=== PATIENT | female | born 1940 | race Caucasian/White ===

== ENCOUNTER 2021-04-13 17:54 | Inpatient (IN) | payer MEDICARE, OTHER ==
[~2021-04-13] VITALS: Ht 160 cm; Wt 67.6 kg
[2021-04-14] MEDS ORDERED: ONDANSETRON 4 MG (ZOFRAN) ORAL DISSOLVE TAB PO PRN (09:15)
[2021-04-14] MEDS ORDERED: MELATONIN 3 MG TABLET PO PRN (09:15)
[2021-04-14] MEDS ORDERED: guaiFENesin/DM (ROBITUSSIN DM) 10 ML UDC PO PRN (09:15)
[2021-04-14] MEDS ORDERED: ONDANSETRON 4 MG/2 ML (SDV) Z0FRAN IV PRN (09:15)
[2021-04-14] MEDS ORDERED: polyethylene glycoL POWDER 17 GM (MIRALAX) PACK PO PRN (09:15)
[2021-04-14] MEDS ORDERED: ANTACID SUSP 30 ML UDC (MYLANTA) PO PRN (09:15)
[2021-04-14] MEDS: ENOXAPARIN 40 MG/0.4 ML (LOVENOX) SYR SC SCH (09:45)
--- NOTE | 2021-04-14 09:57 | History & Physical-Hospitalist ---
History of Present Illness HPI/Chief Complaint CC: Acute hypoxic respiratory failure due to Covid-19 pneumonia from [place], [place] HPI: This is a female patient who was flown in from [place], [place] due to acute hypoxic respiratory failure due to Covid-19 pneumonia. Details are minimal considering she is in mild respiratory distress. She is prone, she is on Vapotherm and we talked briefly. She wants to be a full code, full intubation if that should come to be required. I will review the records and I did check her meds and labs and acute orders from Dr. Deng. Source: patient, RN/MD Exam Limitations: clinical condition Date Seen 04/14/21 Time Seen by a Provider: 11:00 Attending Physician Leny Deng MD PCP No,Local Physician Referring Physician Date of Admission Apr 14, 2021 at 09:12 Home Medications & Allergies Home Medications Reviewed patient Home Medication Reconciliation performed by pharmacy medication reconciliations technician support engineer and/or nursing. Patients Allergies have been reviewed. Allergies Allergies Coded Allergies Penicillins (Verified Allergy, Unknown, 04/14/21) codeine (Verified Allergy, Unknown, 04/14/21) theophylline (Verified Allergy, Unknown, 04/14/21) Past Huuldde-Dtajss-Ebmrum Hx Patient Social History Marrital Status: single Employed/Student: retired Tobacco Use?: No Smoking Status: Unknown if Ever Smoked Substance use?: No Alcohol Use?: No Current Status Advance Directives: No Communicates: Verbally Primary Language: Micronesian Preferred Spoken Language: Micronesian Is interpretation needed?: No Implanted or Applied Medical D: None Past Medical History Hypothyroidsim Review of Systems ROS-Unable to Obtain: Critical illness Constitutional: see HPI, dizziness, fever, malaise, weakness EENTM: no symptoms reported Respiratory: cough, dyspnea on exertion, short of breath, wheezing Cardiovascular: no symptoms reported Gastrointestinal: no symptoms reported All Other Systems Reviewed Negative Unless Noted: Yes Physical Exam Physical Exam Vital Signs Vital Signs - First Documented 04/14/21 04/14/21 04/14/21 09:15 09:21 09:30 Temp 36.6 Pulse 68 Resp 23 B/P (MAP) 135/67 Pulse Ox 89 O2 Delivery Vapotherm O2 Flow Rate 20.00 FiO2 70 Capillary Refill : Height, Weight, BMI Height: '" Weight: lbs. oz. kg; 26.21 BMI Method: General Appearance: Anxious, Chronically ill, Moderate Distress, Thin, Other (Prone, feverish, fatigued) Neck: Full Range of Motion, Normal Inspection, Non Tender Respiratory: Accessory Muscle Use, Decreased Breath Sounds Cardiovascular: No Murmur, Normal Peripheral Pulses, Tachycardia Extremity: Normal Capillary Refill, Normal Inspection, Normal Range of Motion, Non Tender, No Calf Tenderness, No Pedal Edema Neurologic/Psychiatric: Alert, Oriented x3 Results Results/Procedures Labs Laboratory Tests 04/15/21 01:50 Patient resulted labs reviewed. Assessment/Plan Admission Diagnosis Assessment: Acute hypoxic respiratory failure COVID-19 pneumonia Hypothyroidism Bacterial pneumonia Advanced age Plan: eICU management appreciated Vapotherm Prone Supportive care High risk for intubation Admission Status: Inpatient Order (span 2 midnights) Reason for Inpatient Admission: COVID-19 Diagnosis/Problems Diagnosis/Problems (1) Acute respiratory failure due to COVID-19 JUVENCIO CAM DO Apr 14, 2021 09:57
[2021-04-14] MEDS ORDERED: guaiFENesin/CODEINE (ROBITUSSIN AC) 10ML UDC PO PRN (10:00)
--- NOTE | 2021-04-14 12:00 | Occupational Therapy Eval ---
OT Evaluation-General/PLF Medical Diagnosis Admission Date Apr 14, 2021 at 09:12 Medical Diagnosis: COVID-19 Onset Date: Apr 14, 2021 Therapy Diagnosis Therapy Diagnosis: decreased ADL status, weakness Precautions Precautions/Isolations: Standard Precautions Referral Physician: Ish Velásquez Reason: Evaluation/Treatment Medical History Current History transfer from [facility] with COVID-19 Social History Home: Single Level Current Living Status: Alone Steps Into Home: 2 ADL-Prior Level of Function SCALE: Activities may be completed with or without assistive devices. 3-Eejuhbkoks-kaxsryw completes the activity by him/herself with no assistance from a helper. 5-Set-up or Clean-up Assistance-helper sets up or cleans up; patient completes activity. [place] assists only prior to or following the activity. 4-Supervision or Touching Assistance-helper provides verbal cues and/or touching/steadying and/or contact guard assistance as patient completes activity. Assistance may be provided throughout the activity or intermittently. 3-Partial/Moderate Assistance-helper does LESS THAN HALF the effort. [place] lifts, holds or supports trunk or limbs, but provides less than half the effort. 2-Substantial/Maximal Assistance-helper does MORE THAN HALF the effort. [place] lifts or holds trunk or limbs and provides more than half the effort. 4-Smkvhvfhb-adbdrd does ALL the effort. Patient does none of the effort to complete the activity. Or, the assistance of 2 or more helpers is required for the patient to complete the activity. If activity was not attempted, code reason: 7-Patient Refused. 9-Not Applicable-not attempted and the patient did not perform the activity befo re the current illness, exacerbation or injury. 10-Not Attempted due to Environmental Limitations-(lack of equipment, weather re straints, etc.). 88-Not Attempted due to Medical Conditions or Safety Concerns. ADL PLOF Comments Pt reports independent with ADLs and functional mobility, no AD. Self Care: Independent Functional Cognition: Independent OT Current Status Subjective Pt laying prone, agreeable to OT Tx. Pt's nurse states pt OK to be seen by OT. Mental Status/Objective Patient Orientation: Person, Place, Time, Situation Attachments: Fonseca Catheter, Oxygen (vapotherm) Current Upper Extremity ROM unable to assess due to decreased O2 saturation when supine Upper Extremity Strength unable to assess due to decreased O2 saturation when supine Other Treatments Pt laying prone in bed, agreeable to OT tx. Pt requests to transition to supine. Pt able to roll onto her back, SBA with assistance managing lines. Once supine, pt's O2 saturation decreased to 78% at the lowest, after extensive time, pt's O2 saturation only increased to 88%. Pt instructed to transition back to prone, pt rolled towards her R side into right sidelying/prone. Pt's O2 saturation returned to 89-90% after several minutes. OT cued pt for pursed lip breathing throughout session. Post tx, pt in bed, call light in reach and all needs met. Nurse notified of pt's position. Education OT Patient Education: Correct positioning, Energy conservation, Modified ADL techniques, Progress toward Goal/Update tx plan, Purpose of tx/functional activities, Rehab process Teaching Recipient: Patient Teaching Methods: Discussion Response to Teaching: Verbalize Understanding OT Usp Goals Usp Goals Time Frame: May 09, 2021 Eating (QC): 6 Oral Hygiene (QC): 5 Toileting Hygiene (QC): 4 Shower/Bathe Self (QC): 4 Upper Body Dressing (QC): 5 Lower Body Dressing (QC): 4 On/Off Footwear (QC): 4 Additional Goals: 1-Demonstrate ADL Tasks, 2-Verbalize Understanding, 3- ImproveStrength/Nicola 1=Demonstrate adherence to instructed precautions during ADL tasks. 2=Patient will verbalize/demonstrate understanding of assistive devices/modifications for ADL. 3=Patient will improve strength/tolerance for activity to enable patient to perform ADL's. OT Education/Plan Problem List/Assessment Assessment: Decreased Activ Tolerance, Decreased UE Strength, Impaired Bed Mobility, Impaired Funct Balance, Impaired I ADL's, Impaired Self-Care Skills Pt would benefit from skilled OT services in order to increase BUE strength and activity tolerance, increase independence and safety with ADLs, and improve pulmonary function for safe return home. Discharge Recommendations Plan/Recommendations: Continue POC Treatment Plan/Plan of Care Patient would benefit from OT for education, treatment and training to promote independence in ADL's, mobility, safety and/or upper extremity function for ADL's. Plan of Care: ADL Retraining, Functional Mobility, UE Funct Exercise/Act Treatment Duration: May 09, 2021 Frequency: 3 times per week (3-5 times per week) Estimated Hrs Per Day: .25 hour per day Agreement: Yes Rehab Potential: Fair Time/GCodes Start Time: 11:15 Stop Time: 11:32 Total Time Billed (hr/min): 17 Billed Treatment Time 1, CARLIE GAYTAN OT Apr 14, 2021 12:00
[2021-04-14] MEDS: inSUlin ASPART (NovoLOG) 1 UNIT/0.01 ML (CHARGE PER UNIT) SC SCH ×3 (12:15→21:00)
--- NOTE | 2021-04-14 12:38 | Tele-ICU Consult ---
History of Present Illness History of Present Illness Date Seen by Provider: Apr 14, 2021 Time Seen by Provider: 10:30 Date of Admission Allergies and Home Medications Allergies Coded Allergies: No Allergy Information Available (Unverified , 04/13/21) Past Medical/Social/Family Hx Patient Social History Tobacco Use?: No Substance use?: No Alcohol Use?: No Immunizations Up To Date Influenza Vaccine Up-to-Date: No; Not Current Current Status Advance Directives: No Communicates: Verbally Primary Language: Ukrainian Preferred Spoken Language: Ukrainian Is interpretation needed?: No Implanted or Applied Medical D: None Review of Systems Constitutional: see HPI Sepsis Event Evaluation Height, Weight, BMI Height: '" Weight: lbs. oz. kg; 26.21 BMI Method: Exam Exam Patient acknowledged, consented, and participated in this virtual visit which was conducted using real time audio/video Vital Signs Date Time Temp Pulse Resp B/P (MAP) Pulse Ox O2 Delivery O2 Flow Rate FiO2 04/14/21 12:21 66 04/14/21 12:15 57 25 116/48 94 Vapotherm 20.00 70.00 04/14/21 12:00 91 Vapotherm 20.00 70 04/14/21 12:00 60 14 115/88 92 Vapotherm 20.00 70.00 04/14/21 11:45 118/53 04/14/21 11:30 36.2 04/14/21 11:30 65 21 117/52 91 Vapotherm 20.00 70.00 04/14/21 11:15 68 9 131/59 96 Vapotherm 20.00 70.00 04/14/21 11:00 73 8 129/65 96 Vapotherm 20.00 70.00 04/14/21 10:45 131/61 04/14/21 10:30 137/61 04/14/21 10:15 76 25 134/78 97 Vapotherm 20.00 70.00 04/14/21 10:00 81 9 140/69 92 Vapotherm 20.00 70.00 04/14/21 09:45 88 26 162/91 93 Vapotherm 20.00 70.00 04/14/21 09:34 71 04/14/21 09:30 69 97 70 04/14/21 09:30 97 Vapotherm 20.00 70 12/13/21 09:30 68 18 133/69 90 Vapotherm 20.00 70.00 04/14/21 09:21 23 135/67 89 Vapotherm 20.00 70.00 04/14/21 09:15 Vapotherm 20.00 70 04/14/21 09:15 36.6 Height & Weight Height: '" Weight: lbs. oz. kg; 26.21 BMI Method: General Appearance: No Apparent Distress Assessment/Plan Assessment/Plan (Tele-ICU Physician , consultation) Available chart/ vitals / labs / Images reviewed transfer from other facility - Patient's information available fron RN tess Now in ICU, hemodynamically stable Video assessment done using teleICU camera, rest of exam as per RN Discussed with RN. Consultants: Hospital course: (04/14) 80 y/o female admitted for COVID+, transfer from other facility - , VT 20L 70% A/P AHRF / ARDS due to severe COVID19 ( CTA neg for pe 04/13 - in other facility , reportedly - VT 20L 70% , BIPAP can be tried PRN -prone position if able - conservative fluid strategy (aim for even or negative fluid balance YTSP-Ywqzveewmdx-1/COVID-19 PNA ( Symptom onset unknown now DX unvaccinted --Remdesivir ? --Dexamethasone -Hypercoagulable state -> lovenox ppx dose , CTA neg for pe 04/13 - in other facility , reportedly Monitor for superimposed bact PNA - check PCT , OFF abx Hyperglycemia - ISS , close f/up on steroids Lines : periph(Central Line Necessity Reviewed) Fonseca: 04/14 OG: Nutrition: po Analgesia: Anxiety/ delirium VTE Prophylaxis: urszula 40 Stress Ulcer Prophylaxis: po Plans in collaboration with bedside consultants and IM MDs. Discussed with RN to reach out if any questions or concerns A total of 35 minutes of critical care time was devoted to this patient today, required to treat and/or prevent further deterioration of critical care condition ( as above ) . BENEDICT ZAYAS MD Apr 14, 2021 12:38
[2021-04-14] MEDS: RT-ALBUTEROL HFA 8.5 GM INHALER IH SCH ×3 (13:56→21:29)
--- NOTE | 2021-04-14 13:57 | Physical Therapy Progress Note ---
Therapy Progress Note Discussed Patient with nurse as OT evaluated her this morning. Patients O2 sats declined quickly to 78% with bed mobility from prone to supine and she was transferred back to prone. Given this quick decline with minimal movement, PT will attempt to see patient tomorrow and evaluate if patient able to safely participate. Nurse in agreement. SUDHAKAR ROCHA PT Apr 14, 2021 13:57
[2021-04-14] MEDS: ACETAMINOPHEN 325 MG TABLET PO PRN (16:54)
[2021-04-14] MEDS: DOCUSATE SODIUM 100 MG (COLACE) CAP PO SCH (20:54)
[2021-04-14] MEDS: SENNOSIDES 8.6 MG (SENOKOT) TAB PO SCH (21:00)
[2021-04-15] MEDS ORDERED: morphine INJ 4 MG/ML 1 ML (VIAL/SYRINGE) ONE (01:37)
[2021-04-15] MEDS ORDERED: morphine INJ 4 MG/ML 1 ML (VIAL/SYRINGE) IVP STA (01:46)
[2021-04-15 02:03] LABS: BASOPHILS % (AUTO) 0 % (0-10); EOSINOPHILS % (AUTO) 0 % (0-10); HEMATOCRIT 35 % (35-52); HEMOGLOBIN 11.6 g/dL (11.5-16.0); LYMPHOCYTES # (AUTO) 0.6 10^3/uL (1.0-4.0); LYMPHOCYTES % (AUTO) 5 % (12-44); MEAN CORPUSCULAR HEMOGLOBIN 30 pg (25-34); MEAN CORPUSCULAR HGB CONC 33 g/dL (32-36); MEAN CORPUSCULAR VOLUME 89 fL (80-99); MEAN PLATELET VOLUME 11.5 fL (9.0-12.2); MONOCYTES # (AUTO) 0.5 10^3/uL (0.0-1.0); MONOCYTES % (AUTO) 4 % (0-12); NEUTROPHILS # (AUTO) 10.9 10^3/uL (1.8-7.8); NEUTROPHILS % (AUTO) 90 % (42-75); PLATELET COUNT 151 10^3/uL (130-400); WHITE BLOOD COUNT 12.1 10^3/uL (4.3-11.0)
[2021-04-15 02:15] LABS: POTASSIUM 3.5 MMOL/L (3.6-5.0)
[2021-04-15 02:16] LABS: CALCIUM 8.6 MG/DL (8.5-10.1)
[2021-04-15 02:21] LABS: CREATININE SERUM 0.8 MG/DL (0.60-1.30)
[2021-04-15 02:32] LABS: BAND NEUTROPHILS 1 %; LYMPHOCYTES % (MANUAL) 4 %; MONOCYTES % (MANUAL) 4 %; NEUTROPHILS % (MANUAL) 91 %; RBC MORPH NORMAL
[2021-04-15] MEDS: RT-ALBUTEROL HFA 8.5 GM INHALER IH SCH ×6 (02:40→22:16)
[2021-04-15] MEDS: MAGNESIUM 1 GM/100 ML IVPB 100 ML IV SCH (06:21)
[2021-04-15] MEDS: POTASSIUM CL 10MEQ/50ML IVPB 50 ML IV SCH (06:21)
[2021-04-15] MEDS: KCL 20 MEQ TAB (K-DUR) PO SCH (06:22)
[2021-04-15] MEDS: inSUlin ASPART (NovoLOG) 1 UNIT/0.01 ML (CHARGE PER UNIT) SC SCH ×4 (06:22→20:53)
[2021-04-15] MEDS: dexAMETHasone 6 MG TAB (DECADRON) PO SCH (06:33)
--- NOTE | 2021-04-15 07:07 | Progress Note - Hospitalist ---
Subjective HPI/CC On Admission Date Seen by Provider: Apr 15, 2021 Time Seen by Provider: 10:30 CC: Acute hypoxic respiratory failure due to Covid-19 pneumonia from [place], [place] HPI: This is a female patient who was flown in from [place], [place] due to acute hypoxic respiratory failure due to Covid-19 pneumonia. Details are minimal considering she is in mild respiratory distress. She is prone, she is on Vapotherm and we talked briefly. She wants to be a full code, full intubation if that should come to be required. I will review the records and I did check her m eds and labs and acute orders from Dr. Deng. Subjective/Events-last exam Pt still having difficulty Vapotherm is at 35 liters at 100% If she worsens any more she will need intubation She will get Actemra and place on Acyclovir empirically Sliding scale A will be initiated Lovenox will be maintained She does not want to be intubated so I did designate that on her CODE STATUS Review of Systems General: Fatigue, Malaise Pulmonary: Dyspnea, Cough Objective Exam Vital Signs Vital Signs Date Time Temp Pulse Resp B/P (MAP) Pulse Ox O2 Delivery O2 Flow Rate FiO2 04/16/21 04:05 NIV Bilevel 75.00 04/16/21 04:00 65 38 118/58 87 04/16/21 03:30 55 04/16/21 03:30 37.0 Capillary Refill : General Appearance: Anxious, Chronically ill, Moderate Distress Respiratory: Accessory Muscle Use, Decreased Breath Sounds Cardiovascular: Regular Rate, Rhythm Neurologic/Psychiatric: Alert, Oriented x3 Results/Procedures Lab Patient resulted labs reviewed. Assessment/Plan Assessment and Plan Assess & Plan/Chief Complaint Assessment: Acute hypoxic respiratory failure COVID-19 pneumonia Hypothyroidism Bacterial pneumonia Advanced age Plan: eICU management appreciated Vapotherm Prone Supportive care High risk for intubation 04/15/2021: Patient does not wish to be intubated Supportive care High risk for decline Diagnosis/Problems Diagnosis/Problems (1) Acute respiratory failure due to COVID-19 JUVENCIO CAM DO Apr 15, 2021 07:07
[2021-04-15] MEDS ORDERED: KCL 20 MEQ TAB (K-DUR) PO ONE (08:00)
[2021-04-15] MEDS: DOCUSATE SODIUM 100 MG (COLACE) CAP PO SCH ×2 (08:31→20:53)
[2021-04-15] MEDS: SENNOSIDES 8.6 MG (SENOKOT) TAB PO SCH ×2 (08:31→20:53)
[2021-04-15] MEDS: ENOXAPARIN 40 MG/0.4 ML (LOVENOX) SYR SC SCH (08:31)
[2021-04-15] MEDS ORDERED: [UNRECOGNIZED DRUG - REMARK] IV NR (10:00)
[2021-04-15] MEDS ORDERED: NS IV 1000 ML 1,000 ML ONE (10:22)
[2021-04-15] MEDS ORDERED: ZINC50TA11 PO (10:32)
[2021-04-15] MEDS ORDERED: IPRA3AMP31 NEB (10:32)
[2021-04-15] MEDS ORDERED: HYDR200T46 PO (10:32)
[2021-04-15] MEDS ORDERED: DEXA4TAB PO (10:32)
[2021-04-15] MEDS ORDERED: ONDA4TAB11 PO (10:32)
[2021-04-15] MEDS: ACYCLOVIR 400 MG TABLET (ZOVIRAX) PO SCH ×2 (10:32→20:53)
[2021-04-15] MEDS ORDERED: LEVO100T7 PO (10:32)
[2021-04-15] MEDS ORDERED: MTP25TSR PO (10:32)
[2021-04-15] MEDS ORDERED: MONT-40 PO (10:32)
[2021-04-15] MEDS ORDERED: AZIT250T12 PO (10:32)
[2021-04-15] MEDS: NS IV 1000 ML 1,000 ML IV SCH (10:34)
--- NOTE | 2021-04-15 11:18 | Tele-ICU Progress Note ---
Subjective Date Seen by a Provider: Apr 15, 2021 Time Seen by a Provider: 10:00 Sepsis Event Evaluation Height, Weight, BMI Height: '" Weight: lbs. oz. kg; 26.21 BMI Method: Exam Exam Patient acknowledged, consented, and participated in this virtual visit which was conducted using real time audio/video Vital Signs Date Time Temp Pulse Resp B/P (MAP) Pulse Ox O2 Delivery O2 Flow Rate FiO2 04/15/21 10:27 90 Vapotherm 40.00 100 04/15/21 08:00 95 Vapotherm 35.00 100 04/15/21 07:45 37.5 04/15/21 07:00 98 04/15/21 06:58 93 Vapotherm 35.00 100 04/15/21 06:00 82 34 144/65 92 Vapotherm 35.00 100.00 04/15/21 05:00 84 25 149/68 92 Vapotherm 35.00 100.00 04/15/21 04:49 91 Vapotherm 35.00 100.00 04/15/21 04:05 88 Vapotherm 35.00 90.00 04/15/21 04:00 37.1 04/15/21 04:00 100 23 154/66 85 Vapotherm 35.00 80.00 04/15/21 04:00 90 Vapotherm 35.00 80 04/15/21 03:00 95 21 158/65 21 Vapotherm 35.00 80.00 04/15/21 02:40 91 Vapotherm 35.00 80 04/15/21 02:00 80 28 159/71 91 Vapotherm 35.00 80.00 04/15/21 01:59 91 Vapotherm 35.00 80.00 04/15/21 01:03 84 04/15/21 01:00 87 15 147/65 84 Vapotherm 20.00 75.00 04/15/21 00:00 36.7 04/15/21 00:00 77 31 140/65 89 Vapotherm 20.00 75.00 04/14/21 23:59 92 Vapotherm 20.00 75 04/14/21 23:00 84 21 133/51 87 Vapotherm 20.00 75.00 04/14/21 22:00 88 18 110/42 89 Vapotherm 20.00 75.00 04/14/21 21:41 Vapotherm 20.00 75.00 04/14/21 21:29 90 Vapotherm 20.00 75 04/14/21 21:00 78 113/45 Vapotherm 20.00 70.00 04/14/21 20:00 93 Vapotherm 20.00 70 04/14/21 20:00 71 10 123/62 94 Vapotherm 20.00 70.00 04/14/21 19:00 64 04/14/21 19:00 64 24 123/59 94 Vapotherm 20.00 70.00 04/14/21 18:00 64 27 107/56 95 Vapotherm 20.00 70.00 04/14/21 17:45 62 28 94 Vapotherm 20.00 70.00 04/14/21 17:30 63 27 95 Vapotherm 20.00 70.00 04/14/21 17:15 65 25 93 Vapotherm 20.00 70.00 04/14/21 17:00 71 17 122/65 91 Vapotherm 20.00 70.00 04/14/21 16:45 30 88 Vapotherm 20.00 70.00 04/14/21 16:30 72 19 92 Vapotherm 20.00 70.00 04/14/21 16:15 72 26 89 Vapotherm 20.00 70.00 04/14/21 16:13 36.1 04/14/21 16:00 93 Vapotherm 20.00 70 04/14/21 16:00 68 29 113/53 93 Vapotherm 20.00 70.00 04/14/21 15:45 65 27 118/51 94 Vapotherm 20.00 70.00 04/14/21 15:30 68 26 116/52 93 Vapotherm 20.00 70.00 04/14/21 15:15 70 30 124/52 92 Vapotherm 20.00 70.00 04/14/21 15:00 71 31 120/50 91 Vapotherm 20.00 70.00 04/14/21 14:45 73 29 119/49 91 Vapotherm 20.00 70.00 04/14/21 14:30 77 8 108/47 91 Vapotherm 20.00 70.00 04/14/21 14:15 103/42 04/14/21 14:00 64 28 119/59 97 Vapotherm 20.00 70.00 04/14/21 13:56 97 Vapotherm 20.00 70 04/14/21 13:45 56 19 117/57 97 Vapotherm 20.00 70.00 04/14/21 13:30 56 15 115/55 94 Vapotherm 20.00 70.00 04/14/21 13:15 64 14 142/54 92 Vapotherm 20.00 70.00 04/14/21 13:00 64 8 107/55 92 Vapotherm 20.00 70.00 04/14/21 12:45 58 23 108/52 96 Vapotherm 20.00 70.00 04/14/21 12:30 58 26 106/43 93 Vapotherm 20.00 70.00 04/14/21 12:21 66 04/14/21 12:15 57 25 116/48 94 Vapotherm 20.00 70.00 04/14/21 12:00 91 Vapotherm 20.00 70 04/14/21 12:00 60 14 115/88 92 Vapotherm 20.00 70.00 04/14/21 11:45 118/53 04/14/21 11:30 36.2 04/14/21 11:30 65 21 117/52 91 Vapotherm 20.00 70.00 I & O 04/15/21 07:00 Intake Total 660 ml Output Total 1026 ml Balance -366 ml Height & Weight Height: '" Weight: lbs. oz. kg; 26.21 BMI Method: General Appearance: Anxious, Chronically ill, Moderate Distress, Thin, Other (Prone, feverish, fatigued) Neck: Full Range of Motion, Normal Inspection, Non Tender Respiratory: Accessory Muscle Use, Decreased Breath Sounds Cardiovascular: No Murmur, Normal Peripheral Pulses, Tachycardia Extremity: Normal Capillary Refill, Normal Inspection, Normal Range of Motion, Non Tender, No Calf Tenderness, No Pedal Edema Neurologic/Psychiatric: Alert, Oriented x3 Results Lab Laboratory Tests 04/15/21 01:50 Assessment/Plan Assessment/Plan (Tele-ICU Physician , consultation) Available chart/ vitals / labs / Images reviewed transfer from other facility - Patient's information available fron RN tess Now in ICU, hemodynamically stable Video assessment done using teleICU camera, rest of exam as per RN Discussed with RN. Consultants: Hospital course: (04/14) 80 y/o female admitted for COVID+, transfer from other facility - , VT 20L 70% 04/15-- [place] 50L 100% , A/P AHRF / ARDS due to severe COVID19 ( CTA neg for pe 04/13 - in other facility , reportedly - VT 50L 100% , BIPAP can be tried PRN -prone position if able - conservative fluid strategy (aim for even or negative fluid balance BAXS-Ronczamlgvl-3/COVID-19 PNA ( Symptom onset unknown now DX unvaccinted --Dexamethasone -actemrta 04/15 -Hypercoagulable state -> lovenox ppx dose , CTA neg for pe 04/13 - in other facility , report reviewed Monitor for superimposed bact PNA - check PCT , OFF abx Hyperglycemia - ISS , close f/up on steroids Lines : periph (Central Line Necessity Reviewed) Fonseca: 04/14 OG: Nutrition: po Analgesia: Anxiety/ delirium VTE Prophylaxis: urszula 40 Stress Ulcer Prophylaxis: po Plans in collaboration with bedside consultants and IM MDs. Discussed with RN to reach out if any questions or concerns A total of 35 minutes of critical care time was devoted to this patient today, required to treat and/or prevent further deterioration of critical care condition ( as above ) . BENEDICT ZAYAS MD Apr 15, 2021 11:18
--- NOTE | 2021-04-15 11:54 | Occupational Ther Daily Note ---
OT Current Status-Daily Note Subjective Pt desats into low 80's when talking, able to recover with rest. Appearance Left supine in bed, respiratory therapy in room at OT departure. Mental Status/Objective Attachments: Fonseca Catheter, IV, Oxygen, Telemetry ADL-Treatment Therapy Code Descriptions/Definitions Functional [place] Measure: 0=Not Assessed/NA 4=Minimal Assistance 1=Total Assistance 5=Supervision or Setup 2=Maximal Assistance 6=Modified [place] 3=Moderate Assistance 7=Complete IndependenceSCALE: Activities may be completed with or without assistive devices. 8-Lyhhfxueud-aexvdkg completes the activity by him/herself with no assistance from a helper. 5-Set-up or Clean-up Assistance-helper sets up or cleans up; patient completes activity. [place] assists only prior to or following the activity. 4-Supervision or Touching Assistance-helper provides verbal cues and/or touching/steadying and/or contact guard assistance as patient completes activity. Assistance may be provided throughout the activity or intermittently. 3-Partial/Moderate Assistance-helper does LESS THAN HALF the effort. [place] lifts, holds or supports trunk or limbs, but provides less than half the effort. 2-Substantial/Maximal Assistance-helper does MORE THAN HALF the effort. [place] lifts or holds trunk or limbs and provides more than half the effort. 7-Otwshidfq-iumkps does ALL the effort. Patient does none of the effort to complete the activity. Or, the assistance of 2 or more helpers is required for the patient to complete the activity. If activity was not attempted, code reason: 7-Patient Refused. 9-Not Applicable-not attempted and the patient did not perform the activity before the current illness, exacerbation or injury. 10-Not Attempted due to Environmental Limitations-(lack of equipment, weather restraints, etc.). 88-Not Attempted due to Medical Conditions or Safety Concerns. Eating (QC): 4 Oral Hygiene (QC): 4 At OT arrival, Pt attempting to eat with bed almost flat, having difficult time. Oxygen 87% at rest. OT brought HOB upright, oxygen improves to low-mid 90's. Pt shaky when brining silverware/cup to mouth, requires intermittent CGA to keep from spilling. Pt moves slow with all movements. During session, pt answered phone call yet observed to desat into low 80's with increased communication. Requires cues to not hold breath. Pt with mumbled speech and soft vocal volume, difficult to understand at times. Respiratory therapy in room at OT departure. Increase in O2 Flow Rate required on Vapotherm. Education OT Patient Education: Correct positioning, Energy conservation, Progress toward Goal/Update tx plan, Purpose of tx/functional activities, Safety issues Teaching Recipient: Patient Teaching Methods: Discussion Response to Teaching: Reinforcement Needed OT Electron Beam Welder Setter Goals Electron Beam Welder Setter Goals Time Frame: May 09, 2021 Eating (QC): 6 Oral Hygiene (QC): 5 Toileting Hygiene (QC): 4 Shower/Bathe Self (QC): 4 Upper Body Dressing (QC): 5 Lower Body Dressing (QC): 4 On/Off Footwear (QC): 4 Additional Goals: 1-Demonstrate ADL Tasks, 2-Verbalize Understanding, 3- ImproveStrength/Nicola 1=Demonstrate adherence to instructed precautions during ADL tasks. 2=Patient will verbalize/demonstrate understanding of assistive devices/mo difications for ADL. 3=Patient will improve strength/tolerance for activity to enable patient to perform ADL's. OT Education/Plan Problem List/Assessment Assessment: Decreased Activ Tolerance, Decreased Safety Aware, Decreased UE Strength, Impaired I ADL's, Impaired Self-Care Skills Pt would benefit from skilled OT services in order to increase BUE strength and activity tolerance, increase independence and safety with ADLs, and improve pulmonary function for safe return home. Discharge Recommendations Plan/Recommendations: Continue POC Treatment Plan/Plan of Care Treatment,Training & Education: Yes Patient would benefit from OT for education, treatment and training to promote independence in ADL's, mobility, safety and/or upper extremity function for ADL's. Plan of Care: ADL Retraining, Functional Mobility, UE Funct Exercise/Act Treatment Duration: May 09, 2021 Frequency: 3 times per week (3-5 times per week) Estimated Hrs Per Day: .25 hour per day Agreement: Yes Rehab Potential: Fair Time/GCodes Start Time: 10:16 Stop Time: 10:28 Total Time Billed (hr/min): 12 Billed Treatment Time 1, Najma Cook OT Apr 15, 2021 11:54
--- NOTE | 2021-04-15 11:57 | Physical Therapy Evaluation ---
PT Evaluation-General Medical Diagnosis Admission Date Apr 14, 2021 at 09:12 Medical Diagnosis: COVID-19 Onset Date: Apr 14, 2021 Therapy Diagnosis Therapy Diagnosis: Gait deficit, strength deficit Precautions Precautions/Isolations: Airborne Isolation, Droplet Isolation, Fall Prevention Referral Physician: Ish Reason for Referral: Evaluation/Treatment Social History Home: Single Level Current Living Status: Alone Entry Into Home: Stairs With Railing PT Steps Into Home: 2 Prior Prior Level of Function SCALE: Activities may be completed with or without assistive devices. 0-Uhrmiorwdz-ibmhhts completes the activity by him/herself with no assistance from a helper. 5-Set-up or Clean-up Assistance-helper sets up or cleans up; patient completes activity. [place] assists only prior to or following the activity. 4-Supervision or Touching Assistance-helper provides verbal cues and/or touching/steadying and/or contact guard assistance as patient completes activity. Assistance may be provided throughout the activity or intermittently. 3-Partial/Moderate Assistance-helper does LESS THAN HALF the effort. [place] lifts, holds or supports trunk or limbs, but provides less than half the effort. 2-Substantial/Maximal Assistance-helper does MORE THAN HALF the effort. [place] lifts or holds trunk or limbs and provides more than half the effort. 1-Xebotsycj-mwekss does ALL the effort. Patient does none of the effort to complete the activity. Or, the assistance of 2 or more helpers is required for the patient to complete the activity. If activity was not attempted, code reason: 7-Patient Refused. 9-Not Applicable-not attempted and the patient did not perform the activity before the current illness, exacerbation or injury. 10-Not Attempted due to Environmental Limitations-(lack of equipment, weather restraints, etc.). 88-Not Attempted due to Medical Conditions or Safety Concerns. Bed Mobility: 6 Transfers (B,C,W/C): 6 Gait: 6 Stairs: 6 Indoor Mobility (Ambulation): Independent Stairs: Independent Prior Devices Use: None PT Evaluation-Current Subjective Patient reports 0/10 pain. She reports she feels she is breathing a little better, but is still very weak. Objective Patient Orientation: Person ROM/Strength ROM Lower Extremities WFLs bilateral LEs all available planes Strength Lower Extremities 3/5 bilaterally all hip, knee and ankle joints. Sensory Vision: Functional Hearing: Functional Sensation Right Lower Extremit: Intact Sensation Left Lower Extremity: Intact Transfers Roll Left to Right (QC): 3 Sit to Lying (QC): 3 Lying to Sitting/Side of Bed(Q: 3 Sit to Stand (QC): 3 Gait Does the Patient Walk?: No and Walking Goal IS indicated Mode of Locomotion: Walk Anticipated Mode of Locomotion: Walk Walk 10 feet (QC): 88 Distance: 3 feet Balance Sitting Static: Fair Sitting Dynamic: Fair Standing Static: Fair Standing Dynamic: Poor Treatment Patient performed sit to stand with min a and right lateral stepping with min A x 2-3 feet Assessment/Needs Patient tolerated treatment fair. Demonstrates min a with all bed mobility and transfers. Patient sits at edge of bed for the majority of the treatment time. Patient requires frequent verbal cues for breathing in through her nose however stays between 85% and 95% most of the treatment. Patient demonstrates a coughing spell for ~ 1 minute, during which time her O2 sats decline to 74%, however quickly return to 88% with pursed lipped breathing. Patient performs sit to stand with min a and is able to sidestep 2-3 feet towards the head of the bed. Patient in bed post treatment in right prone sidelying, with all needs met, nursing notified, call light in hand. Rehab Potential: Good PT Short Term Goals Short Term Goals Time Frame: Apr 22, 2021 Roll Left & Right: 5 Sit to lyin Lying to sitting on side of be: 5 Sit to stand: 5 Chair/dgh-lo-tjmwc transfer: 5 Toilet transfer: 5 Walk 10 feet: 4 Walk 50 feet with two turns: 4 Walk 150 feet: 4 PT Second Officer Goals Second Officer Goals PT Second Officer Goals Time Frame: May 02, 2021 Roll Left & Right (QC): 6 Sit to Lying (QC): 6 Lying-Sitting on Side/Bed(QC): 6 Sit to Stand (QC): 6 Chair/Slq-pm-Cvjlz Xfer(QC): 6 Toilet Transfer (QC): 6 Does the Patient Walk: Yes Walk 10 feet (QC): 5 Walk 50ft with 2 Turns (QC): 5 Walk 150 ft (QC): 5 1 Step (curb) (QC): 4 4 Steps (QC): 4 PT Plan Problem List Problem List: Activity Tolerance, Functional Strength, Safety, Balance, Gait, Transfer, Bed Mobility, ROM Treatment/Plan Treatment Plan: Continue Plan of Care Treatment Plan: Bed Mobility, Education, Functional Activity Nicola, Functional Strength, Group Therapy, Gait, Safety, Therapeutic Exercise, Transfers Treatment Duration: May 31, 2021 Frequency: 6 times per week Estimated Hrs Per Day: .25 hour per day Safety Risks/Education Patient Education: Gait Training, Transfer Techniques, Reviewed Precautions Teaching Recipient: Patient Teaching Methods: Demonstration, Discussion Response to Teaching: Verbalize Understanding, Return Demonstration Discharge Recommendations Target Placement Post acute placement recommended Time/GCodes Time In: 1115 Time Out: 1140 Total Billed Treatment Time: 25 Total Billed Treatment Visit, KRISTIE Santos JOHN A PT Apr 15, 2021 11:57
[2021-04-15 17:18] VITALS: BP 113/100
[2021-04-15 19:09] VITALS: BP 140/76
[2021-04-15 22:17] VITALS: BP 128/63
[2021-04-16 02:38] VITALS: BP 131/72
[2021-04-16] MEDS: RT-ALBUTEROL HFA 8.5 GM INHALER IH SCH ×6 (02:38→22:43)
[2021-04-16] MEDS: NS IV 1000 ML 1,000 ML IV SCH ×2 (04:04→20:52)
[2021-04-16] MEDS: inSUlin ASPART (NovoLOG) 1 UNIT/0.01 ML (CHARGE PER UNIT) SC SCH ×4 (05:20→20:51)
[2021-04-16 05:34] LABS: BASOPHILS % (AUTO) 0 % (0-10); EOSINOPHILS # (AUTO) 0.1 10^3/uL (0.0-0.3); EOSINOPHILS % (AUTO) 1 % (0-10); HEMATOCRIT 32 % (35-52); HEMOGLOBIN 10.7 g/dL (11.5-16.0); LYMPHOCYTES # (AUTO) 0.7 10^3/uL (1.0-4.0); LYMPHOCYTES % (AUTO) 8 % (12-44); MEAN CORPUSCULAR HEMOGLOBIN 30 pg (25-34); MEAN CORPUSCULAR HGB CONC 33 g/dL (32-36); MEAN CORPUSCULAR VOLUME 90 fL (80-99); MEAN PLATELET VOLUME 11.5 fL (9.0-12.2); MONOCYTES # (AUTO) 0.2 10^3/uL (0.0-1.0); MONOCYTES % (AUTO) 2 % (0-12); NEUTROPHILS # (AUTO) 8.2 10^3/uL (1.8-7.8); NEUTROPHILS % (AUTO) 88 % (42-75); PLATELET COUNT 146 10^3/uL (130-400); WHITE BLOOD COUNT 9.3 10^3/uL (4.3-11.0)
[2021-04-16 05:44] LABS: POTASSIUM 4.1 MMOL/L (3.6-5.0)
[2021-04-16 05:45] LABS: CALCIUM 8.5 MG/DL (8.5-10.1)
[2021-04-16 05:50] LABS: CREATININE SERUM 0.68 MG/DL (0.60-1.30)
--- NOTE | 2021-04-16 05:51 | Progress Note - Hospitalist ---
Subjective HPI/CC On Admission Date Seen by Provider: Apr 16, 2021 Time Seen by Provider: 10:00 CC: Acute hypoxic respiratory failure due to Covid-19 pneumonia from [place], [place] HPI: This is a female patient who was flown in from [place], [place] due to acute hypoxic respiratory failure due to Covid-19 pneumonia. Details are minimal considering she is in mild respiratory distress. She is prone, she is on Vapotherm and we talked briefly. She wants to be a full code, full intubation if that should come to be required. I will review the records and I did check her meds and labs and acute orders from Dr. Deng. Subjective/Events-last exam Pt doing okay Alternating both BiPAP and Vapotherm Do not intubate Eating a little bit of breakfast Still very frail and sick Review of Systems General: Fatigue, Malaise Pulmonary: Dyspnea, Cough Objective Exam Vital Signs Vital Signs Date Time Temp Pulse Resp B/P (MAP) Pulse Ox O2 Delivery O2 Flow Rate FiO2 04/17/21 03:48 NIV Bilevel 80.00 04/17/21 03:45 94 100 04/17/21 03:35 37.2 04/17/21 03:00 79 25 Capillary Refill : Less Than 3 Seconds General Appearance: No Apparent Distress, WD/WN, Anxious, Chronically ill Respiratory: No Accessory Muscle Use, No Respiratory Distress, Decreased Breath Sounds Cardiovascular: Regular Rate, Rhythm Neurologic/Psychiatric: Alert, Oriented x3, No Motor/Sensory Deficits, Normal Mood/Affect Results/Procedures Lab Laboratory Tests 04/16/21 05:14 04/17/21 04:46 Patient resulted labs reviewed. Assessment/Plan Assessment and Plan Assess & Plan/Chief Complaint Assessment: Acute hypoxic respiratory failure COVID-19 pneumonia Hypothyroidism Bacterial pneumonia Advanced age Plan: eICU management appreciated Vapotherm Prone Supportive care High risk for intubation 04/15/2021: Patient does not wish to be intubated Supportive care High risk for decline 04/16/2021: No major changes Continue alternating Vapotherm and BiPAP High risk for decompensation Diagnosis/Problems Diagnosis/Problems (1) Acute respiratory failure due to COVID-19 JUVENCIO CAM DO Apr 16, 2021 05:51
[2021-04-16 05:52] LABS: MAGNESIUM 2.1 MG/DL (1.6-2.4)
[2021-04-16] MEDS: MAGNESIUM 1 GM/100 ML IVPB 100 ML IV SCH (06:14)
[2021-04-16] MEDS: KCL 20 MEQ TAB (K-DUR) PO SCH (06:14)
[2021-04-16] MEDS: POTASSIUM CL 10MEQ/50ML IVPB 50 ML IV SCH (06:14)
[2021-04-16] MEDS: dexAMETHasone 6 MG TAB (DECADRON) PO SCH (06:25)
[2021-04-16 07:13] VITALS: BP 127/76
[2021-04-16] MEDS: SENNOSIDES 8.6 MG (SENOKOT) TAB PO SCH ×2 (08:06→19:32)
[2021-04-16] MEDS: ACYCLOVIR 400 MG TABLET (ZOVIRAX) PO SCH ×2 (08:06→20:51)
[2021-04-16] MEDS: DOCUSATE SODIUM 100 MG (COLACE) CAP PO SCH ×2 (08:06→19:32)
[2021-04-16] MEDS: ENOXAPARIN 40 MG/0.4 ML (LOVENOX) SYR SC SCH (08:06)
--- NOTE | 2021-04-16 10:36 | Occupational Ther Daily Note ---
OT Current Status-Daily Note Subjective Pt denies pain, agreeable to treatment. Appearance Returned to supine in bed, all needs within reach. Mental Status/Objective Attachments: Fonseca Catheter, IV, Oxygen, Telemetry ADL-Treatment Therapy Code Descriptions/Definitions Functional [place] Measure: 0=Not Assessed/NA 4=Minimal Assistance 1=Total Assistance 5=Supervision or Setup 2=Maximal Assistance 6=Modified [place] 3=Moderate Assistance 7=Complete IndependenceSCALE: Activities may be completed with or without assistive devices. 2-Iddwostjzb-ijzfjgy completes the activity by him/herself with no assistance from a helper. 5-Set-up or Clean-up Assistance-helper sets up or cleans up; patient completes activity. [place] assists only prior to or following the activity. 4-Supervision or Touching Assistance-helper provides verbal cues and/or touching/steadying and/or contact guard assistance as patient completes activity. Assistance may be provided throughout the activity or intermittently. 3-Partial/Moderate Assistance-helper does LESS THAN HALF the effort. [place] lifts, holds or supports trunk or limbs, but provides less than half the effort. 2-Substantial/Maximal Assistance-helper does MORE THAN HALF the effort. [place] lifts or holds trunk or limbs and provides more than half the effort. 3-Pianmclcg-ywivuv does ALL the effort. Patient does none of the effort to complete the activity. Or, the assistance of 2 or more helpers is required for the patient to complete the activity. If activity was not attempted, code reason: 7-Patient Refused. 9-Not Applicable-not attempted and the patient did not perform the activity before the current illness, exacerbation or injury. 10-Not Attempted due to Environmental Limitations-(lack of equipment, weather restraints, etc.). 88-Not Attempted due to Medical Conditions or Safety Concerns. Eating (QC): 5 Other Treatment Supine<>Sit: CGA-Min A. Extra effort with cues for preferred technique. Pt sits at EOB for majority of session. Desat to low 80's. Frequent cues for PLB te chniques. Pt only able to achieve 84% at seated level. Returns to supine. After ~1-2 minutes in supine, pt recovers to 92%. Improved ability to feed self observed this session. Education OT Patient Education: Correct positioning, Energy conservation, Modified ADL techniques, Progress toward Goal/Update tx plan, Purpose of tx/functional activities, Safety issues, Transfer techniques Teaching Recipient: Patient Teaching Methods: Discussion Response to Teaching: Verbalize Understanding, Return Demonstration, Reinforcement Needed OT Safety Advisor Goals Long-Term Goals Time Frame: May 09, 2021 Eating (QC): 6 Oral Hygiene (QC): 5 Toileting Hygiene (QC): 4 Shower/Bathe Self (QC): 4 Upper Body Dressing (QC): 5 Lower Body Dressing (QC): 4 On/Off Footwear (QC): 4 Additional Goals: 1-Demonstrate ADL Tasks, 2-Verbalize Understanding, 3- ImproveStrength/Nicola 1=Demonstrate adherence to instructed precautions during ADL tasks. 2=Patient will verbalize/demonstrate understanding of assistive devices/modifications for ADL. 3=Patient will improve strength/tolerance for activity to enable patient to perform ADL's. OT Education/Plan Problem List/Assessment Assessment: Decreased Activ Tolerance, Decreased UE Strength, Impaired Funct Balance, Impaired I ADL's, Impaired Self-Care Skills Pt would benefit from skilled OT services in order to increase BUE strength and activity tolerance, increase independence and safety with ADLs, and improve pulmonary function for safe return home. Discharge Recommendations Plan/Recommendations: Continue POC Treatment Plan/Plan of Care Treatment,Training & Education: Yes Patient would benefit from OT for education, treatment and training to promote independence in ADL's, mobility, safety and/or upper extremity function for ADL's. Plan of Care: ADL Retraining, Functional Mobility, UE Funct Exercise/Act Treatment Duration: May 09, 2021 Frequency: 3 times per week (3-5 times per week) Estimated Hrs Per Day: .25 hour per day Agreement: Yes Rehab Potential: Good Time/GCodes Start Time: 09:55 Stop Time: 10:06 Total Time Billed (hr/min): 11 Billed Treatment Time 1 visit Najma Duffy OT Apr 16, 2021 10:36
--- NOTE | 2021-04-16 11:28 | Physical Therapy Daily Note ---
PT Daily Note-Current Subjective Patient lying supine in bed upon PT arrival, agreeable to treatment. Reports 0/10 pain currently. Transfers SCALE: Activities may be completed with or without assistive devices. 9-Friyivkyji-owqzcdb completes the activity by him/herself with no assistance from a helper. 5-Set-up or Clean-up Assistance-helper sets up or cleans up; patient completes activity. [place] assists only prior to or following the activity. 4-Supervision or Touching Assistance-helper provides verbal cues and/or touching/steadying and/or contact guard assistance as patient completes activity. Assistance may be provided throughout the activity or intermittently. 3-Partial/Moderate Assistance-helper does LESS THAN HALF the effort. [place] lifts, holds or supports trunk or limbs, but provides less than half the effort. 2-Substantial/Maximal Assistance-helper does MORE THAN HALF the effort. [place] lifts or holds trunk or limbs and provides more than half the effort. 2-Tkaafsjjf-ubxszl does ALL the effort. Patient does none of the effort to complete the activity. Or, the assistance of 2 or more helpers is required for the patient to complete the activity. If activity was not attempted, code reason: 7-Patient Refused. 9-Not Applicable-not attempted and the patient did not perform the activity before the current illness, exacerbation or injury. 10-Not Attempted due to Environmental Limitations-(lack of equipment, weather restraints, etc.). 88-Not Attempted due to Medical Conditions or Safety Concerns. Exercises Supine Ex: Ankle pumps, Quad Set, Glut sets, Heel Slides, Short Arc Quads, Straight leg raise, Hip abd/add Supine Reps: 20 Assessment Current Status: Fair Progress Patient tolerated treatment poorly. She was only able to tolerate LE exercises as listed above. Frequently her O2 sats decreased to 85-87% and she required frequent rest breaks and verbal cues for pursed lip breathing. Patient in bed post treatment with all needs met, nursing notified, call light in reach. Will attempt to progress next PT visit if patient able to tolerate. PT Short Term Goals Short Term Goals Time Frame: Apr 22, 2021 Roll Left & Right: 5 Sit to lyin Lying to sitting on side of be: 5 Sit to stand: 5 Chair/opu-oq-duugf transfer: 5 Toilet transfer: 5 Walk 10 feet: 4 Walk 50 feet with two turns: 4 Walk 150 feet: 4 PT Correction Goals Correction Goals PT Web Services Architect Goals Time Frame: May 02, 2021 Roll Left & Right (QC): 6 Sit to Lying (QC): 6 Lying-Sitting on Side/Bed(QC): 6 Sit to Stand (QC): 6 Chair/Bxq-lx-[place] Xfer(QC): 6 Toilet Transfer (QC): 6 Does the Patient Walk: Yes Walk 10 feet (QC): 5 Walk 50ft with 2 Turns (QC): 5 Walk 150 ft (QC): 5 1 Step (curb) (QC): 4 4 Steps (QC): 4 PT Plan Treatment/Plan Treatment Plan: Continue Plan of Care Treatment Plan: Bed Mobility, Education, Functional Activity Nicola, Functional Strength, Group Therapy, Gait, Safety, Therapeutic Exercise, Transfers Treatment Duration: May 31, 2021 Frequency: 6 times per week Estimated Hrs Per Day: .25 hour per day Safety Risks/Education Patient Education: Safety Issues Teaching Recipient: Patient Teaching Methods: Discussion Response to Teaching: Reinforcement Needed Time/GCodes Time In: 1045 Time Out: 1110 Total Billed Treatment Time: 25 Total Billed Treatment Visit, Ex (2) SUDHAKAR ROCHA PT Apr 16, 2021 11:28
--- NOTE | 2021-04-16 12:12 | Tele-ICU Progress Note ---
Subjective Date Seen by a Provider: Apr 16, 2021 Time Seen by a Provider: 12:12 Sepsis Event Evaluation Height, Weight, BMI Height: '" Weight: lbs. oz. kg; 26.21 BMI Method: Exam Exam Patient acknowledged, consented, and participated in this virtual visit which was conducted using real time audio/video Vital Signs Date Time Temp Pulse Resp B/P (MAP) Pulse Ox O2 Delivery O2 Flow Rate FiO2 04/16/21 11:43 36.7 04/16/21 11:27 92 Vapotherm 40.00 70.00 04/16/21 11:27 95 Vapotherm 40.00 80.00 04/16/21 11:20 94 Vapotherm 40.00 90.00 04/16/21 10:42 90 Vapotherm 40.00 100 04/16/21 09:25 90 Vapotherm 40.00 100.00 04/16/21 09:17 91 NIV Bilevel 45.00 04/16/21 09:15 92 NIV Bilevel 55.00 04/16/21 08:10 93 NIV Bilevel 65 04/16/21 07:50 36.8 04/16/21 07:13 68 20 93 65.00 04/16/21 07:00 67 04/16/21 05:12 NIV Bilevel 65.00 04/16/21 04:05 NIV Bilevel 75.00 04/16/21 04:00 65 38 118/58 87 NIV Bilevel 55.00 04/16/21 03:30 93 NIV Bilevel 55 04/16/21 03:30 37.0 NIV Bilevel 55.00 04/16/21 03:00 75 28 124/71 91 NIV Bilevel 55.00 04/16/21 02:38 70 22 94 55.00 04/16/21 02:00 69 21 131/72 93 NIV Bilevel 55.00 04/16/21 01:00 80 04/16/21 01:00 78 18 145/66 84 NIV Bilevel 55.00 04/16/21 00:00 70 20 125/59 96 NIV Bilevel 55.00 04/15/21 23:40 36.4 NIV Bilevel 55.00 04/15/21 23:40 98 NIV Bilevel 55 04/15/21 23:00 79 17 125/72 96 NIV Bilevel 55.00 04/15/21 22:17 76 20 96 55.00 04/15/21 22:16 NIV Bilevel 55.00 04/15/21 22:00 NIV Bilevel 65.00 04/15/21 22:00 69 13 128/63 98 NIV Bilevel 75.00 04/15/21 21:10 NIV Bilevel 75.00 04/15/21 21:00 72 23 122/62 91 NIV Bilevel 80.00 04/15/21 20:54 NIV Bilevel 80.00 04/15/21 20:00 76 19 126/81 98 NIV Bilevel 90.00 04/15/21 19:50 NIV Bilevel 90.00 04/15/21 19:50 93 NIV Bilevel 100 04/15/21 19:40 37.0 NIV Bilevel 100.00 04/15/21 19:09 72 23 93 100.00 04/15/21 19:00 73 23 140/76 93 NIV Bilevel 100.00 04/15/21 19:00 72 04/15/21 17:18 75 20 93 100.00 04/15/21 17:00 80 14 113/100 87 NIV Bilevel 100.00 04/15/21 16:02 37.4 04/15/21 16:00 93 Vapotherm 40.00 100 04/15/21 16:00 81 12 115/68 90 Vapotherm 40.00 100.00 04/15/21 15:00 86 117/59 88 Vapotherm 40.00 100.00 04/15/21 14:40 96 Vapotherm 40.00 100 04/15/21 14:00 86 16 122/62 92 Vapotherm 40.00 100.00 04/15/21 13:00 82 10 116/68 96 Vapotherm 40.00 100.00 04/15/21 13:00 80 I & O 04/16/21 07:00 Intake Total 1820 ml Output Total 805 ml Balance 1015 ml Height & Weight Height: '" Weight: lbs. oz. kg; 26.21 BMI Method: General Appearance: Anxious, Chronically ill, Moderate Distress Neck: Full Range of Motion, Normal Inspection, Non Tender Respiratory: Accessory Muscle Use, Decreased Breath Sounds Cardiovascular: Regular Rate, Rhythm Capillary Refill: Less Than 3 Seconds Extremity: Normal Capillary Refill, Normal Inspection, Normal Range of Motion, Non Tender, No Calf Tenderness, No Pedal Edema Neurologic/Psychiatric: Alert, Oriented x3 Results Lab Laboratory Tests 04/15/21 01:50 04/16/21 05:14 Assessment/Plan Assessment/Plan (Tele-ICU Physician , Progress Note ) Available chart/ vitals / labs / Images reviewed Video assessment done using teleICU camera, rest of exam as per RN Discussed with RN , EXAM PER RN Events overnight : bipap Afebrile FiO2 - I/O = even Drips: Pressors: , hemodynamically stable Consultants: Hospital course: (04/14) 80 y/o female admitted for COVID+, transfer from other facility - , VT 20L 70% 04/15-- VT 50L 100% , 04/16 - bipap 13/8 65% at night , VT 70L 100% A/P AHRF / ARDS due to severe COVID19 ( CTA neg for pe 04/13 - in other facility , reportedly -bipap 13/8 65% at night - tolerates OK , VT 70L 100% -prone position if able - on SIDE - conservative fluid strategy (aim for even or negative fluid balance UPCR-Cbimlrlurkb-1/COVID-19 PNA ( Symptom onset unknown now DX unvaccinted -Dexamethasone -actemrta 04/15 ( acyclovir 30 d ) -Hypercoagulable state -> lovenox ppx dose , CTA neg for pe 04/13 - in other facility , report reviewed Monitor for superimposed bact PNA -neg PCT 04/14 , OFF abx Hyperglycemia - ISS , close f/up on steroids Lines : periph (Central Line Necessity Reviewed) Fonseca: 04/14 OG: Nutrition: po Analgesia: Anxiety/ delirium VTE Prophylaxis: urszula 40 Stress Ulcer Prophylaxis: po Plans in collaboration with bedside consultants and IM MDs. Discussed with RN to reach out if any questions or concerns A total of 35 minutes of critical care time was devoted to this patient today, required to treat and/or prevent further deterioration of critical care condition ( as above ) . BENEDICT ZAYAS MD Apr 16, 2021 12:12
[2021-04-16 14:45] VITALS: BP 125/62
[2021-04-16 22:43] VITALS: BP 137/65
[2021-04-17] MEDS: RT-ALBUTEROL HFA 8.5 GM INHALER IH SCH ×6 (02:55→21:57)
[2021-04-17 02:56] VITALS: BP 151/75
[2021-04-17 05:10] LABS: BASOPHILS % (AUTO) 0 % (0-10); EOSINOPHILS # (AUTO) 0.2 10^3/uL (0.0-0.3); EOSINOPHILS % (AUTO) 3 % (0-10); HEMATOCRIT 33 % (35-52); HEMOGLOBIN 11.3 g/dL (11.5-16.0); LYMPHOCYTES # (AUTO) 0.4 10^3/uL (1.0-4.0); LYMPHOCYTES % (AUTO) 6 % (12-44); MEAN CORPUSCULAR HEMOGLOBIN 30 pg (25-34); MEAN CORPUSCULAR HGB CONC 34 g/dL (32-36); MEAN CORPUSCULAR VOLUME 90 fL (80-99); MEAN PLATELET VOLUME 11.4 fL (9.0-12.2); MONOCYTES # (AUTO) 0.1 10^3/uL (0.0-1.0); MONOCYTES % (AUTO) 2 % (0-12); NEUTROPHILS # (AUTO) 6.6 10^3/uL (1.8-7.8); NEUTROPHILS % (AUTO) 89 % (42-75); PLATELET COUNT 126 10^3/uL (130-400); WHITE BLOOD COUNT 7.4 10^3/uL (4.3-11.0)
[2021-04-17 05:24] LABS: POTASSIUM 3.9 MMOL/L (3.6-5.0)
[2021-04-17 05:25] LABS: CALCIUM 8.2 MG/DL (8.5-10.1)
[2021-04-17] MEDS: KCL 20 MEQ TAB (K-DUR) PO SCH (05:29)
[2021-04-17] MEDS: POTASSIUM CL 10MEQ/50ML IVPB 50 ML IV SCH (05:29)
[2021-04-17 05:30] LABS: CREATININE SERUM 0.72 MG/DL (0.60-1.30)
[2021-04-17] MEDS: inSUlin ASPART (NovoLOG) 1 UNIT/0.01 ML (CHARGE PER UNIT) SC SCH ×4 (05:30→21:21)
[2021-04-17 05:32] LABS: MAGNESIUM 1.8 MG/DL (1.6-2.4)
[2021-04-17] MEDS: MAGNESIUM 1 GM/100 ML IVPB 100 ML IV SCH (05:41)
[2021-04-17] MEDS: DOCUSATE SODIUM 100 MG (COLACE) CAP PO SCH ×2 (05:44→21:20)
[2021-04-17] MEDS: SENNOSIDES 8.6 MG (SENOKOT) TAB PO SCH ×2 (05:44→21:20)
--- NOTE | 2021-04-17 05:58 | Progress Note - Hospitalist ---
Subjective HPI/CC On Admission Date Seen by Provider: Apr 17, 2021 Time Seen by Provider: 11:00 CC: Acute hypoxic respiratory failure due to Covid-19 pneumonia from [place], [place] HPI: This is a female patient who was flown in from [place], [place] due to acute hypoxic respiratory failure due to Covid-19 pneumonia. Details are minimal considering she is in mild respiratory distress. She is prone, she is on Vapotherm and we talked briefly. She wants to be a full code, full intubation if that should come to be required. I will review the records and I did check her meds and labs and acute orders from Dr. Deng. Subjective/Events-last exam Pt having more tachypnea She is a DNI Checked meds and labs Denies any pain Sleeps most of the time Overall prognosis is guarded Labs stable We will try to call sister today or tomorrow Review of Systems General: Fatigue, Malaise Pulmonary: Dyspnea Objective Exam Vital Signs Vital Signs Date Time Temp Pulse Resp B/P (MAP) Pulse Ox O2 Delivery O2 Flow Rate FiO2 04/18/21 04:00 85 29 157/74 89 NIV Bilevel 85.00 04/17/21 16:38 36.4 04/17/21 16:00 85 Capillary Refill : Less Than 3 Seconds General Appearance: No Apparent Distress, WD/WN, Anxious, Chronically ill Respiratory: Accessory Muscle Use, Decreased Breath Sounds Cardiovascular: Regular Rate, Rhythm Neurologic/Psychiatric: Alert, Other (Sleepy) Results/Procedures Lab Laboratory Tests 04/18/21 04:19 Patient resulted labs reviewed. Assessment/Plan Assessment and Plan Assess & Plan/Chief Complaint Assessment: Acute hypoxic respiratory failure COVID-19 pneumonia Hypothyroidism Bacterial pneumonia Advanced age DO NOT INTUBATE Plan: eICU management appreciated Vapotherm Prone Supportive care High risk for intubation 04/15/2021: Patient does not wish to be intubated Supportive care High risk for decline 04/16/2021: No major changes Continue alternating Vapotherm and BiPAP High risk for decompensation 04/17/2021: Prognosis guarded Reviewed meds Diagnosis/Problems Diagnosis/Problems (1) Acute respiratory failure due to COVID-19 JUVENCIO CAM DO Apr 17, 2021 05:58
[2021-04-17] MEDS: dexAMETHasone 6 MG TAB (DECADRON) PO SCH (06:44)
[2021-04-17 07:14] VITALS: BP 144/76
[2021-04-17] MEDS: ACYCLOVIR 400 MG TABLET (ZOVIRAX) PO SCH ×2 (08:42→21:20)
[2021-04-17] MEDS: ENOXAPARIN 40 MG/0.4 ML (LOVENOX) SYR SC SCH (08:43)
--- NOTE | 2021-04-17 09:34 | Tele-ICU Progress Note ---
Subjective Date Seen by a Provider: Apr 17, 2021 Time Seen by a Provider: 09:34 Sepsis Event Evaluation Height, Weight, BMI Height: '" Weight: lbs. oz. kg; 26.21 BMI Method: Exam Exam Patient acknowledged, consented, and participated in this virtual visit which was conducted using real time audio/video Vital Signs Date Time Temp Pulse Resp B/P (MAP) Pulse Ox O2 Delivery O2 Flow Rate FiO2 04/17/21 07:45 37.1 04/17/21 07:14 87 35 91 70.00 04/17/21 07:00 107 04/17/21 06:47 NIV Bilevel 85.00 04/17/21 06:00 76 13 124/55 94 NIV Bilevel 80.00 04/17/21 05:00 80 25 146/67 96 NIV Bilevel 80.00 04/17/21 04:00 82 26 147/78 92 NIV Bilevel 80.00 04/17/21 03:48 NIV Bilevel 80.00 04/17/21 03:46 NIV Bilevel 90.00 04/17/21 03:45 94 NIV Bilevel 100 04/17/21 03:35 37.2 NIV Bilevel 100.00 04/17/21 03:00 79 25 152/76 94 NIV Bilevel 75.00 04/17/21 02:56 73 35 93 70.00 04/17/21 02:09 NIV Bilevel 75.00 04/17/21 02:00 71 37 151/75 94 NIV Bilevel 70.00 04/17/21 01:59 87 NIV Bilevel 70.00 04/17/21 01:00 71 32 142/77 91 NIV Bilevel 55.00 04/17/21 00:29 74 04/17/21 00:00 72 22 130/65 91 NIV Bilevel 55.00 04/16/21 23:40 92 NIV Bilevel 55 04/16/21 23:38 37.1 78 23 92 NIV Bilevel 55.00 04/16/21 23:00 75 19 149/73 92 NIV Bilevel 55.00 04/16/21 22:43 75 23 93 55.00 04/16/21 22:00 73 30 137/65 92 NIV Bilevel 55.00 04/16/21 21:00 77 25 136/67 98 NIV Bilevel 55.00 04/16/21 20:00 71 29 127/66 91 NIV Bilevel 55.00 04/16/21 19:30 NIV Bilevel 55.00 04/16/21 19:30 96 NIV Bilevel 55 04/16/21 19:00 86 04/16/21 19:00 36.7 82 27 132/64 89 Vapotherm 40.00 100.00 04/16/21 18:40 91 Vapotherm 40.00 100 04/16/21 18:00 77 139/77 89 04/16/21 17:38 Vapotherm 40.00 100.00 04/16/21 17:10 90 Vapotherm 40.00 80.00 04/16/21 17:07 74 92 04/16/21 17:00 69 133/72 91 04/16/21 16:00 91 NIV Bilevel 60 04/16/21 16:00 36.6 04/16/21 16:00 73 126/63 92 04/16/21 15:21 90 NIV Bilevel 60.00 04/16/21 15:07 73 88 04/16/21 15:00 74 123/64 88 04/16/21 14:45 82 18 92 50.00 04/16/21 14:42 91 NIV Bilevel 50.00 04/16/21 14:41 91 NIV Bilevel 55.00 04/16/21 14:07 68 27 94 04/16/21 13:51 94 NIV Bilevel 65.00 04/16/21 13:49 NIV Bilevel 75.00 04/16/21 13:45 97 NIV Bilevel 100.00 04/16/21 13:40 85 NIV Bilevel 45.00 04/16/21 13:00 70 04/16/21 12:00 87 15 137/59 92 Vapotherm 40.00 70.00 04/16/21 12:00 93 Vapotherm 100.00 70 04/16/21 11:43 36.7 04/16/21 11:27 92 Vapotherm 40.00 70.00 04/16/21 11:27 95 Vapotherm 40.00 80.00 04/16/21 11:20 94 Vapotherm 40.00 90.00 04/16/21 11:00 87 15 137/59 92 Vapotherm 40.00 100.00 04/16/21 10:42 90 Vapotherm 40.00 100 04/16/21 10:00 94 148/72 84 Vapotherm 40.00 100.00 I & O 04/17/21 06:59 Intake Total 1370 ml Output Total 795 ml Balance 575 ml Height & Weight Height: '" Weight: lbs. oz. kg; 26.21 BMI Method: General Appearance: No Apparent Distress, WD/WN, Anxious, Chronically ill Neck: Full Range of Motion, Normal Inspection, Non Tender Respiratory: No Accessory Muscle Use, No Respiratory Distress, Decreased Breath Sounds Cardiovascular: Regular Rate, Rhythm Capillary Refill: Less Than 3 Seconds Extremity: Normal Capillary Refill, Normal Inspection, Normal Range of Motion, Non Tender, No Calf Tenderness, No Pedal Edema Neurologic/Psychiatric: Alert, Oriented x3, No Motor/Sensory Deficits, Normal Mood/Affect Results Lab Laboratory Tests 04/16/21 05:14 04/17/21 04:46 Assessment/Plan Assessment/Plan (Tele-ICU Physician , Progress Note ) Available chart/ vitals / labs / Images reviewed Video assessment done using teleICU camera, rest of exam as per RN Discussed with RN , EXAM PER RN FEBRILE FiO2 - I/O = even Drips: ns 50 Pressors: , hemodynamically stable Consultants: Hospital course: (04/14) 80 y/o female admitted for COVID+, transfer from other facility - , VT 20L 70% 04/15-- VT 50L 100% , 04/16 - bipap 13/8 65% at night , VT 70L 100% A/P AHRF / ARDS due to severe COVID19 ( CTA neg for pe 04/13 - in other facility , reportedly -bbipap 13/8 65% at night , VT 70L 100% DID NOT TOLERATED WELL TODAY -prone position if able - on SIDE - conservative fluid strategy (aim for even or negative fluid balance EVAG-Wowivbvkqhs-6/COVID-19 PNA ( Symptom onset unknown now DX unvaccinted -Dexamethasone -actemrta 04/15 ( acyclovir 30 d ) -Hypercoagulable state -> lovenox ppx dose , CTA neg for pe 04/13 - in other facility , report reviewed Monitor for superimposed bact PNA -neg PCT 04/14 , OFF abx WILL REPEAT CXR - ? ABX Hyperglycemia - ISS , close f/up on steroids Lines : periph (Central Line Necessity Reviewed) Fonseca: 04/14 OG: Nutrition: po Analgesia: Anxiety/ delirium VTE Prophylaxis: urszula 40 Stress Ulcer Prophylaxis: po Plans in collaboration with bedside consultants and IM MDs. Discussed with RN to reach out if any questions or concerns A total of 35 minutes of critical care time was devoted to this patient today, required to treat and/or prevent further deterioration of critical care condition ( as above ) . BENEDICT ZAYAS MD Apr 17, 2021 09:34
[2021-04-17 10:19] VITALS: BP 129/63
--- NOTE | 2021-04-17 10:38 | Diagnostic Imaging Report ---
INDICATION: Hypoxia. Patient is COVID-19 positive. TIME OF EXAM: 10:05 a.m. COMPARISON: No prior studies are available for comparison. FINDINGS: The heart size is normal. There are extensive infiltrates in the perihilar and basilar regions bilaterally consistent with pneumonia. No effusion or pneumothorax is identified. IMPRESSION: Extensive bilateral pulmonary infiltrates consistent with pneumonia. Dictated by: Dictated on workstation # [id number]
--- NOTE | 2021-04-17 11:21 | Occ Therapy Progress Note ---
Therapy Progress Note Pt sidelying in bed at OT arrival. Sleeping and on Bi-pap, O2: 89-90%. Easy to rouse but having difficulty keeping eyes open. OT to hold this date due to lethargy and poor tolerance maintaining oxygen at rest. RN notified. OT to try again 04/18/21 if medically appropriate. Najma Gonzalez OT Apr 17, 2021 11:21
--- NOTE | 2021-04-17 13:09 | Physical Therapy Progress Note ---
Therapy Progress Note Nurse requested hold today as patient is very groggy with significant difficulty to awaken. Patient O2 sats staying around 90% at rest on BiPap. Will attempt treatment again tomorrow and progress per patient tolerance. SUDHAKAR ROCHA PT Apr 17, 2021 13:09
[2021-04-17 14:34] VITALS: BP 133/67
[2021-04-17] MEDS: NS IV 1000 ML 1,000 ML IV SCH (16:38)
[2021-04-18] MEDS: RT-ALBUTEROL HFA 8.5 GM INHALER IH SCH ×6 (02:26→21:45)
[2021-04-18 04:39] LABS: BASOPHILS % (AUTO) 0 % (0-10)
[2021-04-18 04:40] LABS: EOSINOPHILS # (AUTO) 0.2 10^3/uL (0.0-0.3); EOSINOPHILS % (AUTO) 2 % (0-10); HEMATOCRIT 36 % (35-52); LYMPHOCYTES # (AUTO) 0.6 10^3/uL (1.0-4.0); LYMPHOCYTES % (AUTO) 7 % (12-44); MEAN CORPUSCULAR HEMOGLOBIN 30 pg (25-34); MEAN CORPUSCULAR HGB CONC 34 g/dL (32-36); MEAN CORPUSCULAR VOLUME 89 fL (80-99); MEAN PLATELET VOLUME 11.3 fL (9.0-12.2); MONOCYTES # (AUTO) 0.3 10^3/uL (0.0-1.0); MONOCYTES % (AUTO) 3 % (0-12); NEUTROPHILS # (AUTO) 7.4 10^3/uL (1.8-7.8); NEUTROPHILS % (AUTO) 86 % (42-75); PLATELET COUNT 81 10^3/uL (130-400); WHITE BLOOD COUNT 8.6 10^3/uL (4.3-11.0)
[2021-04-18 04:54] LABS: POTASSIUM 3.6 MMOL/L (3.6-5.0)
[2021-04-18 04:55] LABS: CALCIUM 8.3 MG/DL (8.5-10.1)
[2021-04-18 05:00] LABS: CREATININE SERUM 0.67 MG/DL (0.60-1.30); PHOSPHORUS 2.9 MG/DL (2.3-4.7)
[2021-04-18 05:02] LABS: MAGNESIUM 1.8 MG/DL (1.6-2.4)
[2021-04-18] MEDS: inSUlin ASPART (NovoLOG) 1 UNIT/0.01 ML (CHARGE PER UNIT) SC SCH ×4 (05:02→21:28)
[2021-04-18] MEDS: POTASSIUM CL 10MEQ/50ML IVPB 50 ML IV SCH (05:02)
[2021-04-18] MEDS: MAGNESIUM 1 GM/100 ML IVPB 100 ML IV SCH (05:02)
[2021-04-18] MEDS: KCL 20 MEQ TAB (K-DUR) PO SCH (05:02)
[2021-04-18] MEDS: dexAMETHasone 6 MG TAB (DECADRON) PO SCH (05:52)
--- NOTE | 2021-04-18 05:54 | Progress Note - Hospitalist ---
Subjective HPI/CC On Admission Date Seen by Provider: Apr 18, 2021 Time Seen by Provider: 10:00 CC: Acute hypoxic respiratory failure due to Covid-19 pneumonia from [place], [place] HPI: This is a female patient who was flown in from [place], [place] due to acute hypoxic respiratory failure due to Covid-19 pneumonia. Details are minimal considering she is in mild respiratory distress. She is prone, she is on Vapotherm and we talked briefly. She wants to be a full code, full intubation if that should come to be required. I will review the records and I did check her meds and labs and acute orders from Dr. Deng. Subjective/Events-last exam Pt remains on biPAP 72% oxygen Pt appears to be doing okay and stable but definitely fatigued Unclear if she will be able to recover Review of Systems General: Fatigue, Malaise Pulmonary: Dyspnea, Cough Objective Exam Vital Signs Vital Signs Date Time Temp Pulse Resp B/P (MAP) Pulse Ox O2 Delivery O2 Flow Rate FiO2 04/19/21 05:00 75 28 151/68 91 NIV Bilevel 85.00 04/18/21 20:00 90 04/18/21 19:00 37.2 Capillary Refill : Less Than 3 Seconds General Appearance: Anxious, Chronically ill, Mild Distress, Other (Thin and fatigued) Respiratory: No Respiratory Distress, Accessory Muscle Use, Decreased Breath Sounds Cardiovascular: Regular Rate, Rhythm Neurologic/Psychiatric: Alert, Oriented x3, Depressed Affect Results/Procedures Lab Laboratory Tests 04/18/21 15:30 04/19/21 04:40 Patient resulted labs reviewed. Assessment/Plan Assessment and Plan Assess & Plan/Chief Complaint Assessment: Acute hypoxic respiratory failure COVID-19 pneumonia Hypothyroidism Bacterial pneumonia Advanced age DO NOT INTUBATE Plan: eICU management appreciated Vapotherm Prone Supportive care High risk for intubation 04/15/2021: Patient does not wish to be intubated Supportive care High risk for decline 04/16/2021: No major changes Continue alternating Vapotherm and BiPAP High risk for decompensation 04/17/2021: Prognosis guarded Reviewed meds 04/18/2021: BiPAP dependent High risk for decompensation Diagnosis/Problems Diagnosis/Problems (1) Acute respiratory failure due to COVID-19 JUVENCIO ACM DO Apr 18, 2021 05:54
[2021-04-18] MEDS: ACYCLOVIR 400 MG TABLET (ZOVIRAX) PO SCH ×2 (08:14→21:50)
[2021-04-18] MEDS: DOCUSATE SODIUM 100 MG (COLACE) CAP PO SCH ×2 (08:14→21:50)
[2021-04-18] MEDS: SENNOSIDES 8.6 MG (SENOKOT) TAB PO SCH ×2 (08:14→21:50)
[2021-04-18] MEDS: ENOXAPARIN 40 MG/0.4 ML (LOVENOX) SYR SC SCH (08:15)
--- NOTE | 2021-04-18 08:59 | Occupational Ther Daily Note ---
OT Current Status-Daily Note Subjective Encouragement to participate, willing to do exercises at bed level. Appearance Left supine in bed, RN in room at OT departure. Mental Status/Objective Attachments: Fonseca Catheter, IV, Oxygen, Telemetry ADL-Treatment Therapy Code Descriptions/Definitions Functional [place] Measure: 0=Not Assessed/NA 4=Minimal Assistance 1=Total Assistance 5=Supervision or Setup 2=Maximal Assistance 6=Modified [place] 3=Moderate Assistance 7=Complete IndependenceSCALE: Activities may be completed with or without assistive devices. 9-Bmalqauvtx-hmjneqz completes the activity by him/herself with no assistance from a helper. 5-Set-up or Clean-up Assistance-helper sets up or cleans up; patient completes activity. [place] assists only prior to or following the activity. 4-Supervision or Touching Assistance-helper provides verbal cues and/or touching/steadying and/or contact guard assistance as patient completes activity. Assistance may be provided throughout the activity or intermittently. 3-Partial/Moderate Assistance-helper does LESS THAN HALF the effort. Aurora lifts, holds or supports trunk or limbs, but provides less than half the effort. 2-Substantial/Maximal Assistance-helper does MORE THAN HALF the effort. [place] lifts or holds trunk or limbs and provides more than half the effort. 7-Yjkarbday-xhcplt does ALL the effort. Patient does none of the effort to complete the activity. Or, the assistance of 2 or more helpers is required for the patient to complete the activity. If activity was not attempted, code reason: 7-Patient Refused. 9-Not Applicable-not attempted and the patient did not perform the activity before the current illness, exacerbation or injury. 10-Not Attempted due to Environmental Limitations-(lack of equipment, weather restraints, etc.). 88-Not Attempted due to Medical Conditions or Safety Concerns. Other Treatment Pt cockeyed in bed at OT arrival. Assist from RN to reposition in bed. Pt on Bipap, 88-91%. Post tactile cues, pt able to complete AROM exercises in all planes, 1x8. Rest break needed after each movement. RN in towards end of session and requests to give meds to patient. Pt desat to 70% with Removal of bipap for only a few seconds to administer pill. Pt begins to become anxious and requires cues on relaxation and breathing techniques. With cues and return of bipap, pt begins to recover. Education OT Patient Education: Correct positioning, Exercise program, Modified ADL techniques, Purpose of tx/functional activities, Safety issues, Transfer techniques Teaching Recipient: Patient Teaching Methods: Demonstration, Discussion Response to Teaching: Return Demonstration, Reinforcement Needed OT Pantry Goods Maker Goals Nursing Home Goals Time Frame: May 09, 2021 Eating (QC): 6 Oral Hygiene (QC): 5 Toileting Hygiene (QC): 4 Shower/Bathe Self (QC): 4 Upper Body Dressing (QC): 5 Lower Body Dressing (QC): 4 On/Off Footwear (QC): 4 Additional Goals: 1-Demonstrate ADL Tasks, 2-Verbalize Understanding, 3- ImproveStrength/Nicola 1=Demonstrate adherence to instructed precautions during ADL tasks. 2=Patient will verbalize/demonstrate understanding of assistive de vices/modifications for ADL. 3=Patient will improve strength/tolerance for activity to enable patient to perform ADL's. OT Education/Plan Problem List/Assessment Assessment: Decreased Activ Tolerance, Decreased Safety Aware, Decreased UE Strength, Impaired Bed Mobility, Impaired Funct Balance, Impaired I ADL's, Impaired Self-Care Skills Pt would benefit from skilled OT services in order to increase BUE strength and activity tolerance, increase independence and safety with ADLs, and improve pulmonary function for safe return home. Discharge Recommendations Plan/Recommendations: Continue POC Therapy Discharge Recommendati: Post Acute OT Treatment Plan/Plan of Care Treatment,Training & Education: Yes Patient would benefit from OT for education, treatment and training to promote independence in ADL's, mobility, safety and/or upper extremity function for ADL's. Plan of Care: ADL Retraining, Functional Mobility, UE Funct Exercise/Act Treatment Duration: May 09, 2021 Frequency: 3 times per week (3-5 times per week) Estimated Hrs Per Day: .25 hour per day Agreement: Yes Rehab Potential: Good Time/GCodes Start Time: 08:08 Stop Time: 08:21 Total Time Billed (hr/min): 13 Billed Treatment Time 1 visit EX Najma Gonzalez OT Apr 18, 2021 08:59
[2021-04-18] MEDS ORDERED: KCL 20 MEQ TAB (K-DUR) PO NR (09:00)
--- NOTE | 2021-04-18 10:16 | Physical Therapy Daily Note ---
PT Daily Note-Current Subjective Patient on BiPap currently so speech is difficult, but reports no pain at this time. Mental Status Attachments: Oxygen, Fonseca Catheter, IV Transfers SCALE: Activities may be completed with or without assistive devices. 3-Ewpfmfqeuj-gxxasga completes the activity by him/herself with no assistance from a helper. 5-Set-up or Clean-up Assistance-helper sets up or cleans up; patient completes activity. Champion assists only prior to or following the activity. 4-Supervision or Touching Assistance-helper provides verbal cues and/or touching/steadying and/or contact guard assistance as patient completes activity. Assistance may be provided throughout the activity or intermittently. 3-Partial/Moderate Assistance-helper does LESS THAN HALF the effort. Champion lifts, holds or supports trunk or limbs, but provides less than half the effort. 2-Substantial/Maximal Assistance-helper does MORE THAN HALF the effort. Champion lifts or holds trunk or limbs and provides more than half the effort. 1-Aosridnpb-yqesih does ALL the effort. Patient does none of the effort to complete the activity. Or, the assistance of 2 or more helpers is required for the patient to complete the activity. If activity was not attempted, code reason: 7-Patient Refused. 9-Not Applicable-not attempted and the patient did not perform the activity before the current illness, exacerbation or injury. 10-Not Attempted due to Environmental Limitations-(lack of equipment, weather restraints, etc.). 88-Not Attempted due to Medical Conditions or Safety Concerns. Roll Left & Right (QC): 3 Sit to Lying (QC): 3 Lying to Sitting/Side of Bed(Q: 3 Gait Training Does the Patient Walk?: No and Walking Goal IS indicated Exercises Supine Ex: Ankle pumps, Quad Set, Glut sets, Heel Slides, Short Arc Quads, Straight leg raise, Hip abd/add Treatments Patient performed static sitting balance with focus on maintaining O2 sats as high as possible. Assessment Current Status: Fair Progress Patient lying supine in bed upon PT arrival, agreeable to treatment. Patient performs LE therapeutic exercise as listed above. Patient given frequent verbal cues for breathing throughout the treatment session. Patient performs all observed bed mobility and transfers with min A. Patient able to tolerate sitting at edge of bed ~ 10 minutes with CGA. O2 sats initially drop to 85%, however quickly increase to 88-89%, where they stay until the patient fatigues and requests to return to bed. Patient left sidelyijng in bed post treatment with all needs met, nursing notified,call light in hand. PT Short Term Goals Short Term Goals Time Frame: Apr 22, 2021 Roll Left & Right: 5 Sit to lyin Lying to sitting on side of be: 5 Sit to stand: 5 Chair/opr-aj-qjsly transfer: 5 Toilet transfer: 5 Walk 10 feet: 4 Walk 50 feet with two turns: 4 Walk 150 feet: 4 PT Lead Teller Goals Lead Teller Goals PT Lead Teller Goals Time Frame: May 02, 2021 Roll Left & Right (QC): 6 Sit to Lying (QC): 6 Lying-Sitting on Side/Bed(QC): 6 Sit to Stand (QC): 6 Chair/Bet-pd-Lnwsr Xfer(QC): 6 Toilet Transfer (QC): 6 Does the Patient Walk: Yes Walk 10 feet (QC): 5 Walk 50ft with 2 Turns (QC): 5 Walk 150 ft (QC): 5 1 Step (curb) (QC): 4 4 Steps (QC): 4 PT Plan Treatment/Plan Treatment Plan: Continue Plan of Care Treatment Plan: Bed Mobility, Education, Functional Activity Nicola, Functional Strength, Group Therapy, Gait, Safety, Therapeutic Exercise, Transfers Treatment Duration: May 31, 2021 Frequency: 6 times per week Estimated Hrs Per Day: .25 hour per day Safety Risks/Education Patient Education: Transfer Techniques, Safety Issues Teaching Recipient: Patient Teaching Methods: Demonstration, Discussion Response to Teaching: Verbalize Understanding, Return Demonstration Time/GCodes Time In: 856 Time Out: 936 Total Billed Treatment Time: 40 Total Billed Treatment Visit, Ex, FA x 2 SUDHAKAR ROCHA PT Apr 18, 2021 10:16
[2021-04-18] MEDS ORDERED: IOHEXOL 350 MG/ML 100 ML (OMNIPAQUE 350) VIAL IV ONE (11:15)
[2021-04-18] MEDS ORDERED: HOLD METFORMIN - RECEIVED CONTRAST 20 ML VIAL IV SCH (11:15)
[2021-04-18] MEDS: DOXYCYCLINE INJECTION 100 MG in NS (IVPB) 100 ML IV SCH ×2 (11:48→21:50)
[2021-04-18] MEDS: NS IV 1000 ML 1,000 ML IV SCH (11:48)
--- NOTE | 2021-04-18 12:04 | Tele-ICU Progress Note ---
Subjective Date Seen by a Provider: Apr 18, 2021 Time Seen by a Provider: 11:02 Sepsis Event Evaluation Height, Weight, BMI Height: '" Weight: lbs. oz. kg; 26.21 BMI Method: Exam Exam Patient acknowledged, consented, and participated in this virtual visit which was conducted using real time audio/video Vital Signs Date Time Temp Pulse Resp B/P (MAP) Pulse Ox O2 Delivery O2 Flow Rate FiO2 04/18/21 11:00 81 27 140/76 90 NIV Bilevel 85.00 04/18/21 10:00 82 39 145/71 90 NIV Bilevel 85.00 04/18/21 09:41 89 24 90 90.00 04/18/21 09:00 85 28 153/83 92 NIV Bilevel 85.00 04/18/21 08:40 92 NIV Bilevel 85 04/18/21 08:00 78 32 138/67 91 NIV Bilevel 85.00 04/18/21 07:02 79 24 92 90.00 04/18/21 07:00 77 36 134/69 89 NIV Bilevel 85.00 04/18/21 07:00 80 04/18/21 06:00 88 22 146/71 95 NIV Bilevel 85.00 04/18/21 05:00 80 36 132/65 91 NIV Bilevel 85.00 04/18/21 04:00 85 29 157/74 89 NIV Bilevel 85.00 04/18/21 04:00 91 NIV Bilevel 85 04/18/21 03:00 81 28 151/79 94 NIV Bilevel 85.00 04/18/21 02:26 81 18 92 85.00 04/18/21 02:00 74 25 139/78 91 NIV Bilevel 85.00 04/18/21 01:00 71 04/18/21 01:00 76 24 141/73 90 NIV Bilevel 85.00 04/18/21 00:00 91 NIV Bilevel 85 04/18/21 00:00 75 23 167/79 92 NIV Bilevel 85.00 04/17/21 23:00 67 13 145/78 94 NIV Bilevel 85.00 04/17/21 22:00 77 24 163/89 95 NIV Bilevel 85.00 04/17/21 21:57 70 29 92 80.00 04/17/21 21:00 69 24 144/79 94 NIV Bilevel 85.00 04/17/21 20:00 75 20 141/70 94 NIV Bilevel 85.00 04/17/21 20:00 91 NIV Bilevel 85 04/17/21 19:00 64 31 136/70 93 NIV Bilevel 85.00 04/17/21 19:00 67 04/17/21 18:21 78 24 95 80.00 04/17/21 17:00 66 34 137/67 92 NIV Bilevel 85.00 04/17/21 16:38 36.4 04/17/21 16:00 96 NIV Bilevel 85 04/17/21 16:00 67 32 131/65 91 NIV Bilevel 85.00 04/17/21 15:00 87 20 157/70 96 NIV Bilevel 85.00 04/17/21 14:34 67 37 94 85.00 04/17/21 14:00 69 29 133/67 95 NIV Bilevel 85.00 04/17/21 13:00 70 21 139/69 95 NIV Bilevel 85.00 04/17/21 13:00 93 NIV Bilevel 85 04/17/21 13:00 72 I & O 04/18/21 07:00 Intake Total 90 ml Output Total 775 ml Balance -685 ml Height & Weight Height: '" Weight: lbs. oz. kg; 26.21 BMI Method: General Appearance: No Apparent Distress, WD/WN, Anxious, Chronically ill Neck: Full Range of Motion, Normal Inspection, Non Tender Respiratory: Accessory Muscle Use, Decreased Breath Sounds Cardiovascular: Regular Rate, Rhythm Capillary Refill: Less Than 3 Seconds Extremity: Normal Capillary Refill, Normal Inspection, Normal Range of Motion, Non Tender, No Calf Tenderness, No Pedal Edema Neurologic/Psychiatric: Alert, Other (Sleepy) Results Lab Laboratory Tests 04/17/21 04:46 04/18/21 04:19 Assessment/Plan Assessment/Plan (Tele-ICU Physician , Progress Note ) Available chart/ vitals / labs / Images reviewed Video assessment done using teleICU camera, rest of exam as per RN Discussed with RN , EXAM PER RN AFEBRILE FiO2 - I/O = even Drips: ns 50 Pressors: , hemodynamically stable Consultants: Hospital course: (04/14) 80 y/o female admitted for COVID+, transfer from other facility - , VT 20L 70% 04/15-- VT 50L 100% , 04/16 - bipap 13/12 65% at night , VT 70L 100% A/P AHRF / ARDS due to severe COVID19 ( CTA neg for pe 04/13 - in other facility , reportedly -bbipap 13/12 65% at night , VT 70L 100% DID NOT TOLERATED WELL TODAY -prone position if able - on SIDE - conservative fluid strategy (aim for even or negative fluid balance AZZO-Mclteqcmhpo-5/COVID-19 PNA ( Symptom onset unknown now DX unvaccinted -Dexamethasone -actemrta 04/15 ( acyclovir 30 d ) -Hypercoagulable state -> lovenox ppx dose , CTA neg for pe 04/13 - in other facility , report reviewed Monitor for superimposed bact PNA - doxy1 Thrombocytopenia 04/18 - check HIPA , STOP LOVENOX - WITH DDIMER.20 AND DROPPING PLT( ?CONSUMPTION ) WILL REPEAT CT CHESTY - IF + WILL NEED AGATROBAN Hyperglycemia - ISS , close f/up on steroids Lines : periph (Central Line Necessity Reviewed) Fonseca: 04/14 OG: Nutrition: po Analgesia: Anxiety/ delirium VTE Prophylaxis: urszula 40 Stress Ulcer Prophylaxis: po Plans in collaboration with bedside consultants and IM MDs. Discussed with RN to reach out if any questions or concerns A total of 35 minutes of critical care time was devoted to this patient today, required to treat and/or prevent further deterioration of critical care condition ( as above ) . BENEDICT ZAYAS MD Apr 18, 2021 12:04
--- NOTE | 2021-04-18 12:08 | Tele-ICU Progress Note ---
Subjective Date Seen by a Provider: Apr 18, 2021 Time Seen by a Provider: 10:17 Sepsis Event Evaluation Height, Weight, BMI Height: '" Weight: lbs. oz. kg; 26.21 BMI Method: Exam Exam Patient acknowledged, consented, and participated in this virtual visit which was conducted using real time audio/video Vital Signs Date Time Temp Pulse Resp B/P (MAP) Pulse Ox O2 Delivery O2 Flow Rate FiO2 04/18/21 11:00 81 27 140/76 90 NIV Bilevel 85.00 04/18/21 10:00 82 39 145/71 90 NIV Bilevel 85.00 04/18/21 09:41 89 24 90 90.00 04/18/21 09:00 85 28 153/83 92 NIV Bilevel 85.00 04/18/21 08:40 92 NIV Bilevel 85 04/18/21 08:00 78 32 138/67 91 NIV Bilevel 85.00 04/18/21 07:02 79 24 92 90.00 04/18/21 07:00 77 36 134/69 89 NIV Bilevel 85.00 04/18/21 07:00 80 04/18/21 06:00 88 22 146/71 95 NIV Bilevel 85.00 04/18/21 05:00 80 36 132/65 91 NIV Bilevel 85.00 04/18/21 04:00 85 29 157/74 89 NIV Bilevel 85.00 04/18/21 04:00 91 NIV Bilevel 85 04/18/21 03:00 81 28 151/79 94 NIV Bilevel 85.00 04/18/21 02:26 81 18 92 85.00 04/18/21 02:00 74 25 139/78 91 NIV Bilevel 85.00 04/18/21 01:00 71 04/18/21 01:00 76 24 141/73 90 NIV Bilevel 85.00 04/18/21 00:00 91 NIV Bilevel 85 04/18/21 00:00 75 23 167/79 92 NIV Bilevel 85.00 04/17/21 23:00 67 13 145/78 94 NIV Bilevel 85.00 04/17/21 22:00 77 24 163/89 95 NIV Bilevel 85.00 04/17/21 21:57 70 29 92 80.00 04/17/21 21:00 69 24 144/79 94 NIV Bilevel 85.00 04/17/21 20:00 75 20 141/70 94 NIV Bilevel 85.00 04/17/21 20:00 91 NIV Bilevel 85 04/17/21 19:00 64 31 136/70 93 NIV Bilevel 85.00 04/17/21 19:00 67 04/17/21 18:21 78 24 95 80.00 04/17/21 17:00 66 34 137/67 92 NIV Bilevel 85.00 04/17/21 16:38 36.4 04/17/21 16:00 96 NIV Bilevel 85 04/17/21 16:00 67 32 131/65 91 NIV Bilevel 85.00 04/17/21 15:00 87 20 157/70 96 NIV Bilevel 85.00 04/17/21 14:34 67 37 94 85.00 04/17/21 14:00 69 29 133/67 95 NIV Bilevel 85.00 04/17/21 13:00 70 21 139/69 95 NIV Bilevel 85.00 04/17/21 13:00 93 NIV Bilevel 85 04/17/21 13:00 72 I & O 04/18/21 07:00 Intake Total 90 ml Output Total 775 ml Balance -685 ml Height & Weight Height: '" Weight: lbs. oz. kg; 26.21 BMI Method: General Appearance: No Apparent Distress, WD/WN, Anxious, Chronically ill Neck: Full Range of Motion, Normal Inspection, Non Tender Respiratory: Accessory Muscle Use, Decreased Breath Sounds Cardiovascular: Regular Rate, Rhythm Capillary Refill: Less Than 3 Seconds Extremity: Normal Capillary Refill, Normal Inspection, Normal Range of Motion, Non Tender, No Calf Tenderness, No Pedal Edema Neurologic/Psychiatric: Alert, Other (Sleepy) Results Lab Laboratory Tests 04/17/21 04:46 04/18/21 04:19 Assessment/Plan Assessment/Plan (Tele-ICU Physician , Progress Note ) Available chart/ vitals / labs / Images reviewed Video assessment done using teleICU camera, rest of exam as per RN Discussed with RN , EXAM PER RN Events overnight : Afebrile I/O = even Drips: PECEDEX Pressors: , hemodynamically stable Consultants: Hospital course: (04/14) 80 y/o female admitted for COVID+, transfer from other facility - , VT 20L 70% 04/15 changed to BIPAP 04/16 Bipap 15 / 100% _ precedex 0.4 04/17 - VT 35/80% prn bipap , precedex 0.4 +DVT 04/18 - VT 40L 100% , bipap 75%, : PECEDEX A/P AHRF / ARDS due to severe COVID19 ( CTA neg for pe 04/13 - in other facility , reportedly - did not see report personally - VT VT 40L 100% , bipap 75% prn , precedex 0.4 -prone position if able - conservative fluid strategy (aim for even or negative fluid balance _ PO intake 3L - monitor GBQV-Vpknygciwpz-5/COVID-19 PNA ( Symptom onset unknown now DX unvaccinted --Remdesivir ? --Dexamethasone - chanhged to 10 qd with wheezing 04/16 - DVT 04/17 - -> lovenox full dose LEFT extensive DVT - lovenox full dose 04/15 - NOT STABLE FOR CT CHEST - WILL ORDER ECHO TO ASSESS RIGHT SIDE OF HEART - MIGHT NEED IVC FILTER IF RIGHT HEART PRESSURE IS VERY ELEVATED Pneumomediastinum on ct 04/12 - not seen on cxr f/up Monitor for superimposed bact PNA - sputum cx YEAST - FLUCONASOLE 04/17 - worsening leukocytosi - 04/18 - nl PCT , OFF abx Hyperglycemia - ISS , close f/up on steroids Lines : periph Central Line Necessity Reviewed) Fonseca: 04/14 OG: Nutrition: po Analgesia: Anxiety/ delirium = precedex VTE Prophylaxis: urszula 40 Stress Ulcer Prophylaxis: po Plans in collaboration with bedside consultants and IM MDs. Discussed with RN to reach out if any questions or concerns A total of 35 minutes of critical care time was devoted to this patient today, required to treat and/or prevent further deterioration of critical care condition ( as above ) . BENEDICT ZAYAS MD Apr 18, 2021 12:08
--- NOTE | 2021-04-18 14:49 | Diagnostic Imaging Report ---
PROCEDURE: CT angiography of the chest with contrast. TECHNIQUE: Multiple contiguous axial images were obtained through the chest after uneventful bolus administration of intravenous contrast. 3D reconstructed CTA MIP acquisitions were also performed. Auto Exposure Controls were utilized during the CT exam to meet ALARA standards for radiation dose reduction. INDICATION: Hypoxia. Acute respiratory failure. COVID positive. COMPARISON: Chest radiograph performed on 04/17/2021. FINDINGS: This helical CT pulmonary angiogram is diagnostic to the subsegmental level branches of the pulmonary artery. There is a small burden of pulmonary emboli involving the right upper lobe and lingula. The heart and great vessels are unremarkable. There is no pericardial effusion. Prominent mediastinal lymph nodes are noted. Groundglass and consolidative opacities are seen throughout the lungs, greatest in the lungs bases. No pleural effusion or pneumothorax. No central or endobronchial obstructing lesion. Osseous structures appear normal. There is hepatic steatosis. IMPRESSION: 1. Small burden of pulmonary emboli involving the subsegmental pulmonary arteries of the right upper lobe and lingula. 2. Findings consistent with COVID pneumonia, greatest in the lung bases. 3. Hepatic steatosis. Findings were called to the ICU at 2:45 PM on 04/18/[address] Aaron Winchester. Report was faxed to [facility] by sallie at 2:48PM. Dictated by: Dictated on workstation # [id number]
[2021-04-18] MEDS: FONDAPARINUX 7.5 MG/0.6 ML SQ SCH (15:41)
[2021-04-18 15:46] LABS: HEMOGLOBIN 11.8 g/dL (11.5-16.0); MEAN PLATELET VOLUME 11.6 fL (9.0-12.2); WHITE BLOOD COUNT 11.9 10^3/uL (4.3-11.0)
[2021-04-18 16:00] LABS: INR 1.4 (0.8-1.4); PROTHROMBIN TIME PATIENT 17.9 SEC (12.2-14.7)
[2021-04-18 16:05] LABS: BILIRUBIN,TOTAL 0.6 MG/DL (0.1-1.0); CALCIUM 8.2 MG/DL (8.5-10.1); CREATININE SERUM 0.74 MG/DL (0.60-1.30); POTASSIUM 3.9 MMOL/L (3.6-5.0); TOTAL PROTEIN 5.9 GM/DL (6.4-8.2)
--- NOTE | 2021-04-18 16:12 | Diagnostic Imaging Report ---
PROCEDURE: US Venous Lower Ext Jimmie. TECHNIQUE: Multiple real-time grayscale images were obtained over the lower extremities in various projections, bilaterally. Additional duplex Doppler and color Doppler images were also obtained. INDICATION: Pulmonary emboli. Lower extremity edema. COMPARISON: None. FINDINGS: The bilateral common femoral vein, femoral vein, deep femoral vein, and popliteal vein are normal in appearance. These vessels show normal compressibility, color flow and doppler augmentation. The visualized deep calf veins demonstrate no distinct intraluminal thrombus. IMPRESSION: 1. No sonographic evidence of deep venous thrombosis in the bilateral lower extremities. Dictated by: Dictated on workstation # [id number]
[2021-04-19] MEDS: RT-ALBUTEROL HFA 8.5 GM INHALER IH SCH ×6 (02:14→22:11)
[2021-04-19 04:52] LABS: MEAN PLATELET VOLUME 11.7 fL (9.0-12.2); PLATELET COUNT 84 10^3/uL (130-400)
[2021-04-19 04:54] LABS: BASOPHILS % (AUTO) 0 % (0-10); EOSINOPHILS # (AUTO) 0.2 10^3/uL (0.0-0.3); EOSINOPHILS % (AUTO) 2 % (0-10); HEMATOCRIT 34 % (35-52); HEMOGLOBIN 11.5 g/dL (11.5-16.0); LYMPHOCYTES # (AUTO) 0.6 10^3/uL (1.0-4.0); LYMPHOCYTES % (AUTO) 5 % (12-44); MEAN CORPUSCULAR HEMOGLOBIN 30 pg (25-34); MEAN CORPUSCULAR HGB CONC 34 g/dL (32-36); MEAN CORPUSCULAR VOLUME 88 fL (80-99); MONOCYTES # (AUTO) 0.2 10^3/uL (0.0-1.0); MONOCYTES % (AUTO) 2 % (0-12); NEUTROPHILS % (AUTO) 89 % (42-75); WHITE BLOOD COUNT 11.2 10^3/uL (4.3-11.0)
[2021-04-19 05:05] LABS: INR 1.4 (0.8-1.4)
[2021-04-19 05:07] LABS: POTASSIUM 3.5 MMOL/L (3.6-5.0)
[2021-04-19 05:08] LABS: CALCIUM 8.3 MG/DL (8.5-10.1)
[2021-04-19 05:13] LABS: CREATININE SERUM 0.69 MG/DL (0.60-1.30)
[2021-04-19 05:15] LABS: MAGNESIUM 1.9 MG/DL (1.6-2.4)
[2021-04-19] MEDS: POTASSIUM CL 10MEQ/50ML IVPB 50 ML IV SCH (05:53)
[2021-04-19] MEDS: MAGNESIUM 1 GM/100 ML IVPB 100 ML IV SCH (05:54)
[2021-04-19] MEDS: inSUlin ASPART (NovoLOG) 1 UNIT/0.01 ML (CHARGE PER UNIT) SC SCH ×4 (05:54→21:34)
[2021-04-19] MEDS: dexAMETHasone 6 MG TAB (DECADRON) PO SCH (05:54)
[2021-04-19] MEDS: KCL 20 MEQ TAB (K-DUR) PO SCH (05:54)
[2021-04-19] MEDS ORDERED: KCL 20 MEQ TAB (K-DUR) PO ONE (06:00)
[2021-04-19] MEDS ORDERED: KCL 20 MEQ TAB (K-DUR) PO NR (08:00)
--- NOTE | 2021-04-19 08:15 | Progress Note - Hospitalist ---
Subjective HPI/CC On Admission Date Seen by Provider: Apr 19, 2021 Time Seen by Provider: 11:00 CC: Acute hypoxic respiratory failure due to Covid-19 pneumonia from [place], [place] HPI: This is a female patient who was flown in from [place], [place] due to acute hypoxic respiratory failure due to Covid-19 pneumonia. Details are minimal considering she is in mild respiratory distress. She is prone, she is on Vapotherm and we talked briefly. She wants to be a full code, full intubation if that should come to be required. I will review the records and I did check her meds and labs and acute orders from Dr. Deng. Subjective/Events-last exam Patient BiPAP dependent Precedex helps BiPAP is 90% with settings 15/5 Drinks Ensure and in 3 minutes 02 sat dropped to 70% Updated sister Received Actemra Arixtra subcutaneous Lovenox due to thrombocytopenia Prognosis guarded Review of Systems General: Fatigue, Malaise Pulmonary: Dyspnea, Cough Objective Exam Vital Signs Vital Signs Date Time Temp Pulse Resp B/P (MAP) Pulse Ox O2 Delivery O2 Flow Rate FiO2 04/20/21 02:16 83 23 93 90.00 04/20/21 01:31 90 04/20/21 01:00 152/75 NIV Bilevel 04/19/21 20:00 36.8 Capillary Refill : Less Than 3 Seconds General Appearance: Anxious, Chronically ill, Mild Distress, Thin, Other (Frail) Respiratory: Normal Breath Sounds, No Respiratory Distress, Accessory Muscle Use, Decreased Breath Sounds Cardiovascular: Regular Rate, Rhythm Neurologic/Psychiatric: Alert, Oriented x3 Results/Procedures Lab Laboratory Tests 04/20/21 04:50 Patient resulted labs reviewed. Assessment/Plan Assessment and Plan Assess & Plan/Chief Complaint Assessment: Acute hypoxic respiratory failure COVID-19 pneumonia Hypothyroidism Bacterial pneumonia Advanced age DO NOT INTUBATE Plan: eICU management appreciated Vapotherm Prone Supportive care High risk for intubation 04/15/2021: Patient does not wish to be intubated Supportive care High risk for decline 04/16/2021: No major changes Continue alternating Vapotherm and BiPAP High risk for decompensation 04/17/2021: Prognosis guarded Reviewed meds 04/18/2021: BiPAP dependent High risk for decompensation 04/19/2021: BiPAP dependent Prognosis guarded DO NOT INTUBATE Updated family Diagnosis/Problems Diagnosis/Problems (1) Acute respiratory failure due to COVID-19 JUVENCIO CAM DO Apr 19, 2021 08:15
--- NOTE | 2021-04-19 08:38 | Tele-ICU Progress Note ---
Progress Note video rounds completed 80 y/o female with Covid PNA On intermittent BIPAP ( n15/10, 90%) and vapotherm Still hypoxic with sats: 91% PE: no acute distress Pulse: 86 BP; 167/62 RR 24 PLAN: patient is DNR, DNI High risk for decompensation. Maximum non invasive therapy implemented Focused Exam Height, Weight, BMI Height: '" Weight: lbs. oz. kg; 26.21 BMI Method: Laboratory Tests 04/18/21 15:30 04/19/21 04:40 Labs Labs Laboratory Tests 04/18/21 10:43: Glucometer 118H 04/18/21 15:30: White Blood Count 11.9H, Red Blood Count 3.95, Hemoglobin 11.8, Hematocrit 35, Mean Corpuscular Volume 89, Mean Corpuscular Hemoglobin 30, Mean Corpuscular Hemoglobin Concent 33, Red Cell Distribution Width 13.6, Platelet Count 89L, Mean Platelet Volume 11.6, Percent Immature Platelet Fraction 6.5, Prothrombin Time 17.9H, INR Comment 1.4, Activated Partial Thromboplast Time 33, Sodium Level 137, Potassium Level 3.9, Chloride Level 105, Carbon Dioxide Level 17L, Anion Gap 15H, Blood Urea Nitrogen 16, Creatinine 0.74, Estimat Glomerular Filtration Rate 76, BUN/Creatinine Ratio 22, Glucose Level 114H, Calcium Level 8.2L, Corrected Calcium 9.0, Total Bilirubin 0.6, Aspartate Amino Transf (AST/SGOT) 48H, Alanine Aminotransferase (ALT/SGPT) 40, Alkaline Phosphatase 76, Total Protein 5.9L, Albumin 3.0L 04/18/21 16:18: Glucometer 111H 04/18/21 21:09: Glucometer 134H 04/19/21 04:40: White Blood Count 11.2H, Red Blood Count 3.81, Hemoglobin 11.5, Hematocrit 34L, Mean Corpuscular Volume 88, Mean Corpuscular Hemoglobin 30, Mean Corpuscular Hemoglobin Concent 34, Red Cell Distribution Width 13.6, Platelet Count 84L, Mean Platelet Volume 11.7, Immature Granulocyte % (Auto) 2, Neutrophils (%) (Auto) 89H, Lymphocytes (%) (Auto) 5L, Monocytes (%) (Auto) 2, Eosinophils (%) (Auto) 2, Basophils (%) (Auto) 0, Neutrophils # (Auto) 10.0H, Lymphocytes # (Auto) 0.6L, Monocytes # (Auto) 0.2, Eosinophils # (Auto) 0.2, Basophils # (Auto) 0.0, Immature Granulocyte # (Auto) 0.2H, Percent Immature Platelet Fraction 6.3, Prothrombin Time 18.0H, INR Comment 1.4, Activated Partial Thromboplast Time 33, Sodium Level 138, Potassium Level 3.5L, Chloride Level 107, Carbon Dioxide Level 21, Anion Gap 10, Blood Urea Nitrogen 16, Creatinine 0.69, Estimat Glomerular Filtration Rate 82, BUN/Creatinine Ratio 23, Glucose Level 135H, Calcium Level 8.3L, Phosphorus Level 2.9, Magnesium Level 1.9 MAURICIO CARBAJAL MD Apr 19, 2021 08:38
[2021-04-19] MEDS: ACYCLOVIR 400 MG TABLET (ZOVIRAX) PO SCH ×2 (08:59→21:34)
[2021-04-19] MEDS: DOXYCYCLINE INJECTION 100 MG in NS (IVPB) 100 ML IV SCH ×2 (08:59→21:34)
[2021-04-19] MEDS: DOCUSATE SODIUM 100 MG (COLACE) CAP PO SCH ×2 (09:16→21:34)
[2021-04-19] MEDS: SENNOSIDES 8.6 MG (SENOKOT) TAB PO SCH ×2 (09:16→21:34)
--- NOTE | 2021-04-19 12:24 | Physical Therapy Progress Note ---
Therapy Progress Note Nurse requested hold today as patients O2 sats have been declining. Will attempt treatment again at next PT visit. SUDHAKAR ROCHA PT Apr 19, 2021 12:24
[2021-04-19] MEDS: NS IV 1000 ML 1,000 ML IV SCH (16:04)
[2021-04-19] MEDS: FONDAPARINUX 7.5 MG/0.6 ML SQ SCH (16:04)
[2021-04-19] MEDS: DexMEDEtomidine 250 ML DRIP 250 ML IV SCH (17:15)
[2021-04-20] MEDS: RT-ALBUTEROL HFA 8.5 GM INHALER IH SCH ×6 (02:15→22:23)
[2021-04-20 05:15] LABS: EOSINOPHILS % (AUTO) 2 % (0-10); PLATELET COUNT 78 10^3/uL (130-400)
[2021-04-20 05:16] LABS: BASOPHILS % (AUTO) 0 % (0-10); EOSINOPHILS # (AUTO) 0.3 10^3/uL (0.0-0.3); HEMATOCRIT 34 % (35-52); HEMOGLOBIN 11.5 g/dL (11.5-16.0); LYMPHOCYTES # (AUTO) 0.8 10^3/uL (1.0-4.0); LYMPHOCYTES % (AUTO) 6 % (12-44); MEAN CORPUSCULAR HEMOGLOBIN 30 pg (25-34); MEAN CORPUSCULAR HGB CONC 34 g/dL (32-36); MEAN CORPUSCULAR VOLUME 89 fL (80-99); MEAN PLATELET VOLUME 11.8 fL (9.0-12.2); MONOCYTES # (AUTO) 0.4 10^3/uL (0.0-1.0); MONOCYTES % (AUTO) 3 % (0-12); NEUTROPHILS # (AUTO) 11.4 10^3/uL (1.8-7.8); NEUTROPHILS % (AUTO) 87 % (42-75); WHITE BLOOD COUNT 13.1 10^3/uL (4.3-11.0)
[2021-04-20 05:49] LABS: INR 1.4 (0.8-1.4); PROTHROMBIN TIME PATIENT 17.4 SEC (12.2-14.7)
[2021-04-20 05:54] LABS: POTASSIUM 3.9 MMOL/L (3.6-5.0)
[2021-04-20 05:55] LABS: CALCIUM 8.3 MG/DL (8.5-10.1)
[2021-04-20 05:59] LABS: CREATININE SERUM 0.59 MG/DL (0.60-1.30)
[2021-04-20 06:01] LABS: MAGNESIUM 1.8 MG/DL (1.6-2.4)
[2021-04-20] MEDS: POTASSIUM CL 10MEQ/50ML IVPB 50 ML IV SCH (06:22)
[2021-04-20] MEDS: MAGNESIUM 1 GM/100 ML IVPB 100 ML IV SCH (06:22)
[2021-04-20] MEDS: KCL 20 MEQ TAB (K-DUR) PO SCH (06:22)
[2021-04-20] MEDS: inSUlin ASPART (NovoLOG) 1 UNIT/0.01 ML (CHARGE PER UNIT) SC SCH ×4 (06:22→20:47)
[2021-04-20] MEDS: dexAMETHasone 6 MG TAB (DECADRON) PO SCH (06:22)
[2021-04-20 07:33] VITALS: BP 149/79
[2021-04-20] MEDS: ACYCLOVIR 400 MG TABLET (ZOVIRAX) PO SCH ×2 (08:48→20:48)
[2021-04-20] MEDS: DOXYCYCLINE INJECTION 100 MG in NS (IVPB) 100 ML IV SCH ×2 (08:48→20:48)
[2021-04-20] MEDS: DOCUSATE SODIUM 100 MG (COLACE) CAP PO SCH ×3 (08:48→20:46)
[2021-04-20] MEDS: SENNOSIDES 8.6 MG (SENOKOT) TAB PO SCH ×2 (08:49→20:46)
[2021-04-20 10:37] VITALS: BP_SYST 142; BP_SYST 149; BP_DIAS 66; BP_DIAS 79
[2021-04-20] MEDS: NS IV 1000 ML 1,000 ML IV SCH ×2 (11:41→13:24)
--- NOTE | 2021-04-20 12:01 | Progress Note - Hospitalist ---
Subjective HPI/CC On Admission Date Seen by Provider: Apr 20, 2021 Time Seen by Provider: 11:30 CC: Acute hypoxic respiratory failure due to Covid-19 pneumonia from [place], [place] HPI: This is a female patient who was flown in from [place], [place] due to acute hypoxic respiratory failure due to Covid-19 pneumonia. Details are minimal considering she is in mild respiratory distress. She is prone, she is on Vapotherm and we talked briefly. She wants to be a full code, full intubation if that should come to be required. I will review the records and I did check her m eds and labs and acute orders from Dr. Deng. Subjective/Events-last exam Patient still critical BiPAP at 10/5 at 100% Precedex maintained Having some diarrhea Updated sister Review of Systems General: Fatigue, Malaise Objective Exam Vital Signs Vital Signs Date Time Temp Pulse Resp B/P (MAP) Pulse Ox O2 Delivery O2 Flow Rate FiO2 04/21/21 04:00 73 30 114/66 92 NIV Bilevel 95.00 04/20/21 23:55 95 04/20/21 20:00 36.5 Capillary Refill : Less Than 3 Seconds General Appearance: No Apparent Distress, WD/WN, Anxious, Chronically ill, Thin Respiratory: No Accessory Muscle Use, No Respiratory Distress, Decreased Breath Sounds Cardiovascular: Regular Rate, Rhythm Results/Procedures Lab Patient resulted labs reviewed. Assessment/Plan Assessment and Plan Assess & Plan/Chief Complaint Assessment: Acute hypoxic respiratory failure COVID-19 pneumonia Hypothyroidism Bacterial pneumonia Advanced age DO NOT INTUBATE Plan: eICU management appreciated Vapotherm Prone Supportive care High risk for intubation 04/15/2021: Patient does not wish to be intubated Supportive care High risk for decline 04/16/2021: No major changes Continue alternating Vapotherm and BiPAP High risk for decompensation 04/17/2021: Prognosis guarded Reviewed meds 04/18/2021: BiPAP dependent High risk for decompensation 04/19/2021: BiPAP dependent Prognosis guarded DO NOT INTUBATE Updated family 04/20/2021: Supportive care BiPAP dependent Diagnosis/Problems Diagnosis/Problems (1) Acute respiratory failure due to COVID-19 JUVENCIO CAM DO Apr 20, 2021 12:01
--- NOTE | 2021-04-20 12:27 | Tele-ICU Progress Note ---
Subjective Date Seen by a Provider: Apr 20, 2021 Time Seen by a Provider: 12:27 Sepsis Event Evaluation Height, Weight, BMI Height: '" Weight: lbs. oz. kg; 26.21 BMI Method: Exam Exam Patient acknowledged, consented, and participated in this virtual visit which was conducted using real time audio/video Vital Signs Date Time Temp Pulse Resp B/P (MAP) Pulse Ox O2 Delivery O2 Flow Rate FiO2 04/20/21 12:00 89 32 137/72 96 NIV Bilevel 100.00 04/20/21 11:00 96 26 130/74 93 NIV Bilevel 100.00 04/20/21 10:00 97 32 142/66 90 NIV Bilevel 100.00 04/20/21 09:13 NIV Bilevel 100.00 04/20/21 09:00 36.8 04/20/21 09:00 97 31 161/82 91 NIV Bilevel 85.00 04/20/21 08:15 93 NIV Bilevel 100 04/20/21 08:00 84 33 149/74 90 NIV Bilevel 85.00 04/20/21 07:33 84 25 90 90.00 04/20/21 07:00 86 28 149/79 91 NIV Bilevel 85.00 04/20/21 07:00 88 04/20/21 06:00 75 24 135/70 93 NIV Bilevel 85.00 04/20/21 05:00 76 23 133/66 91 NIV Bilevel 85.00 04/20/21 04:00 36.8 04/20/21 04:00 77 27 137/70 92 NIV Bilevel 85.00 04/20/21 04:00 92 NIV Bilevel 90 04/20/21 03:00 78 28 143/73 91 NIV Bilevel 85.00 04/20/21 02:16 83 23 93 90.00 04/20/21 02:00 76 29 145/75 92 NIV Bilevel 85.00 04/20/21 01:31 84 90 90 04/20/21 01:00 79 22 152/75 93 NIV Bilevel 85.00 04/20/21 01:00 80 04/20/21 00:00 92 NIV Bilevel 90 04/20/21 00:00 36.8 04/20/21 00:00 75 26 146/71 91 NIV Bilevel 85.00 04/19/21 23:00 80 27 91 NIV Bilevel 85.00 04/19/21 22:12 84 25 93 90.00 04/19/21 22:00 88 23 150/77 93 NIV Bilevel 85.00 04/19/21 21:00 77 29 153/79 90 NIV Bilevel 85.00 04/19/21 20:00 36.8 04/19/21 20:00 93 NIV Bilevel 90 04/19/21 20:00 91 24 93 NIV Bilevel 85.00 04/19/21 19:00 87 04/19/21 19:00 76 28 131/80 92 NIV Bilevel 85.00 04/19/21 18:29 88 30 90 90.00 04/19/21 18:00 82 29 90 NIV Bilevel 85.00 04/19/21 17:15 87 142/75 04/19/21 17:11 36.7 04/19/21 17:00 90 24 142/75 91 NIV Bilevel 85.00 04/19/21 16:30 94 NIV Bilevel 90 04/19/21 16:00 91 30 147/74 92 NIV Bilevel 85.00 04/19/21 15:41 93 26 91 90.00 04/19/21 15:00 93 26 138/74 92 NIV Bilevel 85.00 04/19/21 14:00 82 21 131/69 94 NIV Bilevel 85.00 04/19/21 13:00 74 04/19/21 13:00 77 27 134/73 94 NIV Bilevel 85.00 I & O 04/20/21 07:00 Intake Total 1817 ml Output Total 1100 ml Balance 717 ml Height & Weight Height: '" Weight: lbs. oz. kg; 26.21 BMI Method: General Appearance: Anxious, Chronically ill, Mild Distress, Thin, Other (Frail) Neck: Full Range of Motion, Normal Inspection, Non Tender Respiratory: Normal Breath Sounds, No Respiratory Distress, Accessory Muscle Use, Decreased Breath Sounds Cardiovascular: Regular Rate, Rhythm Capillary Refill: Less Than 3 Seconds Extremity: Normal Capillary Refill, Normal Inspection, Normal Range of Motion, Non Tender, No Calf Tenderness, No Pedal Edema Neurologic/Psychiatric: Alert, Oriented x3 Results Lab Laboratory Tests 04/18/21 15:30 04/19/21 04:40 04/20/21 04:50 Assessment/Plan Assessment/Plan Tele-ICU Physician , Progress Note ) Available chart/ vitals / labs / Images reviewed Video assessment done using teleICU camera, rest of exam as per RN Discussed with RN , EXAM PER RN FEBRILE FiO2 - I/O = even Drips: ns 50 Pressors: , hemodynamically stable Consultants: Hospital course: (04/14) 80 y/o female admitted for COVID+, transfer from other facility - , VT 20L 70% 04/15-- VT 50L 100% , 04/16 - bipap 13/12 65% at night , VT 70L 100% 04/18 - + PE 04/20 - Bipap 15/10 90% A/P AHRF / ARDS due to severe COVID19 ( CTA neg for pe 04/13 - in other facility , reportedly -Bipap 15/10 90% -prone position if able - on SIDE - conservative fluid strategy (aim for even or negative fluid balance [id number]-Qkhtpzjbbmd-8/COVID-19 PNA ( Symptom onset unknown now DX unvaccinted -Dexamethasone -actemrta 04/15 ( acyclovir 30 d ) -Hypercoagulable state -> lovenox ppx dose , CTA neg for pe 04/13 - in other facility ,, CT 04/18 + for PE , US LE - negative for DVT - Monitor for superimposed bact PNA -doxy -04/18 CT 04/18 + for PE , US LE - negative for DVT - arixtra Hyperglycemia - ISS , close f/up on steroids Thrombocutopenia is probably consumptional - HIT 04/18 pending Lines : periph (Central Line Necessity Reviewed) Fonseca: 04/14 OG: Nutrition: TPN ? - not eating for 48 h Analgesia: Anxiety/ delirium VTE Prophylaxis: urszula 40 Stress Ulcer Prophylaxis: po Plans in collaboration with bedside consultants and IM MDs. Discussed with RN to reach out if any questions or concerns A total of 35 minutes of critical care time was devoted to this patient today, required to treat and/or prevent further deterioration of critical care condition ( as above ) . BENEDICT ZAYAS MD Apr 20, 2021 12:27
[2021-04-20 14:27] VITALS: BP 148/85
[2021-04-20] MEDS: FONDAPARINUX 7.5 MG/0.6 ML SQ SCH (17:54)
[2021-04-20 18:50] VITALS: BP 144/67
[2021-04-20] MEDS: MICONAZOLE 2% POWDER (DESENEX AF) 90 GM TOP SCH (20:48)
[2021-04-20] MEDS ORDERED: MICONAZOLE 2% POWDER (DESENEX AF) 90 GM TOP SCH (21:00)
[2021-04-20 22:24] VITALS: BP 111/67
[2021-04-21 02:49] VITALS: BP 137/77
[2021-04-21 05:49] LABS: BASOPHILS % (AUTO) 0 % (0-10); EOSINOPHILS # (AUTO) 0.3 10^3/uL (0.0-0.3); EOSINOPHILS % (AUTO) 2 % (0-10); HEMATOCRIT 34 % (35-52); HEMOGLOBIN 11.4 g/dL (11.5-16.0); LYMPHOCYTES # (AUTO) 0.8 10^3/uL (1.0-4.0); LYMPHOCYTES % (AUTO) 6 % (12-44); MEAN CORPUSCULAR HEMOGLOBIN 30 pg (25-34); MEAN CORPUSCULAR HGB CONC 34 g/dL (32-36); MEAN CORPUSCULAR VOLUME 90 fL (80-99); MEAN PLATELET VOLUME 12.6 fL (9.0-12.2); MONOCYTES # (AUTO) 0.4 10^3/uL (0.0-1.0); MONOCYTES % (AUTO) 3 % (0-12); NEUTROPHILS % (AUTO) 88 % (42-75); PLATELET COUNT 59 10^3/uL (130-400); WHITE BLOOD COUNT 13.7 10^3/uL (4.3-11.0)
[2021-04-21 06:08] LABS: ALBUMIN 2.7 GM/DL (3.2-4.5); POTASSIUM 3.8 MMOL/L (3.6-5.0)
[2021-04-21 06:09] LABS: CALCIUM 8.2 MG/DL (8.5-10.1)
[2021-04-21 06:12] LABS: BILIRUBIN,TOTAL 0.6 MG/DL (0.1-1.0)
[2021-04-21 06:14] LABS: CREATININE SERUM 0.59 MG/DL (0.60-1.30); PHOSPHORUS 2.9 MG/DL (2.3-4.7)
[2021-04-21 06:16] LABS: BILIRUBIN,DIRECT 0.3 MG/DL (0.0-0.3); BILIRUBIN,INDIRECT 0.3 MG/DL
[2021-04-21 06:17] LABS: MAGNESIUM 1.8 MG/DL (1.6-2.4)
[2021-04-21] MEDS: KCL 20 MEQ TAB (K-DUR) PO SCH (06:18)
[2021-04-21] MEDS: inSUlin ASPART (NovoLOG) 1 UNIT/0.01 ML (CHARGE PER UNIT) SC SCH ×4 (06:18→21:17)
[2021-04-21] MEDS: POTASSIUM CL 10MEQ/50ML IVPB 50 ML IV SCH (06:18)
[2021-04-21] MEDS: MAGNESIUM 1 GM/100 ML IVPB 100 ML IV SCH (06:18)
[2021-04-21 06:30] LABS: BAND NEUTROPHILS 2 %; EOSINOPHILS % (MANUAL) 1 %; INR 1.4 (0.8-1.4); LYMPHOCYTES % (MANUAL) 2 %; MONOCYTES % (MANUAL) 2 %; NEUTROPHILS % (MANUAL) 93 %; PROTHROMBIN TIME PATIENT 17.6 SEC (12.2-14.7)
[2021-04-21 06:56] VITALS: BP 129/71
[2021-04-21] MEDS: RT-ALBUTEROL HFA 8.5 GM INHALER IH SCH ×5 (06:58→21:42)
[2021-04-21] MEDS: DOXYCYCLINE INJECTION 100 MG in NS (IVPB) 100 ML IV SCH ×2 (09:01→21:11)
[2021-04-21] MEDS: SENNOSIDES 8.6 MG (SENOKOT) TAB PO SCH ×2 (09:01→21:11)
[2021-04-21] MEDS: DOCUSATE SODIUM 100 MG (COLACE) CAP PO SCH ×2 (09:01→21:11)
[2021-04-21] MEDS: ACYCLOVIR 400 MG TABLET (ZOVIRAX) PO SCH ×2 (09:15→21:09)
[2021-04-21] MEDS: NS IV 1000 ML 1,000 ML IV SCH (09:15)
[2021-04-21 10:00] VITALS: BP 130/70
--- NOTE | 2021-04-21 10:14 | Physical Therapy Progress Note ---
Therapy Progress Note Attempted to see patient for PT treatment this am. Nurse requests hold as patient "she is on the highest level for the BiPap and her sats are still low." Will attempt again tomorrow and progress per patient tolerance. SUDHAKAR ROCHA PT Apr 21, 2021 10:14
[2021-04-21] MEDS ORDERED: FUROSEMIDE 40 MG/4 ML INJ (LASIX) IVP ONE (10:15)
--- NOTE | 2021-04-21 10:37 | Tele-ICU Progress Note ---
Subjective Date Seen by a Provider: Apr 21, 2021 Time Seen by a Provider: 10:37 Sepsis Event Evaluation Height, Weight, BMI Height: '" Weight: lbs. oz. kg; 26.21 BMI Method: Exam Exam Patient acknowledged, consented, and participated in this virtual visit which was conducted using real time audio/video Vital Signs Date Time Temp Pulse Resp B/P (MAP) Pulse Ox O2 Delivery O2 Flow Rate FiO2 04/21/21 10:00 96 16 155/86 90 NIV Bilevel 100.00 04/21/21 09:24 NIV Bilevel 100.00 04/21/21 09:00 84 24 134/75 91 NIV Bilevel 95.00 04/21/21 08:00 74 30 120/69 93 NIV Bilevel 95.00 04/21/21 08:00 36.4 04/21/21 07:00 77 30 115/68 91 NIV Bilevel 95.00 04/21/21 07:00 74 04/21/21 06:56 76 31 92 95.00 04/21/21 06:00 82 28 129/71 91 NIV Bilevel 95.00 04/21/21 05:00 73 27 111/63 93 NIV Bilevel 95.00 04/21/21 04:00 36.6 04/21/21 04:00 92 NIV Bilevel 95 04/21/21 04:00 73 30 114/66 92 NIV Bilevel 95.00 04/21/21 03:00 76 32 109/67 91 NIV Bilevel 95.00 04/21/21 02:49 76 24 90 95.00 04/21/21 02:00 80 32 105/67 91 NIV Bilevel 95.00 04/21/21 01:00 84 28 103/57 91 NIV Bilevel 95.00 04/21/21 01:00 84 04/21/21 00:00 36.8 04/21/21 00:00 82 30 128/73 94 NIV Bilevel 95.00 04/20/21 23:55 92 NIV Bilevel 95 04/20/21 23:30 83 32 92 NIV Bilevel 95.00 04/20/21 23:00 85 28 126/68 93 NIV Bilevel 100.00 04/20/21 22:24 95 27 92 95.00 04/20/21 22:00 89 19 111/67 92 NIV Bilevel 100.00 04/20/21 21:00 89 8 127/69 90 NIV Bilevel 100.00 04/20/21 20:00 93 25 131/70 93 NIV Bilevel 100.00 04/20/21 20:00 36.5 04/20/21 20:00 92 NIV Bilevel 90 04/20/21 19:00 82 114/71 91 NIV Bilevel 100.00 04/20/21 19:00 82 04/20/21 18:50 90 26 94 90.00 04/20/21 18:00 92 29 133/65 92 NIV Bilevel 100.00 04/20/21 17:00 83 27 118/69 92 NIV Bilevel 100.00 04/20/21 16:18 92 NIV Bilevel 90 04/20/21 16:00 36.9 04/20/21 16:00 87 23 122/66 92 NIV Bilevel 100.00 04/20/21 15:00 89 27 129/74 93 NIV Bilevel 100.00 04/20/21 14:27 94 28 92 90.00 04/20/21 14:00 96 23 148/85 93 NIV Bilevel 100.00 04/20/21 13:00 98 28 138/79 92 NIV Bilevel 100.00 04/20/21 12:41 97 04/20/21 12:30 92 NIV Bilevel 100 04/20/21 12:00 89 32 137/72 96 NIV Bilevel 100.00 04/20/21 11:00 96 26 130/74 93 NIV Bilevel 100.00 I & O 04/21/21 07:00 Intake Total 270 ml Output Total 740 ml Balance -470 ml Height & Weight Height: '" Weight: lbs. oz. kg; 26.21 BMI Method: General Appearance: No Apparent Distress, WD/WN, Anxious, Chronically ill, Thin Neck: Full Range of Motion, Normal Inspection, Non Tender Respiratory: No Accessory Muscle Use, No Respiratory Distress, Decreased Breath Sounds Cardiovascular: Regular Rate, Rhythm Capillary Refill: Less Than 3 Seconds Extremity: Normal Capillary Refill, Normal Inspection, Normal Range of Motion, Non Tender, No Calf Tenderness, No Pedal Edema Neurologic/Psychiatric: Alert, Oriented x3 Results Lab Laboratory Tests 04/20/21 04:50 04/21/21 04:47 Assessment/Plan Assessment/Plan Tele-ICU Physician , Progress Note ) Available chart/ vitals / labs / Images reviewed Video assessment done using teleICU camera, rest of exam as per RN Discussed with RN , EXAM PER RN FEBRILE FiO2 - I/O = even Drips: ns 50 Pressors: , hemodynamically stable Consultants: Hospital course: (04/14) 80 y/o female admitted for COVID+, transfer from other facility - , VT 20L 70% 04/15-- VT 50L 100% , 04/16 - bipap / 65% at night , VT 70L 100% 04/18 - + PE 04/20 - Bipap 15/10 90% A/P AHRF / ARDS due to severe COVID19 ( CTA neg for pe 04/13 - in other facility , reportedly -Bipap 15/10 90% -prone position if able - on SIDE - conservative fluid strategy (aim for even or negative fluid balance - TRY DIURESIS X1 TODAY WGWM-Xmwohdmglwu-1/COVID-19 PNA ( Symptom onset unknown now DX unvaccinted -Dexamethasone -actemrta 04/15 ( acyclovir 30 d ) -Hypercoagulable state -> lovenox ppx dose , CTA neg for pe 04/13 - in other facility ,, CT 04/18 + for PE , US LE - negative for DVT - Monitor for superimposed bact PNA -doxy -04/18 CT 04/18 + for PE , US LE - negative for DVT - arixtra - STOPPEd 04/21 Hyperglycemia - ISS , close f/up on steroids Thrombocutopenia is probably consumptional - HIT 04/18 pending - Lines : periph (Central Line Necessity Reviewed) Fonseca: 04/14 OG: Nutrition: TPN ? - not eating for 48 h Analgesia: Anxiety/ delirium VTE Prophylaxis: urszula 40 Stress Ulcer Prophylaxis: po Plans in collaboration with bedside consultants and IM MDs. Discussed with RN to reach out if any questions or concerns A total of 35 minutes of critical care time was devoted to this patient today, required to treat and/or prevent further deterioration of critical care condition ( as above ) . BENEDICT ZAYAS MD Apr 21, 2021 10:37
--- NOTE | 2021-04-21 10:39 | Diagnostic Imaging Report ---
INDICATION: Hypoxia. TIME OF EXAM: 10:19 AM Correlation is made with prior chest from 04/17/2021. FINDINGS: Right upper extremity PICC line has tip overlying the SVC/RA junction. Diffuse bilateral pulmonary infiltrates persist and appear increased since 4 days earlier. No effusion or pneumothorax is seen. IMPRESSION: Worsening bilateral pulmonary infiltrates when compared to examination 4 days earlier. Dictated by: Dictated on workstation # [id number]
--- NOTE | 2021-04-21 10:44 | Occ Therapy Progress Note ---
Therapy Progress Note Attempted to see patient for OT treatment this am. Nurse requests hold as patient "she is on the highest level for the BiPap and her sats are still low." Will attempt again tomorrow and progress per patient tolerance. CRUZ MCNEAL Apr 21, 2021 10:44
[2021-04-21] MEDS: MICONAZOLE 2% POWDER (DESENEX AF) 90 GM TOP SCH ×2 (10:58→21:11)
--- NOTE | 2021-04-21 13:04 | Progress Note - Hospitalist ---
Subjective HPI/CC On Admission Date Seen by Provider: Apr 21, 2021 Time Seen by Provider: 09:20 CC: Acute hypoxic respiratory failure due to Covid-19 pneumonia from [place], [place] HPI: This is a female patient who was flown in from [place], [place] due to acute hypoxic respiratory failure due to Covid-19 pneumonia. Details are minimal considering she is in mild respiratory distress. She is prone, she is on Vapotherm and we talked briefly. She wants to be a full code, full intubation if that should come to be required. I will review the records and I did check her meds and labs and acute orders from Dr. Degn. Subjective/Events-last exam She is short of breath. She is wearing BiPAP. She denies pain. Objective Exam Vital Signs Vital Signs Date Time Temp Pulse Resp B/P (MAP) Pulse Ox O2 Delivery O2 Flow Rate FiO2 04/21/21 12:36 99 04/21/21 12:00 10 112/60 95 NIV Bilevel 100.00 04/21/21 11:15 37.0 04/21/21 08:00 100 Capillary Refill : Less Than 3 Seconds General Appearance: No Apparent Distress, WD/WN Respiratory: Lungs Clear, Respiratory Distress (tachypnea), Other (wearing BiPAP) Cardiovascular: Regular Rate, Rhythm, No Edema, No Murmur Gastrointestinal: Normal Bowel Sounds, Non Tender, Soft Extremity: Normal Inspection, Non Tender, No Pedal Edema Neurologic/Psychiatric: Alert, Depressed Affect Skin: Normal Color, Warm/Dry Results/Procedures Lab Laboratory Tests 04/21/21 04:47 Patient resulted labs reviewed. Imaging: Reviewed Imaging Report Assessment/Plan Assessment and Plan Assess & Plan/Chief Complaint Acute respiratory distress syndrome due to COVID-19 Secondary bacterial pneumonia Hypercoagulable state due to COVID-19 Pulmonary embolism Poor prognosis Continue BiPAP Decadron s/p Actemra Doxycycline Fondaparinux TeleICU following HTN Hypothyroidism Continue home meds Critical Care Critically Ill Patient Diagnosis/Problems Diagnosis/Problems (1) Acute respiratory distress syndrome (ARDS) due to COVID-19 virus Status: Acute (2) Hypercoagulable state associated with COVID-19 Status: Acute (3) Pulmonary embolism Status: Acute (4) Secondary bacterial pneumonia Status: Acute (5) Poor prognosis Status: Acute (6) Hypothyroidism Status: Chronic (7) HTN (hypertension) Status: Chronic RANDAL,ABHISHEK M MD Apr 21, 2021 13:04
[2021-04-21] MEDS ORDERED: PANTOPRAZOLE 40 MG (PROTONIX) TAB PO NR (13:30)
[2021-04-21 14:03] VITALS: BP 107/68
[2021-04-21 18:43] VITALS: BP 110/70
[2021-04-21 21:43] VITALS: BP 111/66
--- NOTE | 2021-04-22 01:54 | Tele-ICU Progress Note ---
Subjective Date Seen by a Provider: Apr 22, 2021 Time Seen by a Provider: 01:53 Sepsis Event Evaluation Height, Weight, BMI Height: '" Weight: lbs. oz. kg; 26.21 BMI Method: Exam Exam Patient acknowledged, consented, and participated in this virtual visit which was conducted using real time audio/video Vital Signs Date Time Temp Pulse Resp B/P (MAP) Pulse Ox O2 Delivery O2 Flow Rate FiO2 04/22/21 00:00 81 27 114/66 91 NIV Bilevel 80.00 04/21/21 23:00 80 13 128/60 90 NIV Bilevel 80.00 04/21/21 22:00 81 28 105/62 91 NIV Bilevel 80.00 04/21/21 21:43 80 26 91 80.00 04/21/21 21:00 8 28 111/66 92 NIV Bilevel 80.00 04/21/21 20:00 81 25 105/65 92 NIV Bilevel 80.00 04/21/21 20:00 91 NIV Bilevel 80 04/21/21 20:00 36.2 04/21/21 19:00 81 29 104/63 92 NIV Bilevel 80.00 04/21/21 19:00 82 04/21/21 18:43 85 30 92 80.00 04/21/21 18:00 83 27 110/70 91 NIV Bilevel 80.00 04/21/21 17:41 NIV Bilevel 80.00 04/21/21 17:00 85 33 113/64 93 NIV Bilevel 90.00 04/21/21 16:15 94 NIV Bilevel 90 04/21/21 16:00 85 26 104/60 92 NIV Bilevel 90.00 04/21/21 16:00 35.9 04/21/21 15:00 84 28 112/74 95 NIV Bilevel 90.00 04/21/21 14:03 82 28 92 90.00 04/21/21 14:00 85 30 107/68 91 NIV Bilevel 90.00 04/21/21 13:20 NIV Bilevel 90.00 04/21/21 13:00 92 26 106/74 97 NIV Bilevel 100.00 04/21/21 12:36 99 04/21/21 12:15 92 NIV Bilevel 100 04/21/21 12:00 97 10 112/60 95 NIV Bilevel 100.00 04/21/21 11:15 37.0 04/21/21 11:00 96 30 131/62 92 NIV Bilevel 100.00 04/21/21 10:00 77 31 91 95.00 04/21/21 10:00 96 16 155/86 90 NIV Bilevel 100.00 04/21/21 09:24 NIV Bilevel 100.00 04/21/21 09:00 84 24 134/75 91 NIV Bilevel 95.00 04/21/21 08:00 74 30 120/69 93 NIV Bilevel 95.00 04/21/21 08:00 90 NIV Bilevel 100 04/21/21 08:00 36.4 04/21/21 07:00 77 30 115/68 91 NIV Bilevel 95.00 04/21/21 07:00 74 04/21/21 06:56 76 31 92 95.00 04/21/21 06:00 82 28 129/71 91 NIV Bilevel 95.00 04/21/21 05:00 73 27 111/63 93 NIV Bilevel 95.00 04/21/21 04:00 36.6 04/21/21 04:00 92 NIV Bilevel 95 04/21/21 04:00 73 30 114/66 92 NIV Bilevel 95.00 04/21/21 03:00 76 32 109/67 91 NIV Bilevel 95.00 04/21/21 02:49 76 24 90 95.00 04/21/21 02:00 80 32 105/67 91 NIV Bilevel 95.00 I & O 04/22/21 07:00 Intake Total 1530 ml Output Total 2050 ml Balance -520 ml Height & Weight Height: '" Weight: lbs. oz. kg; 26.21 BMI Method: General Appearance: No Apparent Distress, WD/WN Neck: Full Range of Motion, Normal Inspection, Non Tender Respiratory: Lungs Clear, Respiratory Distress (tachypnea), Other (wearing BiPAP) Cardiovascular: Regular Rate, Rhythm, No Edema, No Murmur Capillary Refill: Less Than 3 Seconds Extremity: Normal Inspection, Non Tender, No Pedal Edema Neurologic/Psychiatric: Alert, Depressed Affect Skin: Normal Color, Warm/Dry Results Lab Laboratory Tests 04/20/21 04:50 04/21/21 04:47 Assessment/Plan Assessment/Plan pt got lasix on 04.21 followed by 1.3l output; currently urine output is 75c over 4h; we will give a small 250cc bolus KIRA PALACIO MD Apr 22, 2021 01:54
[2021-04-22] MEDS ORDERED: NS (IVPB) 250 ML IV ONE (02:00)
[2021-04-22 02:27] VITALS: BP 107/68
[2021-04-22] MEDS: RT-ALBUTEROL HFA 8.5 GM INHALER IH SCH ×6 (02:27→21:43)
[2021-04-22 04:06] LABS: BASOPHILS # (AUTO) 0.1 10^3/uL (0.0-0.1); BASOPHILS % (AUTO) 0 % (0-10); EOSINOPHILS # (AUTO) 0.1 10^3/uL (0.0-0.3); EOSINOPHILS % (AUTO) 1 % (0-10); HEMATOCRIT 36 % (35-52); HEMOGLOBIN 11.8 g/dL (11.5-16.0); LYMPHOCYTES # (AUTO) 1.4 10^3/uL (1.0-4.0); LYMPHOCYTES % (AUTO) 7 % (12-44); MEAN CORPUSCULAR HEMOGLOBIN 30 pg (25-34); MEAN CORPUSCULAR HGB CONC 33 g/dL (32-36); MEAN CORPUSCULAR VOLUME 89 fL (80-99); MEAN PLATELET VOLUME 12.1 fL (9.0-12.2); MONOCYTES # (AUTO) 0.6 10^3/uL (0.0-1.0); MONOCYTES % (AUTO) 3 % (0-12); NEUTROPHILS # (AUTO) 17.1 10^3/uL (1.8-7.8); NEUTROPHILS % (AUTO) 88 % (42-75); PLATELET COUNT 66 10^3/uL (130-400); WHITE BLOOD COUNT 19.4 10^3/uL (4.3-11.0)
[2021-04-22 04:16] LABS: POTASSIUM 3.5 MMOL/L (3.6-5.0)
[2021-04-22 04:17] LABS: CALCIUM 8.5 MG/DL (8.5-10.1)
[2021-04-22 04:21] LABS: PHOSPHORUS 3.5 MG/DL (2.3-4.7)
[2021-04-22 04:22] LABS: CREATININE SERUM 0.69 MG/DL (0.60-1.30)
[2021-04-22 04:23] LABS: INR 1.4 (0.8-1.4); PROTHROMBIN TIME PATIENT 17.7 SEC (12.2-14.7)
[2021-04-22 04:24] LABS: MAGNESIUM 1.9 MG/DL (1.6-2.4)
[2021-04-22] MEDS ORDERED: POTASSIUM CL 10MEQ/50ML IVPB 100 ML IV ONE (04:46)
[2021-04-22 04:58] LABS: ATYPICAL LYMPHOCYTES 1 %; BAND NEUTROPHILS 3 %; EOSINOPHILS % (MANUAL) 3 %; LYMPHOCYTES % (MANUAL) 4 %; MONOCYTES % (MANUAL) 3 %; NEUTROPHILS % (MANUAL) 86 %
[2021-04-22 04:59] LABS: RBC MORPH NORMAL
[2021-04-22] MEDS: POTASSIUM CL 10MEQ/50ML IVPB 50 ML IV SCH ×2 (05:01→05:19)
[2021-04-22] MEDS: inSUlin ASPART (NovoLOG) 1 UNIT/0.01 ML (CHARGE PER UNIT) SC SCH ×4 (05:19→21:11)
[2021-04-22] MEDS: MAGNESIUM 1 GM/100 ML IVPB 100 ML IV SCH (05:19)
[2021-04-22] MEDS: KCL 20 MEQ TAB (K-DUR) PO SCH (05:19)
[2021-04-22] MEDS: LEVOTHYROXINE 100 MCG (LEVOTHROID) TAB PO SCH (06:48)
[2021-04-22 06:53] VITALS: BP 114/64
[2021-04-22] MEDS ORDERED: ENOXAPARIN 100 MG/1 ML (LOVENOX) SYR SC SCH (07:15)
[2021-04-22] MEDS: DOCUSATE SODIUM 100 MG (COLACE) CAP PO SCH ×2 (07:47→21:11)
[2021-04-22] MEDS: SENNOSIDES 8.6 MG (SENOKOT) TAB PO SCH ×2 (07:48→21:11)
[2021-04-22] MEDS: PANTOPRAZOLE 40 MG (PROTONIX) TAB PO SCH (08:43)
[2021-04-22] MEDS: ACYCLOVIR 400 MG TABLET (ZOVIRAX) PO SCH ×2 (08:43→21:11)
[2021-04-22] MEDS: DOXYCYCLINE INJECTION 100 MG in NS (IVPB) 100 ML IV SCH ×2 (08:46→21:10)
[2021-04-22] MEDS: MICONAZOLE 2% POWDER (DESENEX AF) 90 GM TOP SCH ×2 (08:47→21:10)
--- NOTE | 2021-04-22 09:02 | Physical Therapy Progress Note ---
Therapy Progress Note Attempted to see patient for PT treatment this am. Nurse requests hold as patients O2 sats are still decreasing with any movement. Will attempt again tomorrow and progress per patient tolerance. SUDHAKAR ROCHA PT Apr 22, 2021 09:02
--- NOTE | 2021-04-22 10:06 | Tele-ICU Progress Note ---
Subjective Date Seen by a Provider: Apr 22, 2021 Time Seen by a Provider: 10:05 Sepsis Event Evaluation Height, Weight, BMI Height: '" Weight: lbs. oz. kg; 26.21 BMI Method: Exam Exam Patient acknowledged, consented, and participated in this virtual visit which was conducted using real time audio/video Vital Signs Date Time Temp Pulse Resp B/P (MAP) Pulse Ox O2 Delivery O2 Flow Rate FiO2 04/22/21 08:00 92 NIV Bilevel 100 04/22/21 07:45 37.0 04/22/21 07:00 78 04/22/21 06:53 83 24 91 100.00 04/22/21 06:00 82 21 117/64 92 NIV Bilevel 100.00 04/22/21 05:02 100.00 04/22/21 05:00 89 28 134/64 87 NIV Bilevel 90.00 04/22/21 04:00 77 22 117/66 88 NIV Bilevel 90.00 04/22/21 04:00 91 NIV Bilevel 100 04/22/21 04:00 36.7 04/22/21 03:40 90.00 04/22/21 03:00 84 23 127/64 90 NIV Bilevel 85.00 04/22/21 02:27 73 25 91 85.00 04/22/21 02:00 75 26 107/68 91 NIV Bilevel 85.00 04/22/21 01:54 NIV Bilevel 85.00 04/22/21 01:30 NIV Bilevel 85.00 04/22/21 01:00 79 107/68 91 NIV Bilevel 80.00 04/22/21 01:00 74 04/22/21 00:00 81 27 114/66 91 NIV Bilevel 80.00 04/22/21 00:00 88 NIV Bilevel 90 04/22/21 00:00 36.4 04/21/21 23:00 80 13 128/60 90 NIV Bilevel 80.00 04/21/21 22:00 81 28 105/62 91 NIV Bilevel 80.00 04/21/21 21:43 80 26 91 80.00 04/21/21 21:00 8 28 111/66 92 NIV Bilevel 80.00 04/21/21 20:00 81 25 105/65 92 NIV Bilevel 80.00 04/21/21 20:00 91 NIV Bilevel 80 04/21/21 20:00 36.2 04/21/21 19:00 81 29 104/63 92 NIV Bilevel 80.00 04/21/21 19:00 82 04/21/21 18:43 85 30 92 80.00 04/21/21 18:00 83 27 110/70 91 NIV Bilevel 80.00 04/21/21 17:41 NIV Bilevel 80.00 04/21/21 17:00 85 33 113/64 93 NIV Bilevel 90.00 04/21/21 16:15 94 NIV Bilevel 90 04/21/21 16:00 85 26 104/60 92 NIV Bilevel 90.00 04/21/21 16:00 35.9 04/21/21 15:00 84 28 112/74 95 NIV Bilevel 90.00 04/21/21 14:03 82 28 92 90.00 04/21/21 14:00 85 30 107/68 91 NIV Bilevel 90.00 04/21/21 13:20 NIV Bilevel 90.00 04/21/21 13:00 92 26 106/74 97 NIV Bilevel 100.00 04/21/21 12:36 99 04/21/21 12:15 92 NIV Bilevel 100 04/21/21 12:00 97 10 112/60 95 NIV Bilevel 100.00 04/21/21 11:15 37.0 04/21/21 11:00 96 30 131/62 92 NIV Bilevel 100.00 I & O 04/22/21 07:00 Intake Total 2117 ml Output Total 2200 ml Balance -83 ml Height & Weight Height: '" Weight: lbs. oz. kg; 26.21 BMI Method: General Appearance: No Apparent Distress, WD/WN Neck: Full Range of Motion, Normal Inspection, Non Tender Respiratory: Lungs Clear, Respiratory Distress (tachypnea), Other (wearing BiPAP) Cardiovascular: Regular Rate, Rhythm, No Edema, No Murmur Capillary Refill: Less Than 3 Seconds Extremity: Normal Inspection, Non Tender, No Pedal Edema Neurologic/Psychiatric: Alert, Depressed Affect Skin: Normal Color, Warm/Dry Results Lab Laboratory Tests 04/21/21 04:47 04/22/21 03:38 Assessment/Plan Assessment/Plan Tele-ICU Physician , Progress Note ) Available chart/ vitals / labs / Images reviewed Video assessment done using teleICU camera, rest of exam as per RN Discussed with RN , EXAM PER RN FEBRILE FiO2 - I/O = even Drips: ns 50 Pressors: , hemodynamically stable Consultants: Hospital course: (04/14) 80 y/o female admitted for COVID+, transfer from other facility - , VT 20L 70% 04/15-- VT 50L 100% , 04/16 - bipap 13/8 65% at night , VT 70L 100% 04/18 - + PE 04/20 - Bipap 15/10 90% , PLT ?- arixtra on hold, DIURESIS X1 with good resuts , but no change in respiratory status 04/22 - 100% bipap, HIT negative , back on lovenox A/P AHRF / ARDS due to severe COVID19 ( CTA neg for pe 04/13 - in other facility , reportedly -Bipap 15/10 100 % -prone position if able - on SIDE - conservative fluid strategy (aim for even or negative fluid balance - DIURESIS X1 with good resuts , but no change in respiratory status VMRZ-Hlehrzajcxj-2/COVID-19 PNA ( Symptom onset unknown now DX unvaccinted -Dexamethasone -actemrta 04/15 ( acyclovir 30 d ) -Hypercoagulable state -> lovenox ppx dose , CTA neg for pe 04/13 - in other facility ,, CT 04/18 + for PE , US LE - negative for DVT - Monitor for superimposed bact PNA -doxy -04/18 - 04/22 ? wbc - might need another abx CT 04/18 + for PE , US LE - negative for DVT - arixtra - STOPPEd 04/21 - lovenox resumed 04/22 70 bid Hyperglycemia - ISS , close f/up on steroids Thrombocutopenia is probably consumptional - HIT 04/18negative - back on [id number] 21 Dr Deng is discussing with family and patient goal of care , adressing nutritions Lines : periph (Central Line Necessity Reviewed) Fonseca: 04/14 OG: Nutrition: TPN ? - not eating for 48 h vs TF Analgesia: Anxiety/ delirium VTE Prophylaxis: urszula 40 Stress Ulcer Prophylaxis: po Plans in collaboration with bedside consultants and IM MDs. Discussed with RN to reach out if any questions or concerns A total of 35 minutes of critical care time was devoted to this patient today, required to treat and/or prevent further deterioration of critical care condition ( as above ) . BENEDICT ZAYAS MD Apr 22, 2021 10:06
[2021-04-22 10:24] VITALS: BP 148/78
--- NOTE | 2021-04-22 10:29 | Occ Therapy Progress Note ---
Therapy Progress Note Attempted to see patient for OT treatment this am. Nurse requests hold as patients O2 sats are still decreasing with any movement. Will attempt again tomorrow. CRUZ MCNEAL Apr 22, 2021 10:28
[2021-04-22 14:25] VITALS: BP 129/69
--- NOTE | 2021-04-22 17:14 | Progress Note - Hospitalist ---
Subjective HPI/CC On Admission Date Seen by Provider: Apr 22, 2021 Time Seen by Provider: 10:15 CC: Acute hypoxic respiratory failure due to Covid-19 pneumonia from [place], [place] HPI: This is a female patient who was flown in from [place], [place] due to acute hypoxic respiratory failure due to Covid-19 pneumonia. Details are minimal considering she is in mild respiratory distress. She is prone, she is on Vapotherm and we talked briefly. She wants to be a full code, full intubation if that should come to be required. I will review the records and I did check her meds and labs and acute orders from Dr. Tee. Subjective/Events-last exam She is still short of breath. She is feeling tired. She denies pain. Objective Exam Vital Signs Vital Signs Date Time Temp Pulse Resp B/P (MAP) Pulse Ox O2 Delivery O2 Flow Rate FiO2 04/22/21 16:07 37.0 04/22/21 15:00 96 23 143/83 95 NIV Bilevel 100.00 04/22/21 11:10 100 Capillary Refill : Less Than 3 Seconds General Appearance: Anxious, Mild Distress (tachypnea) HEENT: Other (wearing BiPAP mask) Respiratory: Decreased Breath Sounds, Respiratory Distress (tachypnea) Cardiovascular: Regular Rate, Rhythm, No Edema, No Murmur Gastrointestinal: Normal Bowel Sounds, Non Tender, Soft Extremity: Normal Inspection, Non Tender, No Pedal Edema Neurologic/Psychiatric: Alert, No Motor/Sensory Deficits Skin: Normal Color, Warm/Dry Results/Procedures Lab Laboratory Tests 04/22/21 03:38 Patient resulted labs reviewed. Imaging: Reviewed Imaging Report Assessment/Plan Assessment and Plan Assess & Plan/Chief Complaint Acute respiratory distress syndrome due to COVID-19 Secondary bacterial pneumonia Hypercoagulable state due to COVID-19 Pulmonary embolism Poor prognosis Goals of care discussion Continue BiPAP Decadron s/p Actemra Doxycycline Therapeutic Lovenox TeleICU following DNR/DNI HTN Hypothyroidism Continue home meds Critical Care Critically Ill Patient Diagnosis/Problems Diagnosis/Problems (1) Acute respiratory distress syndrome (ARDS) due to COVID-19 virus Status: Acute (2) Hypercoagulable state associated with COVID-19 Status: Acute (3) Pulmonary embolism Status: Acute (4) Secondary bacterial pneumonia Status: Acute (5) Poor prognosis Status: Acute (6) Hypothyroidism Status: Chronic (7) HTN (hypertension) Status: Chronic (8) Goals of care, counseling/discussion Status: Acute ABHISHEK TEE MD Apr 22, 2021 17:14
[2021-04-22] MEDS: ENOXAPARIN 100 MG/1 ML (LOVENOX) SYR SC SCH (21:11)
[2021-04-22 21:43] VITALS: BP 129/69
[2021-04-22] MEDS: NS IV 1000 ML 1,000 ML IV SCH (22:53)
[2021-04-23] VITALS (7 sets, daily range): BP systolic 100–146; BP diastolic 7–74
[2021-04-23] MEDS: RT-ALBUTEROL HFA 8.5 GM INHALER IH SCH ×6 (02:38→22:28)
[2021-04-23 03:41] LABS: BASOPHILS # (AUTO) 0.1 10^3/uL (0.0-0.1); BASOPHILS % (AUTO) 1 % (0-10); EOSINOPHILS % (AUTO) 1 % (0-10); MEAN CORPUSCULAR HEMOGLOBIN 30 pg (25-34); MEAN CORPUSCULAR HGB CONC 33 g/dL (32-36)
[2021-04-23 03:43] LABS: EOSINOPHILS # (AUTO) 0.3 10^3/uL (0.0-0.3); HEMATOCRIT 31 % (35-52); HEMOGLOBIN 10.3 g/dL (11.5-16.0); LYMPHOCYTES # (AUTO) 1.4 10^3/uL (1.0-4.0); LYMPHOCYTES % (AUTO) 7 % (12-44); MEAN CORPUSCULAR VOLUME 91 fL (80-99); MEAN PLATELET VOLUME 12.4 fL (9.0-12.2); MONOCYTES # (AUTO) 0.7 10^3/uL (0.0-1.0); MONOCYTES % (AUTO) 4 % (0-12); NEUTROPHILS # (AUTO) 17.2 10^3/uL (1.8-7.8); NEUTROPHILS % (AUTO) 86 % (42-75); PLATELET COUNT 70 10^3/uL (130-400)
[2021-04-23 04:07] LABS: POTASSIUM 3.7 MMOL/L (3.6-5.0)
[2021-04-23 04:08] LABS: CALCIUM 8.2 MG/DL (8.5-10.1)
[2021-04-23 04:10] LABS: INR 1.3 (0.8-1.4); PROTHROMBIN TIME PATIENT 16.4 SEC (12.2-14.7)
[2021-04-23 04:12] LABS: CREATININE SERUM 0.64 MG/DL (0.60-1.30)
[2021-04-23 04:15] LABS: MAGNESIUM 1.9 MG/DL (1.6-2.4)
[2021-04-23] MEDS: POTASSIUM CL 10MEQ/50ML IVPB 50 ML IV SCH (04:23)
[2021-04-23] MEDS: MAGNESIUM 1 GM/100 ML IVPB 100 ML IV SCH (04:24)
[2021-04-23] MEDS: KCL 20 MEQ TAB (K-DUR) PO SCH (04:24)
[2021-04-23] MEDS: LEVOTHYROXINE 100 MCG (LEVOTHROID) TAB PO SCH (04:45)
[2021-04-23] MEDS: NS IV 1000 ML 1,000 ML IV SCH ×2 (04:46→23:02)
[2021-04-23] MEDS: inSUlin ASPART (NovoLOG) 1 UNIT/0.01 ML (CHARGE PER UNIT) SC SCH ×4 (04:46→20:32)
[2021-04-23] MEDS: ACETAMINOPHEN 325 MG TABLET PO PRN (08:51)
[2021-04-23] MEDS: ACYCLOVIR 400 MG TABLET (ZOVIRAX) PO SCH ×2 (08:51→20:31)
[2021-04-23] MEDS: PANTOPRAZOLE 40 MG (PROTONIX) TAB PO SCH (08:51)
[2021-04-23] MEDS: SENNOSIDES 8.6 MG (SENOKOT) TAB PO SCH ×2 (08:52→20:31)
[2021-04-23] MEDS: ENOXAPARIN 100 MG/1 ML (LOVENOX) SYR SC SCH ×2 (08:52→20:31)
[2021-04-23] MEDS: DOCUSATE SODIUM 100 MG (COLACE) CAP PO SCH ×2 (08:52→20:31)
[2021-04-23] MEDS: MICONAZOLE 2% POWDER (DESENEX AF) 90 GM TOP SCH ×2 (08:52→20:33)
--- NOTE | 2021-04-23 08:56 | Physical Therapy Daily Note ---
PT Daily Note-Current Subjective Patient lying supine in bed upon PT arrival, agreeable to treatment. Nurse gave approval for treatment as well. Mental Status Attachments: Oxygen, Fonseca Catheter, IV Transfers SCALE: Activities may be completed with or without assistive devices. 4-Gyxfnclvky-ipkutnh completes the activity by him/herself with no assistance from a helper. 5-Set-up or Clean-up Assistance-helper sets up or cleans up; patient completes activity. Debary assists only prior to or following the activity. 4-Supervision or Touching Assistance-helper provides verbal cues and/or touching/steadying and/or contact guard assistance as patient completes activity. Assistance may be provided throughout the activity or intermittently. 3-Partial/Moderate Assistance-helper does LESS THAN HALF the effort. Debary lifts, holds or supports trunk or limbs, but provides less than half the effort. 2-Substantial/Maximal Assistance-helper does MORE THAN HALF the effort. Debary lifts or holds trunk or limbs and provides more than half the effort. 4-Marishlcv-tuzafo does ALL the effort. Patient does none of the effort to complete the activity. Or, the assistance of 2 or more helpers is required for the patient to complete the activity. If activity was not attempted, code reason: 7-Patient Refused. 9-Not Applicable-not attempted and the patient did not perform the activity before the current illness, exacerbation or injury. 10-Not Attempted due to Environmental Limitations-(lack of equipment, weather restraints, etc.). 88-Not Attempted due to Medical Conditions or Safety Concerns. Roll Left & Right (QC): 3 Sit to Lying (QC): 3 Lying to Sitting/Side of Bed(Q: 3 Gait Training Does the Patient Walk?: No and Walking Goal IS indicated Exercises Supine Ex: Ankle pumps, Quad Set, Heel Slides, Short Arc Quads, Straight leg raise, Hip abd/add (20) Assessment Current Status: Poor Progress, Fair Progress Patient lying in bed upon PT arrival, both patient and nurse gave approval for treatment. Patient performs all observed bed mobility and transfers with min/mod A. Patient requires minimal assistance for stability upon sitting at edge of bed. Patient tolerates sitting at edge of bed x 5 minutes with sats staying around 85-86%. At ~ 5 minutes O2 sats slowly decline to 82% and patient was transferred back to bed with mod A. Patient performed bilateral LE AAROM as listed above. Patient rolled onto her right side with pillows propped to support her . Patient sidelying in bed post treatment with all needs met, nursing notified, call light in reach. PT Short Term Goals Short Term Goals Time Frame: Apr 22, 2021 Roll Left & Right: 5 Sit to lyin Lying to sitting on side of be: 5 Sit to stand: 5 Chair/sna-vr-eatud transfer: 5 Toilet transfer: 5 Walk 10 feet: 4 Walk 50 feet with two turns: 4 Walk 150 feet: 4 PT Apple Peeler Operator Goals Apple Peeler Operator Goals PT Mcfp Goals Time Frame: May 02, 2021 Roll Left & Right (QC): 6 Sit to Lying (QC): 6 Lying-Sitting on Side/Bed(QC): 6 Sit to Stand (QC): 6 Chair/Xtt-by-Lsfvz Xfer(QC): 6 Toilet Transfer (QC): 6 Does the Patient Walk: Yes Walk 10 feet (QC): 5 Walk 50ft with 2 Turns (QC): 5 Walk 150 ft (QC): 5 1 Step (curb) (QC): 4 4 Steps (QC): 4 PT Plan Treatment/Plan Treatment Plan: Continue Plan of Care Treatment Plan: Bed Mobility, Education, Functional Activity Nicola, Functional Strength, Group Therapy, Gait, Safety, Therapeutic Exercise, Transfers Treatment Duration: May 31, 2021 Frequency: 6 times per week Estimated Hrs Per Day: .25 hour per day Safety Risks/Education Patient Education: Transfer Techniques Teaching Recipient: Patient Teaching Methods: Demonstration, Discussion Response to Teaching: Reinforcement Needed Time/GCodes Time In: 816 Time Out: 842 Total Billed Treatment Time: 26 Total Billed Treatment Visit, Ex, SUDHAKAR TYSON PT Apr 23, 2021 08:56
[2021-04-23] MEDS ORDERED: FUROSEMIDE 40 MG/4 ML INJ (LASIX) IVP NR ×2 (09:41→10:10)
--- NOTE | 2021-04-23 09:57 | Tele-ICU Progress Note ---
Subjective Date Seen by a Provider: Apr 23, 2021 Time Seen by a Provider: 09:56 Subjective/Events-last exam SHE FAILED VPOTHERM TRIAL. BACK ON BIPAP. LEGS ARE SWOLLEN PER RN Sepsis Event Evaluation Height, Weight, BMI Height: '" Weight: lbs. oz. kg; 26.21 BMI Method: Exam Exam Patient acknowledged, consented, and participated in this virtual visit which was conducted using real time audio/video Vital Signs Date Time Temp Pulse Resp B/P (MAP) Pulse Ox O2 Delivery O2 Flow Rate FiO2 04/23/21 07:58 83 29 89 75.00 04/23/21 07:45 36.5 04/23/21 07:00 90 04/23/21 06:00 89 27 139/72 94 NIV Bilevel 100.00 04/23/21 05:00 87 30 136/65 89 NIV Bilevel 95.00 04/23/21 05:00 NIV Bilevel 100.00 04/23/21 04:13 94 NIV Bilevel 95 04/23/21 04:00 88 26 130/60 95 NIV Bilevel 95.00 04/23/21 03:00 81 26 114/56 93 NIV Bilevel 95.00 04/23/21 02:44 37.0 NIV Bilevel 95.00 04/23/21 02:38 83 27 89 100.00 04/23/21 02:00 80 25 109/65 95 NIV Bilevel 100.00 04/23/21 01:00 86 27 121/66 93 NIV Bilevel 100.00 04/23/21 01:00 84 04/23/21 00:14 90 NIV Bilevel 100 04/23/21 00:13 36.9 NIV Bilevel 100.00 04/23/21 00:00 82 25 135/72 90 NIV Bilevel 100.00 04/22/21 23:00 82 26 116/57 96 NIV Bilevel 100.00 04/22/21 22:00 84 23 111/55 95 NIV Bilevel 100.00 04/22/21 21:43 86 28 89 100.00 04/22/21 21:00 90 25 129/69 94 NIV Bilevel 100.00 04/22/21 20:20 94 NIV Bilevel 100 04/22/21 20:04 36.8 04/22/21 20:00 91 27 132/67 93 NIV Bilevel 100.00 04/22/21 19:00 NIV Bilevel 100.00 04/22/21 19:00 82 25 114/59 88 NIV Bilevel 100.00 04/22/21 19:00 82 04/22/21 18:20 89 Vapotherm 40.00 100 04/22/21 18:00 81 23 119/62 94 NIV Bilevel 100.00 04/22/21 17:00 82 24 120/67 95 NIV Bilevel 100.00 04/22/21 16:25 92 NIV Bilevel 100 04/22/21 16:07 37.0 04/22/21 16:00 85 24 127/72 95 NIV Bilevel 100.00 04/22/21 15:00 96 23 143/83 95 NIV Bilevel 100.00 04/22/21 14:25 89 26 97 95.00 04/22/21 14:00 88 129/69 96 NIV Bilevel 100.00 04/22/21 13:00 85 21 140/78 95 NIV Bilevel 100.00 04/22/21 13:00 88 04/22/21 12:00 87 25 149/83 94 NIV Bilevel 100.00 04/22/21 11:20 36.7 04/22/21 11:10 92 NIV Bilevel 100 04/22/21 11:00 86 24 141/78 91 NIV Bilevel 100.00 04/22/21 10:24 89 26 89 100.00 04/22/21 10:00 80 26 148/78 89 NIV Bilevel 100.00 I & O 04/23/21 07:00 Intake Total 2130 ml Output Total 810 ml Balance 1320 ml Height & Weight Height: '" Weight: lbs. oz. kg; 26.21 BMI Method: General Appearance: Anxious, Mild Distress (tachypnea) HEENT: Other (wearing BiPAP mask) Neck: Full Range of Motion, Normal Inspection, Non Tender Respiratory: Decreased Breath Sounds, Respiratory Distress (tachypnea) Cardiovascular: Regular Rate, Rhythm, No Edema, No Murmur Capillary Refill: Less Than 3 Seconds Extremity: Normal Inspection, Non Tender, No Pedal Edema Neurologic/Psychiatric: Alert, No Motor/Sensory Deficits Skin: Normal Color, Warm/Dry Results Lab Laboratory Tests 04/22/21 03:38 04/23/21 03:30 Assessment/Plan Assessment/Plan Tele-ICU Physician , Progress Note ) Available chart/ vitals / labs / Images reviewed Video assessment done using teleICU camera, rest of exam as per RN Discussed with RN , EXAM PER RN FEBRILE FiO2 - I/O = even Drips: ns 50 Pressors: , hemodynamically stable Consultants: Hospital course: (04/14) 80 y/o female admitted for COVID+, transfer from other facility - , VT 20L 70% 04/15-- VT 50L 100% , 04/16 - bipap 13/12 65% at night , VT 70L 100% 04/18 - + PE 04/20 - Bipap 15/10 90% , PLT ?- arixtra on hold, DIURESIS X1 with good resuts , but no change in respiratory status 04/22 - 100% bipap, HIT negative , back on lovenox 04/23. FAILED VAPOTHERM TRIAL BACK ON BIPAP 15/10 WITH 100%. A/P AHRF / ARDS due to severe COVID19 ( CTA neg for pe 04/13 - in other facility , reportedly -Bipap 15/10 100 % -prone position if able - on SIDE - conservative fluid strategy (aim for even or negative fluid balance - DIURES IS X1 with good resuts , but no change in respiratory status WILL GIVE ANOTHER ADDITIONAL DOSE OF LASIX B/O LEG SWELLING. NWUG-Ykqaymssqoa-7/COVID-19 PNA ( Symptom onset unknown now DX unvaccinted -Dexamethasone -actemrta 04/15 ( acyclovir 30 d ) -Hypercoagulable state -> lovenox ppx dose , CTA neg for pe 04/13 - in other facility ,, CT 04/18 + for PE , US LE - negative for DVT - Monitor for superimposed bact PNA -doxy -04/18 - 04/22 ? 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 - not eating for 48 h vs TF Analgesia: Anxiety/ delirium VTE Prophylaxis: urszula 40 Stress Ulcer Prophylaxis: po Plans in collaboration with bedside consultants and IM MDs. Discussed with RN to reach out if any questions or concerns A total of 20 minutes of critical care time was devoted to this patient today, required to treat and/or prevent further deterioration of critical care condition ( as above ) . Critical Care: Critically Ill Patient BETY MOREL MD Apr 23, 2021 09:57
[2021-04-23] MEDS ORDERED: fentaNYL INJ 100 MCG/2 ML AMP IVP PRN (10:00)
--- NOTE | 2021-04-23 11:21 | Occupational Ther Daily Note ---
OT Current Status-Daily Note Subjective Pt alert, lying in bed. Nrsg okayed pt to be seen by therapy, no OOB and only minimal movement. Mental Status/Objective Patient Orientation: Person, Unable to Assess Attachments: Fonseca Catheter, IV, Oxygen (BiPap 75), Telemetry ADL-Treatment Pt incontinent of BM, nrsg aware. With assist from nrsg, placed pt on bed chen. Pt able to assist with roll towards R side. Therapy Code Descriptions/Definitions Functional [place] Measure: 0=Not Assessed/NA 4=Minimal Assistance 1=Total Assistance 5=Supervision or Setup 2=Maximal Assistance 6=Modified [place] 3=Moderate Assistance 7=Complete IndependenceSCALE: Activities may be completed with or without assistive devices. 9-Fawcrljmsz-yscsfrp completes the activity by him/herself with no assistance from a helper. 5-Set-up or Clean-up Assistance-helper sets up or cleans up; patient completes activity. [place] assists only prior to or following the activity. 4-Supervision or Touching Assistance-helper provides verbal cues and/or touching/steadying and/or contact guard assistance as patient completes activity. Assistance may be provided throughout the activity or intermittently. 3-Partial/Moderate Assistance-helper does LESS THAN HALF the effort. [place] lifts, holds or supports trunk or limbs, but provides less than half the effort. 2-Substantial/Maximal Assistance-helper does MORE THAN HALF the effort. [place] lifts or holds trunk or limbs and provides more than half the effort. 7-Ltpoemwew-chchzh does ALL the effort. Patient does none of the effort to compl ete the activity. Or, the assistance of 2 or more helpers is required for the patient to complete the activity. If activity was not attempted, code reason: 7-Patient Refused. 9-Not Applicable-not attempted and the patient did not perform the activity before the current illness, exacerbation or injury. 10-Not Attempted due to Environmental Limitations-(lack of equipment, weather restraints, etc.). 88-Not Attempted due to Medical Conditions or Safety Concerns. Other Treatment Pt able to complete AAROM of B UE in all planes though fatigued quickly, 1 set 10 reps. Maintain O2 levels at 91% during movement. After session, pt lying in bed with call light/phone in reach. Nrsg in room. OT Custodial Goals Stoner Out Goals Time Frame: May 09, 2021 Eating (QC): 6 Oral Hygiene (QC): 5 Toileting Hygiene (QC): 4 Shower/Bathe Self (QC): 4 Upper Body Dressing (QC): 5 Lower Body Dressing (QC): 4 On/Off Footwear (QC): 4 Additional Goals: 1-Demonstrate ADL Tasks, 2-Verbalize Understanding, 3- ImproveStrength/Nicola 1=Demonstrate adherence to instructed precautions during ADL tasks. 2=Patient will verbalize/demonstrate understanding of assistive devices/modific ations for ADL. 3=Patient will improve strength/tolerance for activity to enable patient to perform ADL's. OT Education/Plan Problem List/Assessment Assessment: Decreased Activ Tolerance, Decreased UE Strength, Impaired Bed Mobility, Impaired Self-Care Skills Pt would benefit from skilled OT services in order to increase BUE strength and activity tolerance, increase independence and safety with ADLs, and improve pulmonary function for safe return home. Discharge Recommendations Plan/Recommendations: Continue POC Treatment Plan/Plan of Care Patient would benefit from OT for education, treatment and training to promote independence in ADL's, mobility, safety and/or upper extremity function for ADL's. Plan of Care: ADL Retraining, Functional Mobility, UE Funct Exercise/Act Treatment Duration: May 09, 2021 Frequency: 3 times per week (3-5 times per week) Estimated Hrs Per Day: .25 hour per day Agreement: Yes Rehab Potential: Good Time/GCodes Start Time: 10:13 Stop Time: 10:26 Total Time Billed (hr/min): 13 Billed Treatment Time 1 visit-EX 1 (13 min) CRUZ MCNEAL Apr 23, 2021 11:21
--- NOTE | 2021-04-23 12:35 | Progress Note - Hospitalist ---
Subjective HPI/CC On Admission Date Seen by Provider: Apr 23, 2021 Time Seen by Provider: 12:31 CC: Acute hypoxic respiratory failure due to Covid-19 pneumonia from [place], [place] HPI: This is a female patient who was flown in from [place], [place] due to acute hypoxic respiratory failure due to Covid-19 pneumonia. Details are minimal considering she is in mild respiratory distress. She is prone, she is on Vapotherm and we talked briefly. She wants to be a full code, full intubation if that should come to be required. I will review the records and I did check her meds and labs and acute orders from Dr. Tee. Subjective/Events-last exam She is tired. She is sleeping. She denies pain. She is still short of breath. Objective Exam Vital Signs Vital Signs Date Time Temp Pulse Resp B/P (MAP) Pulse Ox O2 Delivery O2 Flow Rate FiO2 04/23/21 11:20 37.1 04/23/21 11:00 90 26 120/66 91 NIV Bilevel 100.00 04/23/21 04:13 95 Capillary Refill : Less Than 3 Seconds General Appearance: WD/WN, Mild Distress (tachypnea) Respiratory: Decreased Breath Sounds, Respiratory Distress (tachypnea), Other (wearing BiPAP) Cardiovascular: Regular Rate, Rhythm, No Edema, No Murmur Gastrointestinal: Normal Bowel Sounds, Non Tender, Soft Extremity: Normal Inspection, Non Tender, No Pedal Edema Neurologic/Psychiatric: Alert, Depressed Affect, Motor Weakness Skin: Normal Color, Warm/Dry Results/Procedures Lab Laboratory Tests 04/23/21 03:30 Patient resulted labs reviewed. Imaging: Reviewed Imaging Report Assessment/Plan Assessment and Plan Assess & Plan/Chief Complaint Acute respiratory distress syndrome due to COVID-19 Secondary bacterial pneumonia Hypercoagulable state due to COVID-19 Pulmonary embolism Poor prognosis Goals of care discussion Continue BiPAP, unable to tolerate Vapotherm Decadron s/p Actemra Doxycycline Therapeutic Lovenox TeleICU following DNR/DNI Consider beginning TPN HTN Hypothyroidism Continue home meds Critical Care Critically Ill Patient Diagnosis/Problems Diagnosis/Problems (1) Acute respiratory distress syndrome (ARDS) due to COVID-19 virus Status: Acute (2) Hypercoagulable state associated with COVID-19 Status: Acute (3) Pulmonary embolism Status: Acute (4) Secondary bacterial pneumonia Status: Acute (5) Poor prognosis Status: Acute (6) Hypothyroidism Status: Chronic (7) HTN (hypertension) Status: Chronic (8) Goals of care, counseling/discussion Status: Acute ABHISHEK TEE MD Apr 23, 2021 12:35
[2021-04-23] MEDS: DexMEDEtomidine 250 ML DRIP 250 ML IV SCH (17:13)
[2021-04-24] MEDS: RT-ALBUTEROL HFA 8.5 GM INHALER IH SCH ×6 (02:31→22:33)
[2021-04-24 02:32] VITALS: BP 105/63
[2021-04-24 04:31] LABS: BASOPHILS # (AUTO) 0.1 10^3/uL (0.0-0.1); BASOPHILS % (AUTO) 1 % (0-10); EOSINOPHILS # (AUTO) 0.2 10^3/uL (0.0-0.3); EOSINOPHILS % (AUTO) 1 % (0-10); HEMATOCRIT 27 % (35-52); HEMOGLOBIN 8.9 g/dL (11.5-16.0); LYMPHOCYTES # (AUTO) 1.5 10^3/uL (1.0-4.0); LYMPHOCYTES % (AUTO) 8 % (12-44); MEAN CORPUSCULAR HEMOGLOBIN 31 pg (25-34); MEAN CORPUSCULAR HGB CONC 34 g/dL (32-36); MEAN CORPUSCULAR VOLUME 91 fL (80-99); MEAN PLATELET VOLUME 12.8 fL (9.0-12.2); MONOCYTES # (AUTO) 0.7 10^3/uL (0.0-1.0); MONOCYTES % (AUTO) 4 % (0-12); NEUTROPHILS # (AUTO) 14.8 10^3/uL (1.8-7.8); NEUTROPHILS % (AUTO) 85 % (42-75); PLATELET COUNT 76 10^3/uL (130-400); WHITE BLOOD COUNT 17.5 10^3/uL (4.3-11.0)
[2021-04-24 04:51] LABS: ALBUMIN 2.5 GM/DL (3.2-4.5); POTASSIUM 3.1 MMOL/L (3.6-5.0)
[2021-04-24 04:54] LABS: TOTAL PROTEIN 4.3 GM/DL (6.4-8.2)
[2021-04-24 04:56] LABS: BILIRUBIN,TOTAL 0.6 MG/DL (0.1-1.0)
[2021-04-24 04:57] LABS: PHOSPHORUS 2.6 MG/DL (2.3-4.7)
[2021-04-24 04:58] LABS: CREATININE SERUM 0.54 MG/DL (0.60-1.30)
[2021-04-24 05:00] LABS: MAGNESIUM 1.6 MG/DL (1.6-2.4)
[2021-04-24 05:02] LABS: INR 1.4 (0.8-1.4); PROTHROMBIN TIME PATIENT 17.4 SEC (12.2-14.7)
[2021-04-24] MEDS: POTASSIUM CL 10MEQ/50ML IVPB 50 ML IV SCH (05:06)
[2021-04-24] MEDS: MAGNESIUM 1 GM/100 ML IVPB 100 ML IV SCH ×3 (05:06→06:38)
[2021-04-24] MEDS: inSUlin ASPART (NovoLOG) 1 UNIT/0.01 ML (CHARGE PER UNIT) SC SCH ×4 (05:07→21:47)
[2021-04-24] MEDS: KCL 20 MEQ TAB (K-DUR) PO SCH (05:07)
[2021-04-24] MEDS ORDERED: POTASSIUM CL 10MEQ/50ML IVPB 50 ML IV ONE ×4 (05:30→08:30)
[2021-04-24] MEDS: LEVOTHYROXINE 100 MCG (LEVOTHROID) TAB PO SCH (05:34)
[2021-04-24] MEDS: NS IV 1000 ML 1,000 ML IV SCH ×2 (06:39→16:58)
[2021-04-24 07:27] VITALS: BP 111/56
[2021-04-24] MEDS ORDERED: meTOprolol 5 MG/5 ML (LOPRESSOR) VIAL IV ONE (08:15)
--- NOTE | 2021-04-24 08:20 | Tele-ICU Progress Note ---
Subjective Date Seen by a Provider: Apr 24, 2021 Time Seen by a Provider: 08:20 Subjective/Events-last exam PT HAD S TACH EARLIER. LOPRESSOR 5MG GIVEN. HR DOWN TO 75/MT. STILL ON BIPAP Review of Systems ROS PER RN Sepsis Event Evaluation Height, Weight, BMI Height: '" Weight: lbs. oz. kg; 26.21 BMI Method: Exam Exam Patient acknowledged, consented, and participated in this virtual visit which was conducted using real time audio/video Vital Signs Date Time Temp Pulse Resp B/P (MAP) Pulse Ox O2 Delivery O2 Flow Rate FiO2 04/24/21 08:00 36.6 04/24/21 07:27 78 25 91 75.00 04/24/21 07:04 81 04/24/21 06:00 80 26 110/50 90 NIV Bilevel 70.00 04/24/21 05:00 83 140/60 84 NIV Bilevel 70.00 04/24/21 04:00 81 28 132/79 90 NIV Bilevel 70.00 04/24/21 04:00 36.2 NIV Bilevel 70.00 04/24/21 04:00 90 NIV Bilevel 70 04/24/21 03:00 76 26 115/85 91 NIV Bilevel 70.00 04/24/21 02:32 80 22 90 70.00 04/24/21 02:00 77 24 105/63 91 NIV Bilevel 70.00 04/24/21 01:00 79 04/24/21 01:00 86 27 114/58 90 NIV Bilevel 70.00 04/24/21 00:00 36.4 NIV Bilevel 70.00 04/23/21 23:59 90 NIV Bilevel 70 04/23/21 23:00 80 26 104/71 91 NIV Bilevel 80.00 04/23/21 22:28 81 32 91 70.00 04/23/21 22:00 81 27 108/63 92 NIV Bilevel 80.00 04/23/21 21:00 81 27 116/60 92 NIV Bilevel 80.00 04/23/21 20:39 87 91 100 04/23/21 20:15 NIV Bilevel 80.00 04/23/21 20:00 89 NIV Bilevel 70.00 04/23/21 20:00 90 NIV Bilevel 70 04/23/21 20:00 86 23 149/84 84 NIV Bilevel 70.00 04/23/21 20:00 36.2 04/23/21 19:00 86 23 129/68 91 NIV Bilevel 100.00 04/23/21 19:00 87 04/23/21 18:56 87 32 91 65.00 04/23/21 18:00 88 27 146/74 87 NIV Bilevel 100.00 04/23/21 17:13 81 108/54 04/23/21 17:00 80 24 108/55 91 NIV Bilevel 100.00 04/23/21 16:00 81 24 108/54 91 NIV Bilevel 100.00 04/23/21 16:00 93 NIV Bilevel 80 04/23/21 16:00 36.7 04/23/21 15:00 80 24 99/53 91 NIV Bilevel 100.00 04/23/21 14:55 80 23 92 60.00 04/23/21 14:00 81 25 101/54 95 NIV Bilevel 100.00 04/23/21 13:00 85 04/23/21 13:00 87 25 107/69 92 NIV Bilevel 100.00 04/23/21 12:00 88 26 106/60 93 NIV Bilevel 100.00 04/23/21 12:00 94 NIV Bilevel 100 04/23/21 11:20 37.1 04/23/21 11:00 90 26 120/66 91 NIV Bilevel 100.00 04/23/21 10:44 97 31 90 75.00 04/23/21 10:00 96 29 130/70 92 NIV Bilevel 100.00 04/23/21 09:00 107 28 164/77 76 NIV Bilevel 100.00 I & O 04/24/21 07:00 Intake Total 550 ml Output Total 2525 ml Balance -1975 ml Height & Weight Height: '" Weight: lbs. oz. kg; 26.21 BMI Method: General Appearance: Anxious, Mild Distress (tachypnea) HEENT: Other (wearing BiPAP mask) Neck: Full Range of Motion, Normal Inspection, Non Tender Respiratory: Decreased Breath Sounds, Respiratory Distress (tachypnea) Cardiovascular: Regular Rate, Rhythm, No Edema, No Murmur Capillary Refill: Less Than 3 Seconds Extremity: Normal Inspection, Non Tender, No Pedal Edema Neurologic/Psychiatric: Alert, No Motor/Sensory Deficits Skin: Normal Color, Warm/Dry Other comments PE PER RN Results Lab Laboratory Tests 04/23/21 03:30 04/24/21 04:23 Assessment/Plan Assessment/Plan Tele-ICU Physician , Progress Note ) Available chart/ vitals / labs / Images reviewed Video assessment done using teleICU camera, rest of exam as per RN Discussed with RN , EXAM PER RN FEBRILE FiO2 - I/O = 1700/2525 Drips: Pressors: , hemodynamically stable Consultants: Hospital course: (04/14) 80 y/o female admitted for COVID+, transfer from other facility - , VT 20L 70% 04/15-- VT 50L 100% , 04/16 - bipap / 65% at night , VT 70L 100% 04/18 - + PE 04/20 - Bipap 15/10 90% , PLT ?- arixtra on hold, DIURESIS X1 with good resuts , but no change in respiratory status 04/22 - 100% bipap, HIT negative , back on lovenox 04/23. FAILED VAPOTHERM TRIAL BACK ON BIPAP 15/10 WITH 100%. SAT S 93%. 04/24 BIPAP 15/10 A/P AHRF / ARDS due to severe COVID19 ( CTA neg for pe 04/13 - in other facility , reportedly -Bipap 15/10 100 % -prone position if able - on SIDE - conservative fluid strategy (aim for even or negative fluid balance - DIURESIS X1 with good resuts , but no change in respiratory status VOAY-Dxmthqhektf-5/COVID-19 PNA ( Symptom onset unknown now DX unvaccinted -Dexamethasone -actemrta 04/15 ( acyclovir 30 d ) -Hypercoagulable state -> lovenox ppx dose , CTA neg for pe 04/13 - in other facility ,, CT 04/18 + for PE , US LE - negative for DVT - Monitor for superimposed bact PNA -doxy -04/18 - 04/22 ? 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 Discussed with RN to reach out if any questions or concerns A total of 20 minutes of critical care time was devoted to this patient today, required to treat and/or prevent further deterioration of critical care condition ( as above ) . Critical Care: Critically Ill Patient Time spent with patient (mins): 20 BETY MOREL MD Apr 24, 2021 08:20
[2021-04-24] MEDS: ENOXAPARIN 100 MG/1 ML (LOVENOX) SYR SC SCH ×2 (08:25→21:46)
[2021-04-24] MEDS: PANTOPRAZOLE 40 MG (PROTONIX) VIAL IV SCH (08:27)
[2021-04-24] MEDS: ACYCLOVIR 400 MG TABLET (ZOVIRAX) PO SCH ×2 (08:27→21:46)
[2021-04-24] MEDS: DOCUSATE SODIUM 100 MG (COLACE) CAP PO SCH ×2 (08:29→21:47)
[2021-04-24] MEDS: SENNOSIDES 8.6 MG (SENOKOT) TAB PO SCH ×2 (08:29→21:48)
[2021-04-24] MEDS: MICONAZOLE 2% POWDER (DESENEX AF) 90 GM TOP SCH ×2 (08:29→21:47)
--- NOTE | 2021-04-24 09:42 | Physical Therapy Daily Note ---
PT Daily Note-Current Subjective Patient in bed pre tx, agrees to PT, has no complaints of pain. Appearance Patient in bed post tx with nurse call, phone, tray, all needs met. Mental Status Patient Orientation: Person, Place, Situation Attachments: Oxygen (bipap), Fonseca Catheter, IV Transfers SCALE: Activities may be completed with or without assistive devices. 3-Onoxjzfbpm-qnshewt completes the activity by him/herself with no assistance from a helper. 5-Set-up or Clean-up Assistance-helper sets up or cleans up; patient completes activity. [place] assists only prior to or following the activity. 4-Supervision or Touching Assistance-helper provides verbal cues and/or touching/steadying and/or contact guard assistance as patient completes activity. Assistance may be provided throughout the activity or intermittently. 3-Partial/Moderate Assistance-helper does LESS THAN HALF the effort. [place] lifts, holds or supports trunk or limbs, but provides less than half the effort. 2-Substantial/Maximal Assistance-helper does MORE THAN HALF the effort. [place] lifts or holds trunk or limbs and provides more than half the effort. 4-Spusvgfxc-vvzknc does ALL the effort. Patient does none of the effort to complete the activity. Or, the assistance of 2 or more helpers is required for the patient to complete the activity. If activity was not attempted, code reason: 7-Patient Refused. 9-Not Applicable-not attempted and the patient did not perform the activity before the current illness, exacerbation or injury. 10-Not Attempted due to Environmental Limitations-(lack of equipment, weather restraints, etc.). 88-Not Attempted due to Medical Conditions or Safety Concerns. Roll Left & Right (QC): 4 Sit to Lying (QC): 4 Lying to Sitting/Side of Bed(Q: 4 Patient performs supine to sit with SBA, she is able to sit for just a few minutes and perform some LE exercise before needing to lay back down due to fatigue. Her O2 dropped to 87% but stayed there the whole time until she layed back down and it came back up into the 90's. Exercises Seated Therapy Exercises: Ankle pumps, Long arc quads Seated Reps: 20 Treatments bed mobility, sitting, LE strengthening Assessment Current Status: Fair Progress Patient was able to do a little more with less drop in O2. PT Short Term Goals Short Term Goals Time Frame: Apr 22, 2021 Roll Left & Right: 5 Sit to lyin Lying to sitting on side of be: 5 Sit to stand: 5 Chair/zvo-rk-sjbzk transfer: 5 Toilet transfer: 5 Walk 10 feet: 4 Walk 50 feet with two turns: 4 Walk 150 feet: 4 PT Financial Reserve Clerk Goals Half-Way Goals PT Half-Way Goals Time Frame: May 02, 2021 Roll Left & Right (QC): 6 Sit to Lying (QC): 6 Lying-Sitting on Side/Bed(QC): 6 Sit to Stand (QC): 6 Chair/Hni-yh-Nabsu Xfer(QC): 6 Toilet Transfer (QC): 6 Does the Patient Walk: Yes Walk 10 feet (QC): 5 Walk 50ft with 2 Turns (QC): 5 Walk 150 ft (QC): 5 1 Step (curb) (QC): 4 4 Steps (QC): 4 PT Plan Problem List Problem List: Activity Tolerance, Functional Strength, Safety, Balance, Gait, Transfer, Bed Mobility, ROM Treatment/Plan Treatment Plan: Continue Plan of Care Treatment Plan: Bed Mobility, Education, Functional Activity Nicola, Functional Strength, Group Therapy, Gait, Safety, Therapeutic Exercise, Transfers Treatment Duration: May 31, 2021 Frequency: 6 times per week Estimated Hrs Per Day: .25 hour per day Safety Risks/Education Patient Education: Correct Positioning, Safety Issues Teaching Recipient: Patient Teaching Methods: Demonstration, Discussion Response to Teaching: Reinforcement Needed Time/GCodes Time In: 908 Time Out: 921 Total Billed Treatment Time: 13 Total Billed Treatment 1 visit FA AYAN ROTHMAN PT Apr 24, 2021 09:42
--- NOTE | 2021-04-24 09:53 | Occupational Ther Daily Note ---
OT Current Status-Daily Note Subjective Pt alert, lying in bed. Pt agrees to therapy. Mental Status/Objective Patient Orientation: Person, Place, Time, Situation Attachments: IV, Oxygen (BiPap 100%), Telemetry ADL-Treatment Therapy Code Descriptions/Definitions Functional [place] Measure: 0=Not Assessed/NA 4=Minimal Assistance 1=Total Assistance 5=Supervision or Setup 2=Maximal Assistance 6=Modified [place] 3=Moderate Assistance 7=Complete IndependenceSCALE: Activities may be completed with or without assistive devices. 9-Lzfulpzsyn-gtylujb completes the activity by him/herself with no assistance from a helper. 5-Set-up or Clean-up Assistance-helper sets up or cleans up; patient completes activity. [place] assists only prior to or following the activity. 4-Supervision or Touching Assistance-helper provides verbal cues and/or touching/steadying and/or contact guard assistance as patient completes activity. Assistance may be provided throughout the activity or intermittently. 3-Partial/Moderate Assistance-helper does LESS THAN HALF the effort. [place] lifts, holds or supports trunk or limbs, but provides less than half the effort. 2-Substantial/Maximal Assistance-helper does MORE THAN HALF the effort. [place] lifts or holds trunk or limbs and provides more than half the effort. 7-Gitbkoicz-ikbsud does ALL the effort. Patient does none of the effort to complete the activity. Or, the assistance of 2 or more helpers is required for the patient to complete the activity. If activity was not attempted, code reason: 7-Patient Refused. 9-Not Applicable-not attempted and the patient did not perform the activity before the current illness, exacerbation or injury. 10-Not Attempted due to Environmental Limitations-(lack of equipment, weather restraints, etc.). 88-Not Attempted due to Medical Conditions or Safety Concerns. Other Treatment Patient performs supine to sit with SBA, she is able to sit for just a few minutes and perform some LE exercise before needing to lay back down due to fatigue. Her O2 dropped to 87% but stayed there the whole time until she layed back down and it came back up into the 90's. After session, pt lying in bed with call light/phone in reach. All needs met in room. OT Supervisor Edging Goals [facility] Goals Time Frame: May 09, 2021 Eating (QC): 6 Oral Hygiene (QC): 5 Toileting Hygiene (QC): 4 Shower/Bathe Self (QC): 4 Upper Body Dressing (QC): 5 Lower Body Dressing (QC): 4 On/Off Footwear (QC): 4 Additional Goals: 1-Demonstrate ADL Tasks, 2-Verbalize Understanding, 3- ImproveStrength/Nicola 1=Demonstrate adherence to instructed precautions during ADL tasks. 2=Patient will verbalize/demonstrate understanding of assistive devices/modifications for ADL. 3=Patient will improve strength/tolerance for activity to enable patient to perform ADL's. OT Education/Plan Problem List/Assessment Assessment: Decreased Activ Tolerance, Impaired Self-Care Skills Pt would benefit from skilled OT services in order to increase BUE strength and activity tolerance, increase independence and safety with ADLs, and improve pulmonary function for safe return home. Discharge Recommendations Plan/Recommendations: Continue POC Treatment Plan/Plan of Care Patient would benefit from OT for education, treatment and training to promote independence in ADL's, mobility, safety and/or upper extremity function for ADL's. Plan of Care: ADL Retraining, Functional Mobility, UE Funct Exercise/Act Treatment Duration: May 09, 2021 Frequency: 3 times per week (3-5 times per week) Estimated Hrs Per Day: .25 hour per day Agreement: Yes Rehab Potential: Good Time/GCodes Start Time: :09 Stop Time: :22 Total Time Billed (hr/min): 13 Billed Treatment Time 1 visit-FA 1 (13 min) CRUZ MCNEAL Apr 24, 2021 09:53
--- NOTE | 2021-04-24 10:36 | Diagnostic Imaging Report ---
INDICATION: Respiratory distress. TIME OF EXAM: 9:11 AM CORRELATION is made with prior chest 04/21/2021. Right upper extremity PICC line has its tip overlying the SVC right atrial junction. Extensive bilateral pulmonary infiltrates persist. No effusion or pneumothorax is seen. Heart size is stable. IMPRESSION: Stable bilateral pulmonary infiltrates since the exam 3 days earlier. Dictated by: Dictated on workstation # [id number]
[2021-04-24 10:45] VITALS: BP 103/82
[2021-04-24 14:12] VITALS: BP 99/59
[2021-04-24] MEDS ORDERED: [UNRECOGNIZED DRUG - OTHER] IV SCH ×9 (17:00)
[2021-04-24] MEDS ORDERED: SODIUM ACETATE IV SCH ×9 (17:00)
[2021-04-24] MEDS ORDERED: POTASSIUM CHLORIDE IV SCH ×9 (17:00)
[2021-04-24 18:41] VITALS: BP 99/50
--- NOTE | 2021-04-24 19:05 | Progress Note - Hospitalist ---
Subjective HPI/CC On Admission Date Seen by Provider: Apr 24, 2021 Time Seen by Provider: 09:20 CC: Acute hypoxic respiratory failure due to Covid-19 pneumonia from [place], [place] HPI: This is a female patient who was flown in from [place], [place] due to acute hypoxic respiratory failure due to Covid-19 pneumonia. Details are minimal considering she is in mild respiratory distress. She is prone, she is on Vapotherm and we talked briefly. She wants to be a full code, full intubation if that should come to be required. I will review the records and I did check her meds and labs and acute orders from Dr. Tee. Subjective/Events-last exam She is still feeling weak. She is feeling thirsty. She denies pain. Objective Exam Vital Signs Vital Signs Date Time Temp Pulse Resp B/P (MAP) Pulse Ox O2 Delivery O2 Flow Rate FiO2 04/24/21 18:41 76 28 95 80.00 04/24/21 18:35 NIV Bilevel 04/24/21 18:00 99/50 04/24/21 16:16 90 04/24/21 16:00 36.4 Capillary Refill : Less Than 3 Seconds General Appearance: WD/WN, Anxious, Mild Distress Respiratory: Decreased Breath Sounds, Respiratory Distress (tachypnea) Cardiovascular: No Murmur, Irregularly Irregular Gastrointestinal: Normal Bowel Sounds, Soft Extremity: Normal Inspection, No Pedal Edema Neurologic/Psychiatric: Alert, Depressed Affect Skin: Normal Color, Warm/Dry Results/Procedures Lab Laboratory Tests 04/24/21 04:23 Patient resulted labs reviewed. Imaging: Reviewed Imaging Report Assessment/Plan Assessment and Plan Assess & Plan/Chief Complaint Acute respiratory distress syndrome due to COVID-19 Secondary bacterial pneumonia Hypercoagulable state due to COVID-19 Pulmonary embolism Poor prognosis Goals of care discussion Continue BiPAP, unable to tolerate Vapotherm Decadron s/p Actemra Acyclovir s/p Doxycycline Therapeutic Lovenox TeleICU following DNR/DNI HTN Hypothyroidism Continue home meds Critical Care Critically Ill Patient Diagnosis/Problems Diagnosis/Problems (1) Acute respiratory distress syndrome (ARDS) due to COVID-19 virus Status: Acute (2) Hypercoagulable state associated with COVID-19 Status: Acute (3) Pulmonary embolism Status: Acute (4) Secondary bacterial pneumonia Status: Acute (5) Poor prognosis Status: Acute (6) Hypothyroidism Status: Chronic (7) HTN (hypertension) Status: Chronic (8) Goals of care, counseling/discussion Status: Acute ABHISHEK TEE MD Apr 24, 2021 19:05
[2021-04-24 22:33] VITALS: BP 136/85
[2021-04-25 02:37] VITALS: BP 140/83
[2021-04-25] MEDS: RT-ALBUTEROL HFA 8.5 GM INHALER IH SCH ×3 (02:37→10:57)
[2021-04-25 04:45] LABS: BASOPHILS # (AUTO) 0.1 10^3/uL (0.0-0.1); BASOPHILS % (AUTO) 0 % (0-10); MEAN CORPUSCULAR VOLUME 92 fL (80-99); MEAN PLATELET VOLUME 12.2 fL (9.0-12.2); PLATELET COUNT 92 10^3/uL (130-400)
[2021-04-25 04:47] LABS: EOSINOPHILS # (AUTO) 0.3 10^3/uL (0.0-0.3); EOSINOPHILS % (AUTO) 2 % (0-10); HEMATOCRIT 31 % (35-52); HEMOGLOBIN 10.3 g/dL (11.5-16.0); LYMPHOCYTES # (AUTO) 1.3 10^3/uL (1.0-4.0); LYMPHOCYTES % (AUTO) 7 % (12-44); MEAN CORPUSCULAR HEMOGLOBIN 30 pg (25-34); MEAN CORPUSCULAR HGB CONC 33 g/dL (32-36); MONOCYTES # (AUTO) 0.8 10^3/uL (0.0-1.0); MONOCYTES % (AUTO) 4 % (0-12); NEUTROPHILS # (AUTO) 16.4 10^3/uL (1.8-7.8); NEUTROPHILS % (AUTO) 86 % (42-75); WHITE BLOOD COUNT 19.1 10^3/uL (4.3-11.0)
[2021-04-25 04:54] LABS: POTASSIUM 4.3 MMOL/L (3.6-5.0)
[2021-04-25 04:55] LABS: CALCIUM 8.1 MG/DL (8.5-10.1)
[2021-04-25 04:56] LABS: INR 1.2 (0.8-1.4); PROTHROMBIN TIME PATIENT 15.3 SEC (12.2-14.7); TOTAL PROTEIN 5.6 GM/DL (6.4-8.2)
[2021-04-25 04:58] LABS: BILIRUBIN,TOTAL 0.6 MG/DL (0.1-1.0)
[2021-04-25 05:00] LABS: CREATININE SERUM 0.62 MG/DL (0.60-1.30); PHOSPHORUS 2.8 MG/DL (2.3-4.7)
[2021-04-25 05:03] LABS: MAGNESIUM 2.4 MG/DL (1.6-2.4)
[2021-04-25 05:51] LABS: ABG OXYGEN SATURATION 93 % (94-100); ABG PCO2 41 MMHG (35-45); ABG PH 7.45 (7.37-7.43); ABG PO2 64 MMHG (79-93); ABG TCO2 29.1 MMOL/L (21.0-31.0); ALLENS TEST POSITIVE
[2021-04-25 05:52] LABS: INSPIRED O2 91% BIPAP; PATIENT TEMP 37; VENTILATOR NO
[2021-04-25] MEDS: NS IV 1000 ML 1,000 ML IV SCH (06:23)
[2021-04-25] MEDS: DexMEDEtomidine 250 ML DRIP 250 ML IV SCH (06:23)
[2021-04-25] MEDS: POTASSIUM CL 10MEQ/50ML IVPB 50 ML IV SCH (06:36)
[2021-04-25] MEDS: MAGNESIUM 1 GM/100 ML IVPB 100 ML IV SCH (06:36)
[2021-04-25] MEDS: KCL 20 MEQ TAB (K-DUR) PO SCH (06:36)
[2021-04-25] MEDS: LEVOTHYROXINE 100 MCG (LEVOTHROID) TAB PO SCH (06:37)
[2021-04-25] MEDS: inSUlin ASPART (NovoLOG) 1 UNIT/0.01 ML (CHARGE PER UNIT) SC SCH ×2 (06:47→13:00)
[2021-04-25 07:38] VITALS: BP 163/79
[2021-04-25] MEDS: ENOXAPARIN 100 MG/1 ML (LOVENOX) SYR SC SCH (09:27)
[2021-04-25] MEDS: DOCUSATE SODIUM 100 MG (COLACE) CAP PO SCH (09:28)
[2021-04-25] MEDS: MICONAZOLE 2% POWDER (DESENEX AF) 90 GM TOP SCH (09:28)
[2021-04-25] MEDS: ACYCLOVIR 400 MG TABLET (ZOVIRAX) PO SCH ×2 (09:28→09:36)
[2021-04-25] MEDS: SENNOSIDES 8.6 MG (SENOKOT) TAB PO SCH (09:28)
[2021-04-25] MEDS: PANTOPRAZOLE 40 MG (PROTONIX) VIAL IV SCH (09:31)
--- NOTE | 2021-04-25 09:35 | Physical Therapy Daily Note ---
PT Daily Note-Current Subjective Patient in bed pre tx, agrees to PT but states she doesn't know how much she will be able to do, voices no complaints of pain. Appearance Patient in bed post tx with nurse call, phone, tray, all needs met. Mental Status Patient Orientation: Person, Place, Situation Attachments: Oxygen (bipap), Fonseca Catheter, IV Transfers SCALE: Activities may be completed with or without assistive devices. 7-Ewqzhuvemr-slqhmeq completes the activity by him/herself with no assistance from a helper. 5-Set-up or Clean-up Assistance-helper sets up or cleans up; patient completes activity. [place] assists only prior to or following the activity. 4-Supervision or Touching Assistance-helper provides verbal cues and/or touching /steadying and/or contact guard assistance as patient completes activity. Assistance may be provided throughout the activity or intermittently. 3-Partial/Moderate Assistance-helper does LESS THAN HALF the effort. [place] lifts, holds or supports trunk or limbs, but provides less than half the effort. 2-Substantial/Maximal Assistance-helper does MORE THAN HALF the effort. [place] lifts or holds trunk or limbs and provides more than half the effort. 8-Jnchsykxv-aaskku does ALL the effort. Patient does none of the effort to complete the activity. Or, the assistance of 2 or more helpers is required for the patient to complete the activity. If activity was not attempted, code reason: 7-Patient Refused. 9-Not Applicable-not attempted and the patient did not perform the activity before the current illness, exacerbation or injury. 10-Not Attempted due to Environmental Limitations-(lack of equipment, weather restraints, etc.). 88-Not Attempted due to Medical Conditions or Safety Concerns. Roll Left & Right (QC): 4 Sit to Lying (QC): 4 Lying to Sitting/Side of Bed(Q: 4 Patient can sit to the side of the bed with SBA, once she gets there her O2 drops immediately to 87% and stays there, she tries to stand on her own but cannot come up completely, sits back down, about 20 seconds after sitting back down her O2 drops to about 84% and she lays back down. O2 comes back up shortly. Treatments sitting, attempted standing Assessment Current Status: Poor Progress Patient had a very difficult time with sitting, she was moaning and coughing the whole time but still willing to participate PT Short Term Goals Short Term Goals Time Frame: Apr 22, 2021 Roll Left & Right: 5 Sit to lyin Lying to sitting on side of be: 5 Sit to stand: 5 Chair/skg-mh-xemyk transfer: 5 Toilet transfer: 5 Walk 10 feet: 4 Walk 50 feet with two turns: 4 Walk 150 feet: 4 PT Thrill Performer Goals Care Home Goals PT Thrill Performer Goals Time Frame: May 02, 2021 Roll Left & Right (QC): 6 Sit to Lying (QC): 6 Lying-Sitting on Side/Bed(QC): 6 Sit to Stand (QC): 6 Chair/Ddx-pk-Akgmr Xfer(QC): 6 Toilet Transfer (QC): 6 Does the Patient Walk: Yes Walk 10 feet (QC): 5 Walk 50ft with 2 Turns (QC): 5 Walk 150 ft (QC): 5 1 Step (curb) (QC): 4 4 Steps (QC): 4 PT Plan Problem List Problem List: Activity Tolerance, Functional Strength, Safety, Balance, Gait, Transfer, Bed Mobility, ROM Treatment/Plan Treatment Plan: Continue Plan of Care Treatment Plan: Bed Mobility, Education, Functional Activity Nicola, Functional Strength, Group Therapy, Gait, Safety, Therapeutic Exercise, Transfers Treatment Duration: May 31, 2021 Frequency: 6 times per week Estimated Hrs Per Day: .25 hour per day Safety Risks/Education Patient Education: Correct Positioning, Safety Issues Teaching Recipient: Patient Teaching Methods: Demonstration, Discussion Response to Teaching: Reinforcement Needed Time/GCodes Time In: 0900 Time Out: 909 Total Billed Treatment Time: 10 Total Billed Treatment 1 visit FA AYAN TOM PT Apr 25, 2021 09:35
--- NOTE | 2021-04-25 09:51 | Occupational Ther Daily Note ---
OT Current Status-Daily Note Subjective Pt alert, lying in bed. Pt stated she did not know if she could participate in therapy today but would try. Mental Status/Objective Patient Orientation: Person, Place, Time, Situation Attachments: IV, Oxygen (BiPap 90%), Telemetry ADL-Treatment Therapy Code Descriptions/Definitions Functional [place] Measure: 0=Not Assessed/NA 4=Minimal Assistance 1=Total Assistance 5=Supervision or Setup 2=Maximal Assistance 6=Modified [place] 3=Moderate Assistance 7=Complete IndependenceSCALE: Activities may be completed with or without assistive devices. 5-Nprhxyuebk-yladaxx completes the activity by him/herself with no assistance from a helper. 5-Set-up or Clean-up Assistance-helper sets up or cleans up; patient completes activity. [place] assists only prior to or following the activity. 4-Supervision or Touching Assistance-helper provides verbal cues and/or touching/steadying and/or contact guard assistance as patient completes activity. Assistance may be provided throughout the activity or intermittently. 3-Partial/Moderate Assistance-helper does LESS THAN HALF the effort. [place] lifts, holds or supports trunk or limbs, but provides less than half the effort. 2-Substantial/Maximal Assistance-helper does MORE THAN HALF the effort. [place] lifts or holds trunk or limbs and provides more than half the effort. 0-Tusevhgvp-ndbvas does ALL the effort. Patient does none of the effort to complete the activity. Or, the assistance of 2 or more helpers is required for the patient to complete the activity. If activity was not attempted, code reason: 7-Patient Refused. 9-Not Applicable-not attempted and the patient did not perform the activity bef ore the current illness, exacerbation or injury. 10-Not Attempted due to Environmental Limitations-(lack of equipment, weather r estraints, etc.). 88-Not Attempted due to Medical Conditions or Safety Concerns. Other Treatment Patient performs supine to sit with SBA, she is able to sit for just a few minutes and attempted to stand before needing to lay back down due to fatigue. Her O2 dropped to 83%, layed back down and it came back up into the 90's. After session, pt lying in bed with call light/phone in reach. All needs met in room. OT Nursing Home Goals Nursing Home Goals Time Frame: May 09, 2021 Eating (QC): 6 Oral Hygiene (QC): 5 Toileting Hygiene (QC): 4 Shower/Bathe Self (QC): 4 Upper Body Dressing (QC): 5 Lower Body Dressing (QC): 4 On/Off Footwear (QC): 4 Additional Goals: 1-Demonstrate ADL Tasks, 2-Verbalize Understanding, 3- ImproveStrength/Nicola 1=Demonstrate adherence to instructed precautions during ADL tasks. 2=Patient will verbalize/demonstrate understanding of assistive devices/modifications for ADL. 3=Patient will improve strength/tolerance for activity to enable patient to perform ADL's. OT Education/Plan Problem List/Assessment Assessment: Decreased Activ Tolerance, Decreased UE Strength, Impaired Self- Care Skills Pt would benefit from skilled OT services in order to increase BUE strength and activity tolerance, increase independence and safety with ADLs, and improve pulmonary function for safe return home. Discharge Recommendations Plan/Recommendations: Continue POC Treatment Plan/Plan of Care Patient would benefit from OT for education, treatment and training to promote independence in ADL's, mobility, safety and/or upper extremity function for ADL's. Plan of Care: ADL Retraining, Functional Mobility, UE Funct Exercise/Act Treatment Duration: May 09, 2021 Frequency: 3 times per week (3-5 times per week) Estimated Hrs Per Day: .25 hour per day Agreement: Yes Rehab Potential: Good Time/GCodes Start Time: 09:00 Stop Time: 09:10 Total Time Billed (hr/min): 10 Billed Treatment Time 1 visit-FA 1 (10 min) CRUZ MCNEAL Apr 25, 2021 09:51
[2021-04-25 10:57] VITALS: BP 159/97
--- NOTE | 2021-04-25 13:41 | Tele-ICU Progress Note ---
Subjective Date Seen by a Provider: Apr 25, 2021 Time Seen by a Provider: 11:00 Sepsis Event Evaluation Height, Weight, BMI Height: '" Weight: lbs. oz. kg; 26.21 BMI Method: Exam Exam Patient acknowledged, consented, and participated in this virtual visit which was conducted using real time audio/video Vital Signs Date Time Temp Pulse Resp B/P (MAP) Pulse Ox O2 Delivery O2 Flow Rate FiO2 04/25/21 13:00 90 04/25/21 12:07 37.7 04/25/21 12:00 95 NIV Bilevel 100 04/25/21 10:57 90 30 93 100.00 04/25/21 10:00 89 27 159/97 92 NIV Bilevel 100.00 04/25/21 09:00 81 26 139/73 95 NIV Bilevel 100.00 04/25/21 08:00 85 32 169/91 90 NIV Bilevel 100.00 04/25/21 08:00 95 NIV Bilevel 100 04/25/21 07:44 36.7 04/25/21 07:38 84 35 88 100.00 04/25/21 07:00 82 04/25/21 07:00 80 28 163/79 91 NIV Bilevel 100.00 04/25/21 06:23 82 118/67 04/25/21 06:00 75 29 118/67 93 NIV Bilevel 90.00 04/25/21 05:00 84 36 164/80 86 NIV Bilevel 90.00 04/25/21 04:00 92 NIV Bilevel 100 04/25/21 04:00 79 27 141/75 92 NIV Bilevel 90.00 04/25/21 04:00 36.4 04/25/21 03:00 76 24 111/55 94 NIV Bilevel 90.00 04/25/21 02:37 73 28 92 90.00 04/25/21 02:00 75 28 140/83 90 NIV Bilevel 90.00 04/25/21 01:00 77 04/25/21 01:00 77 24 135/73 92 NIV Bilevel 90.00 04/25/21 00:00 71 23 92/57 96 NIV Bilevel 90.00 04/25/21 00:00 36.3 94 NIV Bilevel 90.00 04/24/21 23:59 92 NIV Bilevel 100 04/24/21 23:00 73 28 99/58 94 NIV Bilevel 100.00 04/24/21 22:33 76 28 93 90.00 04/24/21 22:00 73 24 136/85 93 NIV Bilevel 100.00 04/24/21 21:00 71 25 142/63 96 NIV Bilevel 100.00 04/24/21 20:00 92 NIV Bilevel 100.00 04/24/21 20:00 81 34 144/74 93 NIV Bilevel 100.00 04/24/21 20:00 92 NIV Bilevel 100 04/24/21 19:29 36.9 04/24/21 19:00 78 04/24/21 19:00 78 24 132/68 92 NIV Bilevel 100.00 04/24/21 18:41 76 28 95 80.00 04/24/21 18:35 NIV Bilevel 80.00 04/24/21 18:00 73 25 99/50 94 NIV Bilevel 100.00 04/24/21 17:00 71 20 110/53 95 NIV Bilevel 90.00 04/24/21 16:16 96 NIV Bilevel 90 04/24/21 16:00 70 20 92/62 95 NIV Bilevel 90.00 04/24/21 16:00 36.4 04/24/21 15:00 72 24 104/53 96 NIV Bilevel 90.00 04/24/21 14:12 75 25 95 90.00 04/24/21 14:00 75 24 99/59 96 NIV Bilevel 90.00 I & O 04/25/21 07:00 Intake Total 870 ml Output Total 1200 ml Balance -330 ml Height & Weight Height: '" Weight: lbs. oz. kg; 26.21 BMI Method: General Appearance: WD/WN, Anxious, Mild Distress HEENT: Other (wearing BiPAP mask) Neck: Full Range of Motion, Normal Inspection, Non Tender Respiratory: Decreased Breath Sounds, Respiratory Distress (tachypnea) Cardiovascular: No Murmur, Irregularly Irregular Capillary Refill: Less Than 3 Seconds Extremity: Normal Inspection, No Pedal Edema Neurologic/Psychiatric: Alert, Depressed Affect Skin: Normal Color, Warm/Dry Results Lab Laboratory Tests 04/24/21 04:23 04/25/21 04:27 Assessment/Plan Assessment/Plan Tele-ICU Physician , Progress Note ) Available chart/ vitals / labs / Images reviewed Video assessment done using teleICU camera, rest of exam as per RN Discussed with RN , EXAM PER RN FEBRILE FiO2 - I/O = even Drips: ns 50 Pressors: , hemodynamically stable Consultants: Hospital course: (04/14) 80 y/o female admitted for COVID+, transfer from other facility - , VT 20L 70% 04/15-- VT 50L 100% , 04/16 - bipap / 65% at night , VT 70L 100% 04/18 - + PE 04/20 - Bipap 15/10 90% , PLT ?- arixtra on hold, DIURESIS X1 with good resuts , but no change in respiratory status 04/22 - 100% bipap, HIT negative , back on lovenox A/P AHRF / ARDS due to severe COVID19 ( CTA neg for pe 04/13 - in other facility , reportedly -Bipap 15/10 100 % -prone position if able - on SIDE - conservative fluid strategy (aim for even or negative fluid balance - DIURESIS X1 with good resuts , but no change in respiratory status RMOR-Xgtyxjymxlt-1/COVID-19 PNA ( Symptom onset unknown now DX unvaccinted -Dexamethasone -actemrta 04/15 ( acyclovir 30 d ) -Hypercoagulable state -> lovenox ppx dose , CTA neg for pe 04/13 - in other facility ,, CT 04/18 + for PE , US LE - negative for DVT - Monitor for superimposed bact PNA -doxy -04/18 - 04/22 ? wbc - might need another abx CT 04/18 + for PE , US LE - negative for DVT - arixtra - STOPPEd 04/21 - lovenox resumed 04/22 70 bid Hyperglycemia - ISS , close f/up on steroids Thrombocytopenia is probably consumption - HIT 04/18negative - back on [id number] PER RN , GOAL OF CARE CHANGING TODAY TO COMFORT Lines : periph (Central Line Necessity Reviewed) Fonseca: 04/14 OG: Nutrition: TPN ? - not eating for 48 h vs TF Analgesia: Anxiety/ delirium VTE Prophylaxis: urszula 40 Stress Ulcer Prophylaxis: po Plans in collaboration with bedside consultants and IM MDs. Discussed with RN to reach out if any questions or concerns A total of 35 minutes of critical care time was devoted to this patient today, required to treat and/or prevent further deterioration of critical care condition ( as above ) . BENEDICT ZAYAS MD Apr 25, 2021 13:41
[2021-04-25] MEDS ORDERED: SALIVA STIMULANT MOUTH SPRAY (BIOTENE) 1.5 OZ MM PRN (13:45)
[2021-04-25] MEDS ORDERED: ARTIFICAL TEARS 0.4 ML UNIT DOSE (REFRESH PLUS) OU PRN (13:45)
[2021-04-25] MEDS ORDERED: PROMETHAZINE INJ 25 MG/ML (PHENERGAN) AMP IVP PRN (13:45)
[2021-04-25] MEDS ORDERED: ONDANSETRON 4 MG/2 ML (SDV) Z0FRAN IVP PRN (13:45)
[2021-04-25] MEDS ORDERED: RT-ALBUTEROL/IPRATROPIUM 3 ML (DUONEB) VIAL INH PRN (13:45)
[2021-04-25] MEDS ORDERED: ACETAMINOPHEN 650 MG SUPP (TYLENOL) PR PRN (13:45)
[2021-04-25] MEDS ORDERED: BISACODYL 10 MG SUPP (DULCOLAX) PR PRN (13:45)
[2021-04-25] MEDS ORDERED: GLYCOPYRROLATE 0.2 MG/ML (ROBINUL) 2 ML VIAL IV PRN (13:45)
[2021-04-25] MEDS ORDERED: LORazepam INJ 2 MG/ML (ATIVAN) VIAL IVP PRN (13:45)
[2021-04-25] MEDS: morphine INJ 4 MG/ML 1 ML (VIAL/SYRINGE) IV PRN ×2 (14:48→15:30)
[2021-04-25] MEDS ORDERED: SODIUM ACETATE IV SCH ×9 (17:00)
[2021-04-25] MEDS ORDERED: [UNRECOGNIZED DRUG - OTHER] IV SCH ×9 (17:00)
[2021-04-25] MEDS ORDERED: POTASSIUM CHLORIDE IV SCH ×9 (17:00)
--- NOTE | 2021-04-25 18:09 | Discharge Summary ---
Discharge Summary Hospital Course Problems/Dx: (1) Acute respiratory distress syndrome (ARDS) due to COVID-19 virus Status: Acute (2) Hypercoagulable state associated with COVID-19 Status: Acute (3) Pulmonary embolism Status: Acute (4) Secondary bacterial pneumonia Status: Acute (5) Poor prognosis Status: Acute (6) Hypothyroidism Status: Chronic (7) HTN (hypertension) Status: Chronic (8) Goals of care, counseling/discussion Status: Acute (9) Pulmonary embolism associated with COVID-19 Status: Acute Hospital Course Date of Admission: Apr 14, 2021 at 09:12 Admission Diagnosis : Acute respiratory failure due to COVID-19 Family Physician/Provider: Otoniel Raya Physician Date of Discharge: 04/25/21 Discharge Diagnosis: Acute respiratory distress syndrome due to COVID-19, pulmonary embolism associated with COVID-19 Hospital Course: Muriel Lipscomb was a 80 year old female who was admitted with acute respiratory failure due to COVID-19. She was treated with steroids and Actemra. She was requiring high flow Vapotherm and BiPAP. Her course was complicated by pulmonary embolism and she was treated with Lovenox. She was requiring maximal support with BiPAP. She did not want to be intubated. She remained BiPAP dependent. She chose to transition to comfort measures only status. She subsequently on 04/25/2021 at 1545 with family at her side. Labs and Pending Lab Test: Laboratory Tests 04/24/21 20:37: Glucometer 184H 04/25/21 04:27: White Blood Count 19.1H, Red Blood Count 3.43L, Hemoglobin 10.3L, Hematocrit 31L , Mean Corpuscular Volume 92, Mean Corpuscular Hemoglobin 30, Mean Corpuscular Hemoglobin Concent 33, Red Cell Distribution Width 14.6H, Platelet Count 92L, Mean Platelet Volume 12.2, Immature Granulocyte % (Auto) 2, Neutrophils (%) (Auto) 86H, Lymphocytes (%) (Auto) 7L, Monocytes (%) (Auto) 4, Eosinophils (%) (Auto) 2, Basophils (%) (Auto) 0, Neutrophils # (Auto) 16.4H, Lymphocytes # (Au to) 1.3, Monocytes # (Auto) 0.8, Eosinophils # (Auto) 0.3, Basophils # (Auto) 0.1, Immature Granulocyte # (Auto) 0.3H, Percent Immature Platelet Fraction 6.9, Prothrombin Time 15.3H, INR Comment 1.2, Sodium Level 141, Potassium Level 4.3, Chloride Level 106, Carbon Dioxide Level 26, Anion Gap 9, Blood Urea Nitrogen 21H, Creatinine 0.62, Estimat Glomerular Filtration Rate 93, BUN/Creatinine Ratio 34, Glucose Level 178H, Calcium Level 8.1L, Corrected Calcium 8.9, Phosphorus Level 2.8, Magnesium Level 2.4, Total Bilirubin 0.6, Aspartate Amino Transf (AST/SGOT) 34, Alanine Aminotransferase (ALT/SGPT) 29, Alkaline Phosphatase 91, Total Protein 5.6L, Albumin 3.0L 04/25/21 05:40: Blood Gas Puncture Site RIGHT RADIAL, Blood Gas Patient Temperature 37, Arterial Blood pH 7.45H, Arterial Blood Partial Pressure CO2 41, Arterial Blood Partial Pressure O2 64L, Arterial Blood HCO3 28H, Arterial Blood Total CO2 29.1, Arterial Blood Oxygen Saturation 93L, Arterial Blood Base Excess 4.0H, Charles Test POSITIVE, Blood Gas Ventilator Setting NO, Blood Gas Inspired Oxygen 91% BIPAP 04/25/21 10:45: Glucometer 208H Home Meds Active Reported Montelukast Sodium 10 Mg Tablet 10 Mg PO DAILY Iprat-Albut 0.5-3(2.5) mg/3 ml (Ipratropium/Albuterol Sulfate) 3 Ml Ampul.neb 3 Ml NEB Q6H PRN Metoprolol Succinate 25 Mg Tab.er.24h 25 Mg PO HS Ondansetron Odt (Ondansetron) 4 Mg Tab.rapdis 4 Mg PO Q6H PRN Azithromycin 250 Mg Tablet 250 Mg PO DAILY FILLED 04-10-2021 #15/14 DAY SUPPLY Hydroxychloroquine Sulfate 200 Mg Tablet 200 Mg PO TID FILLED 04-10-2021 #4214 DAY SUPPLY Dexamethasone 4 Mg Tablet 8 Mg PO DAILY TAKES 2 (4MG) TABS FILLED 04-10-2021 #2814 DAY SUPPLY Levothyroxine Sodium 100 Mcg Tablet 100 Mcg PO DAILY Zinc (Zinc Gluconate) 50 Mg Tablet 50 Mg PO DAILY Assessment/Pt Instructions Patient Consultations TeleICU Discharge Physical Examination Vital Signs Vital Signs Date Time Temp Pulse Resp B/P (MAP) Pulse Ox O2 Delivery O2 Flow Rate FiO2 04/25/21 16:00 25 11 47 Room Air 04/25/21 14:00 148/78 100.00 04/25/21 12:07 37.7 04/25/21 12:00 100 Allergies: Coded Allergies: Penicillins (Verified Allergy, Unknown, 04/14/21) codeine (Verified Allergy, Unknown, 04/14/21) theophylline (Verified Allergy, Unknown, 04/14/21) Discharge Summary Date of Admission Apr 14, 2021 at 09:12 Date of Discharge Discharge Date: Apr 25, 2021 Discharge Time: 15:45 Admission Diagnosis Acute respiratory failure due to COVID-19 Consults/Procedures Consulations TeleICU Comfort Measures/ End of Life Care: Comfort Measures Date of : Apr 25, 2021 Time of : 15:45 Discharge Diagnosis Acute respiratory distress syndrome due to COVID-19 (1) Acute respiratory distress syndrome (ARDS) due to COVID-19 virus Status: Acute (2) Hypercoagulable state associated with COVID-19 Status: Acute (3) Pulmonary embolism Status: Acute (4) Secondary bacterial pneumonia Status: Acute (5) Poor prognosis Status: Acute (6) Hypothyroidism Status: Chronic (7) HTN (hypertension) Status: Chronic (8) Goals of care, counseling/discussion Status: Acute (9) Pulmonary embolism associated with COVID-19 Status: Acute ABHISHEK TEE MD Apr 25, 2021 18:05
== END 2021-04-25 17:50 | disposition expired | DRG 177 ==
LOC: ICU 04-14 09:12
PROVIDERS: ADMIT Internal Medicine; ATTEND Internal Medicine
PROC: 5A09557 Assistance with Respiratory Ventilation, Greater than 96 Consecutive Hours, Continuous Positive Airway Pressure (ICD-10-PCS; principal; 2021-04-14)
DX: U07.1 COVID-19 (principal); J12.82 Pneumonia due to coronavirus disease 2019; J15.9 Unspecified bacterial pneumonia; J80 Acute respiratory distress syndrome; I26.99 Other pulmonary embolism without acute cor pulmonale; D68.69 Other thrombophilia; Z73.0 Burn-out; E03.9 Hypothyroidism, unspecified; I10 Essential (primary) hypertension; R73.9 Hyperglycemia, unspecified; D69.6 Thrombocytopenia, unspecified; Z66 Do not resuscitate; Z51.5 Encounter for palliative care
CPT/HCPCS: 36415; 36569; 71045; 71275; 76937; 80048; 80053; 80076; 82805; 82947; 83735; 84100; 84134; 84145; 84478; 84484; 85007; 85025; 85027; 85379; 85610; 85730; 86022; 93005; 93970; 94640; 94660